=== PATIENT | male | born 1975 | race Caucasian/White ===

== ENCOUNTER → 2018-04-11 10:51 | Outpatient (CLI) | payer OTHER, SELFPAY ==
--- NOTE | 2018-04-11 10:52 | VDLE_ITS ---
Reason For Study: LEG PAIN RIGHT LEFT GSV is normal. CFV is compressible, spontaneous, phasic, CFV is compressible, spontaneous, phasic, competent, and demonstrates normal competent and demonstrates normal augmentation. augmentation. FV is compressible, spontaneous, phasic, competent and demonstrates normal augmentation. POP V is compressible, spontaneous, phasic, competent and demonstrates normal augmentation. T/P Trunk is compressible. PTV is compressible. RT PerV is compressible. Incidental finding: Absent color flow and intraluminal echogenicity SFA. Procedure Exam performed in department. A preliminary report was called and/or faxed to Jacqui Lind and Dr. Guevara. Interpretation Summary Deep veins of the right lower extremity are patent and compressible segmentally. There is no evidence of right lower extremity deep vein thrombosis. Valvular competence appears intact within the proximal deep venous system on the right . The right greater saphenous vein appears patent and compressible segmentally. Incidental note is made of an apparent absence of arterial flow in the right superficial femoral artery. Clinical correlation is advised. Ordering Physician: Valdez Lind Referring Physician: Srinath Guevara Performed By: Erica Ruiz RVT
== END ==
PROVIDERS: Family Provider Student in an Organized Health Care Education/Training Program; PCP Student in an Organized Health Care Education/Training Program; Visit Provider Physician Assistant Surgical
DX: M79.661 Pain in right lower leg (principal)
CPT/HCPCS: 93971

== ENCOUNTER 2018-04-12 12:09 | Emergency (ER) | payer OTHER, SELFPAY ==
[2018-04-12 12:11] VITALS: BP 149/91; PULSE 72; RESP 18; TEMP 36.6; O2SAT 98; BMI 58.7
--- NOTE | 2018-04-12 12:26 | NURSING ---
PT HAS BEEN OUT OF HOME MEDICATIONS FOR 2 WEEKS. PT EDUCATED ON THE IMPORTANCE OF TAKING HIS DIABETIC AND BLOOD THINNER MEDICATIONS. PT STATED HE UNDERSTOOD.
--- NOTE | 2018-04-12 12:38 | ED.DCSUM_ITS ---
- ER Visit Summary Date of Service: 04/12/18 Chief Complaint: Right leg pain with diagnosed blood clot History of Present Illness: The patient is a 42 M who presents for evaluation and treatment after being diagnosed with a blood clot in his right superficial femoral vein. Patient presented to urgent care yesterday due to right pain. It is been going on for a week and a half, crampy in nature and is severe at times. Patient had an ultrasound performed and was notified that it showed a blood clot in the right upper facial femoral vein. Patient is on Plavix but no anticoagulants. He denies any chest pain, shortness of breath, dizziness or lightheadedness, or other complaints other than the leg pain. 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 No recent travel or surgery. No history of venous thromboembolism. No known history of cancer. Physical Examination: Vital signs: afebrile, hemodynamically stable, no hypoxia on room air General: well nourished, well developed, in no distress Skin: warm, dry, no rash, no pallor HEENT: normocephalic and atraumatic; PERRL, EOMI, moist mucous membranes Cardiovascular: regular rate and rhythm without murmurs, no peripheral edema, 2 + pulses all distal extremities Respiratory: No increased work of breathing, lungs are clear to auscultation bilaterally, no rales, rhonchi or wheezing Abdominal: Abdomen is soft, nontender with normoactive bowel sounds, no guarding or rebound, no masses MSK: Moves all extremities, no deformities, normal strength, tenderness to palpation of the right medial thigh, tenderness to palpation of the posterior right calf, positive Homans sign. No erythema, swelling, induration or asymmetry to the lower extremities. DP pulses are 2+ and symmetric. Neuro: Awake and alert, oriented ?4. No facial droop, sensation and motor function intact and symmetric Test Results: Abnormal Lab Results 04/12/18 04/12/18 04/12/18 12:48 12:48 12:48 WBC 9.7 RBC 4.54 L Hgb 14.5 Hct 41.9 MCV 92.3 MCH 31.9 MCHC 34.6 RDW 13.2 RDW Differential 44.2 H Plt Count 233 MPV 9.7 PT 12.6 INR 0.9 APTT 26.9 Sodium 136 Potassium 3.8 Chloride 104 Carbon Dioxide 24.0 Anion Gap 8 BUN 14 Creatinine 0.88 Estim Creat Clear Calc 115.28 Est GFR (MDRD) Af Amer 121 Est GFR (MDRD) Non-Af 100 BUN/Creatinine Ratio 15.8 Glucose 233 H Calcium 8.6 Total Bilirubin 0.30 AST 9 L ALT 19 Alkaline Phosphatase 108 Total Protein 6.9 Albumin 3.8 Globulin 3.1 Albumin/Globulin Ratio 1.2 Emergency Department Course and Treatment: Labs were performed to obtain a baseline renal, hepatic and coagulation status prior to initiation of any anticoagulation. Patient has no symptoms that would be concerning for an associated pulmonary embolism. Patient was discussed with Dr. Samuels's office, and they sent the US results to the ED for review, the results had not been formally read or reported yet. The results stated there was no DVT, as the patient complained of, but rather an incidental finding of a right superficial femoral artery occlusion. I spoke with the therapy technician the perform the exam, and the patient had good distal blood flow to the occlusion and in the rest of the leg. The lower extremity was reevaluated, and there is strong symmetric DP and PT pulses, warmth in the legs down to the toes, good cap refill in the toes, skin is pink, sensation and motor function is intact. The legs are symmetric in appearance. There is no indication of acute arterial occlusion requiring emergent vascular intervention. I had a long discussion with the patient about the importance of him taking his Plavix because he has peripheral artery disease. I discussed the findings on the exam with Dr. Samuels, who has an appointment with the patient tomorrow for his annual physical. She will make sure he gets vascular follow-up and necessary treatment for his arterial clot. Patient plans to keep his appointment tomorrow. He was discharged home well-appearing and in good condition. Treatment Plan: [] Disposition: [] Impression: Peripheral artery disease, right superficial femoral artery occlusion with intact distal blood flow This note was generated with [employer] dictation software. It may contain incorrect words, spelling, and punctuation that were not noted in review of the chart prior to signing ED Disposition - Plan for ED Patient: Disposition: Home or Assisted Living Chief Complaint: Lower Extremity Injury Instructions: Understanding Peripheral Artery Disease, ED PVD Referrals: Srinath Samuels DO [Primary Care Provider] - 1 Day Additional Instructions: Please keep your appointment tomorrow with Dr. Samuels as scheduled. She will sure you get referral for a vascular surgeon any further needed testing. All your medications as prescribed, including your Plavix. Do not miss any doses. If you have any worsening of your condition or any new concerning symptoms, please return immediately to the emergency department for another evaluation.
[2018-04-12] MEDS: HYDROcodone Bitartrate/Apap 5/325 Tablet PO (12:56)
[2018-04-12 12:57] LABS: Hematocrit 41.9 % (40-54); Hemoglobin 14.5 g/dl (13.0-16.5); Mean Corp Hgb Conc 34.6 g/gl (32-36); Mean Corpuscular Hgb 31.9 pg (27.0-32.0); Mean Corpuscular Volume 92.3 fL (80-94); Mean Platelet Vol. 9.7 fl (6.2-12.0); Platelet Count 233 K/mm3 (150-450); RBC Distribution Width CV 13.2 % (11.6-14.6); RBC Distribution Width SD 44.2 fl (35.1-43.9); Red Blood Count 4.54 M/mm3 (4.6-6.2); Scan Indicated on CBC? Y/N NO; White Blood Count 9.7 K/mm3 (4.4-11.0)
[2018-04-12 13:04] LABS: International Normalized Ratio 0.9; Prothrombin Time (Protime)PT. 12.6 SECONDS (11.7-14.9)
[2018-04-12 13:05] LABS: Partial Thromboplast Time 26.9 Seconds (24.1-36.2)
[2018-04-12 13:10] LABS: ALB/GLOB Ratio 1.2 RATIO (0.9-2.4); AST(SGOT) 9 U/L (15-37); Alanine Aminotransfer ALT/SGPT 19 U/L (16-61); Albumin, Serum 3.8 g/dL (3.2-5.0); Alkaline Phosphatase 108 U/L (45-117); Anion Gap 8 (5-15); BUN 14 mg/dL (7-18); BUN/Creat Ratio 15.8 RATIO (10-20); Calcium,Total 8.6 mg/dL (8.5-10.1); Chloride 104 mmol/L (98-107); Creatinine, Serum 0.88 mg/dL (0.70-1.30); EST Glomerular Filtration Rate 100 mL/min (>60); Est Glom Filt Rate - Afr Amer 121 mL/min (>60); Estimated Creatinine Clearance 115.28 ml/min; Globulin 3.1 g/dL (2.2-4.2); Glucose 233 mg/dL (74-106); Potassium 3.8 mmol/L (3.5-5.1); Protein, Total 6.9 g/dL (6.4-8.2); Sodium Level 136 mmol/L (136-145)
--- NOTE | 2018-04-12 14:55 | ED.DEP ---
ED Disposition - Plan for ED Patient: Disposition: Home or Assisted Living Chief Complaint: Lower Extremity Injury Instructions: ED PVD, Understanding Peripheral Artery Disease Referrals: Srinath Samuels DO [Primary Care Provider] - 1 Day Additional Instructions: Please keep your appointment tomorrow with Dr. Samuels as scheduled. She will sure you get referral for a vascular surgeon any further needed testing. All your medications as prescribed, including your Plavix. Do not miss any doses. If you have any worsening of your condition or any new concerning symptoms, please return immediately to the emergency department for another evaluation.
[2018-04-12 15:22] VITALS: BP 138/76; PULSE 90; RESP 14; O2SAT 99
== END 2018-04-12 15:22 | disposition home or self-care (01) ==
PROVIDERS: Emergency Provider Emergency Medicine; Family Provider Student in an Organized Health Care Education/Training Program; PCP Student in an Organized Health Care Education/Training Program
DX: I73.9 Peripheral vascular disease, unspecified (principal); I77.1 Stricture of artery; I25.10 Atherosclerotic heart disease of native coronary artery without angina pectoris; I10 Essential (primary) hypertension; Z79.84 Long term (current) use of oral hypoglycemic drugs; Z79.02 Long term (current) use of antithrombotics/antiplatelets; Z79.899 Other long term (current) drug therapy; Z72.0 Tobacco use
CPT/HCPCS: 80053; 85027; 85610; 85730; 99284; A4216

== ENCOUNTER → 2018-05-26 14:43 | Outpatient (CLI) | payer OTHER, SELFPAY ==
--- NOTE | 2018-05-31 05:59 | LEAS ---
Arterial Study - Arterial Study Arterial Study: Bilateral lower extremity noninvasive arterial exam at rest Patient with bilateral extremity calf claudication Right lower extremity The right low thigh index is abnormal at 0.62. Calf index is 0.66. The right PT and DP ankle-brachial indices at rest are 0.48 and 0.57 respectively with notably abnormal digital indices of 0.23. The right posterior tibial and dorsalis pedis Doppler waveforms are only monophasic. Volume pulse recordings do not demonstrate amplification the calf. All waveforms from the low thigh calf and ankle are depressed and the digital waveforms are significantly depressed Left lower extremity The left low thigh index is normal at 1.13. The calf index is 1.02. Left PT and DP ankle-brachial indices at rest are 1 and 0.98 respectively. The digital indices are abnormal at 0.54. The left posterior tibial and dorsalis pedis Doppler waveforms are triphasic. Volume pulse recordings however do not demonstrate amplification at the calf. The ankle and digital waveforms are mildly depressed. Impression Markedly abnormal right lower extremity with abnormal indices throughout well within the range of vascular claudication. Digital pressures markedly abnormal consistent with rest pain. Findings suggest iliofemoral inflow disease on the right. Suspect additional distal small vessel disease. Left lower extremity demonstrates normal resting indices throughout. The digital indices are diminished consistent with distal small vessel disease. Mark Machado M.D., F.A.C.S.
== END ==
PROVIDERS: Family Provider Student in an Organized Health Care Education/Training Program; PCP Student in an Organized Health Care Education/Training Program; Visit Provider Surgery
DX: I70.201 Unspecified atherosclerosis of native arteries of extremities, right leg (principal)
CPT/HCPCS: 93923

== ENCOUNTER 2018-06-30 08:44 | Day surgery (SDC) | payer OTHER, SELFPAY ==
--- NOTE | 2018-06-24 15:41 | EKG12_ITS ---
Test Reason : PRE-SURGERY Blood Pressure : / mmHG Vent. Rate : 056 BPM Atrial Rate : 056 BPM P-R Int : 130 ms QRS Dur : 090 ms QT Int : 414 ms P-R-T Axes : 033 062 054 degrees QTc Int : 399 ms Sinus bradycardia Otherwise normal ECG Confirmed by ELAN DOZIER, JEY ([id number]), school photograph editor AALIYAH KNOTT ([id number]) on 06/27/2018 2:22:47 PM Referred By: Mark Machado Confirmed By:JEY ANSARI MD
[2018-06-24 16:05] LABS: Hematocrit 42.7 % (40-54); Hemoglobin 14.2 g/dl (13.0-16.5); Mean Corp Hgb Conc 33.3 g/gl (32-36); Mean Corpuscular Hgb 31.2 pg (27.0-32.0); Mean Corpuscular Volume 93.8 fL (80-94); Mean Platelet Vol. 9.5 fl (6.2-12.0); Platelet Count 284 K/mm3 (150-450); RBC Distribution Width CV 13.3 % (11.6-14.6); RBC Distribution Width SD 45.7 fl (35.1-43.9); Red Blood Count 4.55 M/mm3 (4.6-6.2); White Blood Count 9.5 K/mm3 (4.4-11.0)
[2018-06-24 16:06] LABS: Scan Indicated on CBC? Y/N NO
[2018-06-24 16:39] LABS: Anion Gap 9 (5-15); BUN 18 mg/dL (7-18); BUN/Creat Ratio 20.8 RATIO (10-20); Calcium,Total 8.7 mg/dL (8.5-10.1); Chloride 104 mmol/L (98-107); Creatinine, Serum 0.87 mg/dL (0.70-1.30); EST Glomerular Filtration Rate 102 mL/min (>60); Est Glom Filt Rate - Afr Amer 123 mL/min (>60); Glucose 118 mg/dL (74-106); Potassium 4.2 mmol/L (3.5-5.1); Sodium Level 139 mmol/L (136-145)
[2018-06-29 07:55] VITALS: BMI 27.3
[2018-06-30 14:41] LABS: ACT Activated Clotting Time 131 sec (74-137)
[2018-06-30 14:41] LABS: ACT Activated Clotting Time 224 sec (74-137)
[2018-06-30 14:41] LABS: ACT Activated Clotting Time 208 sec (74-137)
[2018-06-30 14:41] LABS: ACT Activated Clotting Time 235 sec (74-137)
[2018-06-30 14:41] LABS: ACT Activated Clotting Time 235 sec (74-137)
[2018-06-30 15:45] VITALS: BP 111/69; PULSE 51; RESP 18; TEMP 36.7; O2SAT 98
[2018-06-30 16:00] VITALS: BP 111/65; PULSE 54; RESP 16; TEMP 36.7; O2SAT 94
[2018-06-30 16:30] VITALS: BP 109/64; PULSE 54; RESP 16; TEMP 36.7; O2SAT 97
[2018-06-30] MEDS: HYDROcodone Bitartrate/Apap 5/325 Tablet PO (16:45)
[2018-06-30 17:00] VITALS: BP 117/71; PULSE 61; RESP 16; TEMP 36.7; O2SAT 97
[2018-06-30 18:00] VITALS: BP 123/73; PULSE 51; RESP 16; TEMP 37.1; O2SAT 97
--- NOTE | 2018-06-30 18:42 | PCM.OPRPT ---
Problem List (1) Femoral artery occlusion, right Status: Acute Report of Operation Date of Procedure: 06/30/18 Pre-Operative Diagnosis: Severe right lower extremity vascular claudication Post-Operative Diagnosis: Severe right lower extremity vascular claudication with long segment right superficial femoral artery occlusion from its origin down close to Clark's canal Surgery/Procedure Performed:: Abdominal pelvic right lower extremity arteriogram with endovascular turbo Hawk atherectomy and angioplasty and Stent grafting. [place] Viabahn 6 x 250 mm. [place] Tigris 6 x 100 mm Description of Surgical Findings:: Timeout and informed consent was obtained. 42-year-old kishore was taken to special procedure lab. He was placed supine on the table. Throughout the procedure he had iron micrograms of fentanyl and 4 mg Versed is intravenous sedation. Bilateral groins were sterilely prepped draped. Ultrasound was used to identify the left common femoral artery. Under ultrasound guidance 2% lidocaine was instilled as a local anesthetic. A total of 10 cc was used throughout the procedure. Micropuncture needle was inserted retrograde and with flow to the left common femoral artery followed by micropuncture wire. Micropuncture sheath. 035 J-wire was inserted. I 5 [place] short sheath dilator was inserted. An 035 angled Glidewire was used to place a 5 [place] universal flush catheter into the abdominal aorta. Using Visipaque contrast the rate of 15 cc a second for 15 cc a AP aortogram was obtained. Using the angled Glidewire and the flush catheter [place] was gained to the right distal external iliac. I then exchanged out for a 035 quick cross catheter. Static views of the right thigh were obtained. I was then able to place an 035 stiff Glidewire. I remove the quick cross catheter and the 5 [place] sheath and was able to advance a 7 [place] destination sheath. Throughout the procedure then in aliquots the patient received a total of 14,000 units of heparin based upon body weight and ACT measurements. Having the destination sheath and placed I used a 035 quick cross catheter and a connect wire was able to get through the Of the flush occlusion of the right superficial femoral artery and I was able to use the wire to advance. I then exchanged out for an 018 quick cross catheter was able to advance the connect wire down to the distal right superficial femoral artery but it would not advance further so that I withdrew that 018 quick cross catheter we placed an 035 quick cross catheter remove the connect wire placed an 035 stiff Glidewire and was then able to achieve true lumen. I advanced the 035 quick cross and obtain images of the right knee area. Having achieved that I then placed a 6 mm spider device. I placed a 4 x 80 mm ever cross balloon and performed very minimal balloon angioplasty of the entire area of occluded right superficial femoral artery from its origin down close to Clark's canal. I then utilized a LXM [employer] atherectomy device. I tried to stay contralateral to the area of sub-intimal wire placement. Several different passes were performed. Good specimen was obtained. The patient seemed to tolerate that well. Hand-injection views however demonstrated suggestion of possible slight pseudoaneurysm proximally and area of dissection distally. Even after low-grade angioplasty with a 6 x 200 mm ever cross balloon I was not happy with the result. So I then placed proximally a [place] Viabahn 6 x 250 [place] device. [id number]. Serial #[id number]. That was nicely positioned just at the origin of the right superficial femoral artery. Distally however there was still dissection so I then placed a core Tigris 6 500 mm device. Reference number [id number] a with a serial number of [id number]. Both of the stents were then post angioplastied with a 6 x 200 mm ever cross balloon. Hand-injection view done now through the destination sheath demonstrates complete resolution of all areas of previous total occlusion. There is excellent flow to the popliteal area and infrageniculate vessels. I withdrew the sheath. Using a 035 Magic wire then inserted a Perclose device on the left. The Perclose device was applied with excellent results. There were no apparent complications blood loss was minimal he tolerated the procedure well there was a palpable right DP pulse at the completion he was taken to the recovery area in satisfactory condition. Images demonstrated a patent abdominal aorta with mild occlusive disease distally just prior to the bifurcation but not hemodynamically significant. Bilateral common femoral arteries and internal iliac arteries and external iliac arteries are widely patent. The right common femoral artery is patent as is the right profundofemoral. There was flush occlusion of the origin of the right superficial femoral artery with long segment occlusion down to approximately 4 cm from Clark's canal. There appears to be at least initial three-vessel runoff in the right infrageniculate area. Subsequent to the treatment of the right superficial femoral artery with atherectomy and angioplasty and stent graft placement there now appears to be complete resolution of the area of total occlusion. There appears to be spasm in the infra geniculate area clinically foot appear to be warm with a palpable DP pulse. Total contrast used was 170 cc Impression Successful reconstitution of complete occlusion right superficial femoral artery with atherectomy and angioplasty and stent graft placement Mark Machado M.D., F.A.C.S. Type of Anesthesia:: IV Sedation, Local
--- NOTE | 2018-06-30 18:54 | OP.PCM_ITS ---
Problem List (1) Femoral artery occlusion, right Status: Acute Report of Operation Date of Procedure: 06/30/18 Pre-Operative Diagnosis: Severe right lower extremity vascular claudication Post-Operative Diagnosis: Severe right lower extremity vascular claudication with long segment right superficial femoral artery occlusion from its origin down close to Clark's canal Surgery/Procedure Performed:: Abdominal pelvic right lower extremity arteriogram with endovascular turbo Hawk atherectomy and angioplasty and Stent grafting. [place] Viabahn 6 x 250 mm. [place] Tigris 6 x 100 mm Description of Surgical Findings:: Timeout and informed consent was obtained. 42-year-old kishore was taken to special procedure lab. He was placed supine on the table. Throughout the procedure he had iron micrograms of fentanyl and 4 mg Versed is intravenous sedation. Bilateral groins were sterilely prepped draped. Ultrasound was used to identify the left common femoral artery. Under ultrasound guidance 2% lidocaine was instilled as a local anesthetic. A total of 10 cc was used throughout the procedure. Micropuncture needle was inserted retrograde and with flow to the left common femoral artery followed by micropuncture wire. Micropuncture sheath. 035 J-wire was inserted. I 5 [place] short sheath dilator was inserted. An 035 angled Glidewire was used to place a 5 [place] universal flush catheter into the abdominal aorta. Using Visipaque contrast the rate of 15 cc a second for 15 cc a AP aortogram was obtained. Using the angled Glidewire and the flush catheter [place] was gained to the right distal external iliac. I then exchanged out for a 035 quick cross catheter. Static views of the right thigh were obtained. I was then able to place an 035 stiff Glidewire. I remove the quick cross catheter and the 5 [place] sheath and was able to advance a 7 [place] destination sheath. Throughout the procedure then in aliquots the patient received a total of 14,000 units of heparin based upon body weight and ACT measurements. Having the destination sheath and placed I used a 035 quick cross catheter and a connect wire was able to get through the Of the flush occlusion of the right superficial femoral artery and I was able to use the wire to advance. I then exchanged out for an 018 quick cross catheter was able to advance the connect wire down to the distal right superficial femoral artery but it would not advance further so that I withdrew that 018 quick cross catheter we placed an 035 quick cross catheter remove the connect wire placed an 035 stiff Glidewire and was then able to achieve true lumen. I advanced the 035 quick cross and obtain images of the right knee area. Having achieved that I then placed a 6 mm spider device. I placed a 4 x 80 mm ever cross balloon and performed very minimal balloon angioplasty of the entire area of occluded right superficial femoral artery from its origin down close to Clark's canal. I then utilized a LXM [employer] atherectomy device. I tried to stay contralateral to the area of sub-intimal wire placement. Several different passes were performed. Good specimen was obtained. The patient seemed to tolerate that well. Hand-i njection views however demonstrated suggestion of possible slight pseudoaneurysm proximally and area of dissection distally. Even after low-grade angioplasty with a 6 x 200 mm ever cross balloon I was not happy with the result. So I then placed proximally a [place] Viabahn 6 x 250 [place] device. [id number]. Serial #[id number]. That was nicely positioned just at the origin of the right superficial femoral artery. Distally however there was still dissection so I then placed a core Tigris 6 500 mm device. Reference number [id number] a with a serial number of [id number]. Both of the stents were then post angioplastied with a 6 x 200 mm ever cross balloon. Hand-injection view done now through the destination sheath demonstrates complete resolution of all areas of previous total occlusion. There is excellent flow to the popliteal area and infrageniculate vessels. I withdrew the sheath. Using a 035 Magic wire then inserted a Perclose device on the left. The Perclose device was applied with excellent results. There were no apparent complications blood loss was minimal he tolerated the procedure well there was a palpable right DP pulse at the completion he was taken to the recovery area in satisfactory condition. Images demonstrated a patent abdominal aorta with mild occlusive disease distally just prior to the bifurcation but not hemodynamically significant. Bilateral common femoral arteries and internal iliac arteries and external iliac arteries are widely patent. The right common femoral artery is patent as is the right profundofemoral. There was flush occlusion of the origin of the right superficial femoral artery with long segment occlusion down to approximately 4 cm from Clark's canal. There appears to be at least initial three-vessel runoff in the right infrageniculate area. Subsequent to the treatment of the right superficial femoral artery with atherectomy and angioplasty and stent graft placement there now appears to be complete resolution of the area of total occlusion. There appears to be spasm in the infra geniculate area clinically foot appear to be warm with a palpable DP pulse. Total contrast used was 170 cc Impression Successful reconstitution of complete occlusion right superficial femoral artery with atherectomy and angioplasty and stent graft placement Mark Machado M.D., F.A.C.S. Type of Anesthesia:: IV Sedation, Local
[2018-06-30 19:00] VITALS: BP 136/68; PULSE 62; RESP 18; TEMP 36.1; O2SAT 97
--- NOTE | 2018-06-30 19:10 | NURSING ---
Pt walked hallway post bedrest. Heart cath site c/d/i, no signs of bleeding or hematoma noted. Pt tolerated walking well.
== END 2018-06-30 19:30 | disposition home or self-care (01) ==
LOC: CLSP 08:44 → PCU 15:50
PROVIDERS: Family Provider Student in an Organized Health Care Education/Training Program; PCP Student in an Organized Health Care Education/Training Program; Referring Provider Surgery; Visit Provider Surgery
DX: I70.211 Atherosclerosis of native arteries of extremities with intermittent claudication, right leg (principal); E11.9 Type 2 diabetes mellitus without complications; I51.9 Heart disease, unspecified; I25.2 Old myocardial infarction; Z95.5 Presence of coronary angioplasty implant and graft; Z79.84 Long term (current) use of oral hypoglycemic drugs; Z79.899 Other long term (current) drug therapy; F17.210 Nicotine dependence, cigarettes, uncomplicated
CPT/HCPCS: 36200; 36245; 36415; 37227; 75625; 75710; 76937; 80048; 85027; 85347; 93005; 99152; 99153; J7030; J7040; Q9967; A4216; C1714; C1725; C1760; C1769; C1874; C1884; C1887; C1894

== ENCOUNTER → 2018-07-27 13:43 | Outpatient (CLI) | payer OTHER, SELFPAY ==
--- NOTE | 2018-07-27 17:26 | LEAS ---
Arterial Study - Arterial Study Arterial Study: Bilateral lower extremity noninvasive arterial exam with exercise Patient with history of peripheral vascular occlusive disease and right lower extremity stent Right lower extremity The right PT and DP ankle-brachial indices at rest are 1.04 and 0.97 respectively with a digital index of 0.52. The right posterior tibial and dorsalis pedis Doppler waveforms are triphasic. Volume pulse recordings demonstrate nice waveforms at the calf ankle and digital level With exercise the right ROBERT goes from resting 1.042 media after exercise at 1.01 Left lower extremity The left low thigh index is 0.87. The left calf index is 1.03. The left PT and DP ankle-brachial indices at rest are 0.93 and 0.94 respectively. Digital index on the left is 0.66 the left posterior tibial and dorsalis pedis Doppler waveforms are triphasic. The volume pulse recordings demonstrate normal amplification the calf. The ankle waveforms are well maintained. Digital waveforms are moderately depressed. With exercise left ROBERT goes from resting 0.942 immediately after exercise at 0.9 Impression Findings suggest normal right lower extremity large vessel arterial inflow with normal exercise response. Digital indices are moderately depressed aspect consistent with distal small vessel disease versus temperature effect Left lower extremity resting indices are mildly abnormal at the low thigh PT and DP levels consistent with mild occlusive disease which would be in the range of early claudication. The exercise indices however do not demonstrate a clinically significant drop. Is of additional note that the patient was asymptomatic. The left digital indices again moderately depressed consistent with distal small vessel disease or temperature effect Mark Machado M.D., F.A.C.S.
== END ==
PROVIDERS: Family Provider Student in an Organized Health Care Education/Training Program; PCP Student in an Organized Health Care Education/Training Program; Referring Provider Surgery; Visit Provider Surgery
DX: I70.201 Unspecified atherosclerosis of native arteries of extremities, right leg (principal)
CPT/HCPCS: 93924

== ENCOUNTER 2018-11-23 08:08 | Emergency (ER) | payer OTHER, SELFPAY ==
[2018-11-23 08:08] VITALS: BP 138/80; PULSE 68; RESP 18; TEMP 36.6; O2SAT 100; BMI 27.9
--- NOTE | 2018-11-23 08:24 | EKG12_ITS ---
Test Reason : DIZZINESS Blood Pressure : / mmHG Vent. Rate : 060 BPM Atrial Rate : 060 BPM P-R Int : 128 ms QRS Dur : 082 ms QT Int : 378 ms P-R-T Axes : 017 039 051 degrees QTc Int : 378 ms Normal sinus rhythm Normal ECG Confirmed by JEY ANSARI MD ([id number]), editor book AALIYAH KNOTT ([id number]) on 11/29/2018 8:49:44 AM Referred By: THERON Confirmed By:JEY ANSARI MD
--- NOTE | 2018-11-23 08:25 | CT_ITS ---
STUDY: CTA NECK WITH CONTRAST REASON FOR EXAM: Male, 43 years old. Dizziness. RADIATION DOSAGE (If Supplied By Facility): CTDIvol = ( 28 ) mGy, DLP = ( 1352.61 ) mGycm TECHNIQUE: CT angiography with multi-detector data acquisition was performed from the aortic arch to the skull base following intravenous administration of Isovue 370 100 IV. MIP images were reconstructed from the axial data set. Post-processing of the angiographic images was performed, with multiplanar reformation and 3D reconstruction. Individualized dose optimization techniques were used for this CT. COMPARISON: None. FINDINGS: AORTIC ARCH: Normal visualized aortic arch. Normal origins of the brachiocephalic, left common carotid, and left subclavian arteries. RIGHT CAROTID ARTERIES: Normal right common carotid artery (CCA). Normal right common carotid bulb. Normal origin of the right internal carotid (ICA) artery without a hemodynamically significant stenosis. Normal visualized cervical portion of the right internal carotid artery. Normal origin of the right external carotid artery (ECA). LEFT CAROTID ARTERIES: Normal left common carotid artery (CCA). Normal left common carotid bulb. Normal origin of the left internal carotid (ICA) artery without a hemodynamically significant stenosis. Normal visualized cervical portion of the left internal carotid artery. Normal origin of the left external carotid artery (ECA). VERTEBRAL ARTERIES: Normal bilateral vertebral arteries. IMPRESSION: Normal bilateral cervical carotid and vertebral arteries. Electronically Signed: Puneet Ross, at 9:34 EST , Service support , STUDY: CTA OF THE BRAIN REASON FOR EXAM: Male, 43 years old. Dizziness. RADIATION DOSAGE (If Supplied By Facility): CTDIvol = ( 29.09 ) mGy, DLP = ( 1352.61 ) mGycm TECHNIQUE: CT angiography was performed with a multi-detector CT scanner. Data acquisition was obtained from the skull base through the vertex following intravenous administration of Isovue 370 100 IV. MIP images were reconstructed from the axial data set. Post-processing of the angiographic images was performed, with multiplanar reformation and 3D reconstruction. Individualized dose optimization techniques were used for this CT. COMPARISON: None. FINDINGS: Normal bilateral petrous carotid arteries. Normal right cavernous carotid artery with a normal supraclinoid bifurcation. There is calcified plaque formation of the left cavernous carotid artery, without a cross-sectional luminal stenosis. Normal right A1 segments of the anterior cerebral artery. Normal left A1 segments of the anterior cerebral artery. Normal intact anterior communicating artery (ACOM). Normal bilateral A2 segments of the anterior cerebral arteries. Normal right M1 and M2 segments of the middle cerebral arteries, with a normal M1 bifurcation. Normal left M1 and M2 segments of the middle cerebral arteries, with a normal M1 bifurcation. Normal right posterior communicating artery (PCOM). Normal left posterior communicating artery (PCOM). Normal bilateral vertebral arteries. Normal basilar artery with a normal basilar bifurcation. The visualized bilateral superior cerebellar (SCA) arteries are normal. Normal bilateral P1, P2 and visualized P3 segments of the posterior cerebral arteries. There is no demonstrated aneurysm of the [place]. There is no demonstrated abnormality of the visualized brain. CT/CTA Head W/WO Contrast IMPRESSION: Nonstenotic calcified plaques of the left cavernous carotid artery. Electronically Signed: Puneet Ross, at 9:35 EST , Service support ,
--- NOTE | 2018-11-23 08:25 | CT_ITS ---
STUDY: CTA NECK WITH CONTRAST REASON FOR EXAM: Male, 43 years old. Dizziness. RADIATION DOSAGE (If Supplied By Facility): CTDIvol = ( 28 ) mGy, DLP = ( 1352.61 ) mGycm TECHNIQUE: CT angiography with multi-detector data acquisition was performed from the aortic arch to the skull base following intravenous administration of Isovue 370 100 IV. MIP images were reconstructed from the axial data set. Post-processing of the angiographic images was performed, with multiplanar reformation and 3D reconstruction. Individualized dose optimization techniques were used for this CT. COMPARISON: None. FINDINGS: AORTIC ARCH: Normal visualized aortic arch. Normal origins of the brachiocephalic, left common carotid, and left subclavian arteries. RIGHT CAROTID ARTERIES: Normal right common carotid artery (CCA). Normal right common carotid bulb. Normal origin of the right internal carotid (ICA) artery without a hemodynamically significant stenosis. Normal visualized cervical portion of the right internal carotid artery. Normal origin of the right external carotid artery (ECA). LEFT CAROTID ARTERIES: Normal left common carotid artery (CCA). Normal left common carotid bulb. Normal origin of the left internal carotid (ICA) artery without a hemodynamically significant stenosis. Normal visualized cervical portion of the left internal carotid artery. Normal origin of the left external carotid artery (ECA). VERTEBRAL ARTERIES: Normal bilateral vertebral arteries. IMPRESSION: Normal bilateral cervical carotid and vertebral arteries. Electronically Signed: Puneet Ross, at 9:34 EST , Service support , STUDY: CTA OF THE BRAIN REASON FOR EXAM: Male, 43 years old. Dizziness. RADIATION DOSAGE (If Supplied By Facility): CTDIvol = ( 29.09 ) mGy, DLP = ( 1352.61 ) mGycm TECHNIQUE: CT angiography was performed with a multi-detector CT scanner. Data acquisition was obtained from the skull base through the vertex following intravenous administration of Isovue 370 100 IV. MIP images were reconstructed from the axial data set. Post-processing of the angiographic images was performed, with multiplanar reformation and 3D reconstruction. Individualized dose optimization techniques were used for this CT. COMPARISON: None. FINDINGS: Normal bilateral petrous carotid arteries. Normal right cavernous carotid artery with a normal supraclinoid bifurcation. There is calcified plaque formation of the left cavernous carotid artery, without a cross-sectional luminal stenosis. Normal right A1 segments of the anterior cerebral artery. Normal left A1 segments of the anterior cerebral artery. Normal intact anterior communicating artery (ACOM). Normal bilateral A2 segments of the anterior cerebral arteries. Normal right M1 and M2 segments of the middle cerebral arteries, with a normal M1 bifurcation. Normal left M1 and M2 segments of the middle cerebral arteries, with a normal M1 bifurcation. Normal right posterior communicating artery (PCOM). Normal left posterior communicating artery (PCOM). Normal bilateral vertebral arteries. Normal basilar artery with a normal basilar bifurcation. The visualized bilateral superior cerebellar (SCA) arteries are normal. Normal bilateral P1, P2 and visualized P3 segments of the posterior cerebral arteries. There is no demonstrated aneurysm of the [place]. There is no demonstrated abnormality of the visualized brain. CT/CTA Neck W/WO Contrast IMPRESSION: Nonstenotic calcified plaques of the left cavernous carotid artery. Electronically Signed: Puneet Ross, at 9:35 EST , Service support ,
--- NOTE | 2018-11-23 08:27 | RAD_ITS ---
STUDY: X-RAY CHEST REASON FOR EXAM: Male, 43 years old. Weakness and dizziness. TECHNIQUE: Single AP portable view of the chest. COMPARISON: Comparison is made with prior study dated November 26, 2016. FINDINGS: The lungs are clear and expanded. There is no demonstrated pleural abnormality. Normal size heart. Normal mediastinum and pj. Normal visualized pulmonary arteries. Normal visualized aortic arch and descending thoracic aorta. Normal visualized thoracic spine. Normal visualized ribs, clavicles, and shoulders. There is no demonstrated abnormality of the visualized soft tissue structures of the upper abdomen. RAD/Chest 1 View (Portable) IMPRESSION: Normal x-ray examination of the chest. Electronically Signed: Puneet Ross, at 8:57 EST , Service support ,
[2018-11-23] MEDS: Ondansetron 4 MG/2 ML Vial IV (08:51)
[2018-11-23] MEDS: Morphine 4 MG/ML Syringe IV (08:51)
[2018-11-23] MEDS: 0.9% Normal Saline 1,000 ML 1000 ML IV (08:51)
--- NOTE | 2018-11-23 08:58 | ED.VISSUMM ---
- ER Visit Summary Date of Service: 11/23/18 Chief Complaint: Headache, dizziness History of Present Illness: The patient is a 43 M with medical history significant for coronary vascular disease and peripheral vascular disease who presents to the emergency department with headache, neck pain, dizziness. Patient states that yesterday, he developed a mild headache. He states he had some pounding behind both eyes. He states he also had some posterior neck pain. Overnight, he feels like his symptoms have gotten worse. He states he has been dizzy that he describes as sensation of motion with walking. He denies any trouble speaking. He denies any vision changes. He has no history of stroke. The patient does smoke. He states his been compliant with his medications. He denies any trauma. Physical Examination: Vital signs reviewed General: Well-nourished, well-developed Head: Normocephalic, atraumatic Eyes: Pupils equal and reactive, extraocular muscles intact Neck, supple, no lymphadenopathy Heart: Regular rate and rhythm Respiratory: No distress, clear bilaterally Abdomen: Soft, nontender, nondistended, no peritoneal signs Back: Nontender Extremities: Nontender, no edema, no cords Skin: Normal color no rash Neuro: Alert and oriented, no focal or lateralizing deficits Test Results: [] Emergency Department Course and Treatment: It is hard to determine if patient's symptoms are vertiginous versus a different process. He has no history of connective tissue disorder, but does have rather significant history of coronary vascular disease. I did want to rule out vertebrobasilar insufficiency versus posterior arterial thrombus. Patient underwent CTA of the head and neck. This shows no acute arterial thrombus or acute cut off. His posterior circulation is normal. Patient's headache was treated and had resolved. He has no further dizziness. He can ambulate with steady gait. I do feel that this is more likely a peripheral vertigo. He has no other brainstem symptoms along with an unremarkable CTA. At this time, I do feel he is safe for discharge and outpatient follow-up. He is comfortable with this plan of care. Treatment Plan: [] Disposition: Discharge Impression: 1. Vertigo This note was generated with [employer] software. It may contain incorrect words, spelling, and punctuation that were not noted in review of the chart prior to signing ED Disposition - Plan for ED Patient: Instructions: ED Vertigo Unspecified Prescriptions: Meclizine HCl 25 mg PO Q8H PRN #30 tab PRN Reason: Dizziness Referrals: Srinath Samuels DO [Primary Care Provider] -
[2018-11-23 09:04] LABS: Absolute Lymphocyte Count 1.85 X10^3/ul (0.83-4.51); Absolute Neutrophil Count 7.2 X10^3/uL (2.0-7.7); Basophil# 0.02 X10^3/uL; Basophil% 0.2 % (0-1); Eosinophil# 0.05 X10^3/uL; Eosinophils% 0.5 % (0-5); Hematocrit 45.2 % (40-54); Hemoglobin 15.1 g/dl (13.0-16.5); Lymphocyte # 1.85 X10^3/ul (4.0); Lymphocyte % 18.6 % (19-41); Mean Corp Hgb Conc 33.4 g/gl (32-36); Mean Corpuscular Hgb 31.3 pg (27.0-32.0); Mean Corpuscular Volume 93.6 fL (80-94); Mean Platelet Vol. 9.5 fl (6.2-12.0); Monocyte# 0.81 X10^3/uL; Monocyte% 8.1 % (0-10); Neutrophil # 7.19 X10^3/uL (2.7-7.7); Neutrophil % 72.4 % (47-70); Platelet Count 276 K/mm3 (150-450); RBC Distribution Width SD 44.3 fl (35.1-43.9); Red Blood Count 4.83 M/mm3 (4.6-6.2); White Blood Count 9.9 K/mm3 (4.4-11.0)
[2018-11-23 09:05] LABS: POSITIVE COUNT NO; POSITIVE DIFFERENTIAL NO; POSITIVE MORPHOLOGY NO
[2018-11-23 09:20] LABS: ALB/GLOB Ratio 1.3 RATIO (0.9-2.4); AST(SGOT) 19 U/L (15-37); Alanine Aminotransfer ALT/SGPT 31 U/L (16-61); Albumin, Serum 4.1 g/dL (3.2-5.0); Alkaline Phosphatase 99 U/L (45-117); Anion Gap 10 (5-15); BUN 15 mg/dL (7-18); BUN/Creat Ratio 16.9 RATIO (10-20); Calcium,Total 8.9 mg/dL (8.5-10.1); Chloride 105 mmol/L (98-107); Creatinine, Serum 0.89 mg/dL (0.70-1.30); EST Glomerular Filtration Rate 99 mL/min (>60); Est Glom Filt Rate - Afr Amer 120 mL/min (>60); Estimated Creatinine Clearance 109.36 ml/min; Globulin 3.2 g/dL (2.2-4.2); Glucose 223 mg/dL (74-106); Potassium 4.1 mmol/L (3.5-5.1); Protein, Total 7.3 g/dL (6.4-8.2); Sodium Level 138 mmol/L (136-145)
[2018-11-23 09:49] VITALS: BP 114/70; PULSE 58; RESP 19; O2SAT 99
== END 2018-11-23 09:51 | disposition home or self-care (01) ==
LOC: ED 08:41
PROVIDERS: Emergency Provider Emergency Medicine; Family Provider Student in an Organized Health Care Education/Training Program; PCP Student in an Organized Health Care Education/Training Program
DX: R42 Dizziness and giddiness (principal); I25.10 Atherosclerotic heart disease of native coronary artery without angina pectoris; E11.9 Type 2 diabetes mellitus without complications; I73.9 Peripheral vascular disease, unspecified; R11.0 Nausea; M54.2 Cervicalgia; R51 Headache; Z79.84 Long term (current) use of oral hypoglycemic drugs; Z79.02 Long term (current) use of antithrombotics/antiplatelets; Z79.82 Long term (current) use of aspirin; Z79.899 Other long term (current) drug therapy
CPT/HCPCS: 70496; 70498; 71045; 80053; 85025; 93005; 96361; 96374; 96375; 99284; J7030; Q9967; J2405

== ENCOUNTER 2019-01-17 10:36 | Emergency (ER) | payer OTHER, SELFPAY ==
[2019-01-17 10:37] VITALS: BP 124/74; PULSE 71; RESP 18; TEMP 36.6; O2SAT 98; BMI 27.6
--- NOTE | 2019-01-17 10:58 | VDLE_ITS ---
Reason For Study: LEG PAIN RIGHT LEFT GSV is normal. CFV is compressible, spontaneous, phasic, CFV is compressible, spontaneous, phasic, competent, and demonstrates normal competent and demonstrates normal augmentation. augmentation. FV is compressible, spontaneous, phasic, competent and demonstrates normal augmentation. POP V is compressible, spontaneous, phasic, competent and demonstrates normal augmentation. T/P Trunk is compressible. PTV is compressible. RT PerV is compressible. Incidental finding of RT SFA stent absent color flow with intraluminal echoes. Procedure Exam performed portable in ED. A preliminary report was called and/or faxed to Dr. Rodríguez. Interpretation Summary There is no evidence of right lower extremity deep vein thrombosis. Right greater saphenous vein appears patent and compressible segmentally. Normal flow patterns left common femoral vein Occluded right superficial femoral artery stent Ordering Physician: Ollie Rodríguez Referring Physician: Srinath Guevara Performed By: Erica Ruiz RVT
--- NOTE | 2019-01-17 11:01 | ED.DCSUM_ITS ---
History of Present Illness Chief Complaint: Lower Extremity Injury Informant: Patient Onset: Days - 2 Context: Gradual Onset Narrative: Nontraumatic right lower extremity pain over 2 days. Pain in the calf worse with ambulation. No recent travel, surgeries, or immobilizations. No history of PE or DVT. History of vascular stenting right lower extremity June [address] Mark Machado. He reports he is on Plavix and takes it daily. Admits to tobacco history for which he continues. He is a diabetic. Also history of coronary disease with stenting. No chest pains or shortness of breath. Pain worse with activity improves with rest. Has not made his yearly follow-up appointment again with Dr. Machado Prior similar symptoms: Yes Past Medical History - Allergies and Home Meds Allergies/Adverse Reactions: Allergies sertraline Allergy (Severe, Verified 01/17/19 10:39) Rash Penicillins Allergy (Verified 01/17/19 10:39) Unknown beta fadi Adverse Reaction (Severe, Uncoded 01/17/19 10:39) bradycardia Primary Care Physician: Srinath Samuels DO [Primary Care Provider] - Surgical History: - - [employer] removal Smoking Status: Current every day smoker Review of Systems General: Denies: Chills, Fever, Sweats Eyes: Denies: Visual changes - bilaterally, Diplopia ENT: Denies: Rhinorrhea, Sore throat Cardiovascular: Denies: Chest pain, Palpitations Respiratory: Denies: Dyspnea, Cough, Dyspnea on exertion Gastrointestinal: Denies: Abdominal pain, Nausea, Vomiting, Diarrhea, Melena, Hematochezia Genitourinary: Denies: Dysuria, Hematuria, Frequency Musculoskeletal: Reports: Extremity Pain Skin: Denies: Rash, Wounds Neurological: Denies: Headache, Weakness, Numbness Physical Exam Vital Signs/Narrative: Vital Signs Temp Pulse Resp BP Pulse Ox 01/17/19 10:37 97.9 F 71 18 124/74 H 98 Inital Vital Signs reviewed: Yes General: Well nourished, Well developed, No Acute Distress Head: Normocephalic, Atraumatic Eyes: Perrl, EOMI ENT: Moist mucous membranes, No rhinorrhea Neck: Supple, Nontender Cardiovascular: Regular rate, Regular rhythm, No murmurs Respiratory: No distress, CTA bilaterally, Chest nontender Abdomen: Soft, Nontender, Nondistended, Normal bowel sounds Back: Nontender, Normal Inspection Extremities: No edema, Tenderness, Calf Tenderness - No swelling, tender mid calf mild medial thigh. 1+ dorsalis pedis and posterior tibialis pulse on the right, 2+ on the left. Skin: Normal color, No rash Neurological: Alert, Oriented x3, Cranial nerves II-XII grossly intact, Normal Strength, Normal Sensation Psychological: Normal affect, Normal Mood Diagnostic/Tx/Re-eval Right lower extremity ultrasound: Negative for DVT. Noted occluded right SFA stent. - Medical Decision Making Patient presents with claudication symptoms he does have diminished pulses however they are present distally on the right. He has calf pain. No chest pains or shortness of breath. DVT studies negative noted however occluded right SFA stent was placed in June. Discussed findings with the patient. He does have a diabetic history lower tobacco. Spoke with on-call surgeon Dr. Moran who requests I speak with Dr. Machado who was paged. Updated, he will follow-up as an outpatient. Discussed tobacco cessation with the patient. Family updated. ED Disposition - Plan for ED Patient: Disposition: Home or Assisted Living Diagnosis: Atherosclerosis of right lower extremity with intermittent claudication Instructions: ED PVD Referrals: Srinath Samuels DO [Primary Care Provider] - Mark Machado MD [STAFF PHYSICIAN] - 2 Days Additional Instructions: Ultrasound studies of right lower extremity negative for DVT, noted occluded SFA stent. Call Dr. Machado for follow-up.
--- NOTE | 2019-01-17 11:43 | NURSING ---
DR GREEN PAGED
== END 2019-01-17 12:14 | disposition home or self-care (01) ==
PROVIDERS: Emergency Provider Emergency Medicine; Family Provider Student in an Organized Health Care Education/Training Program; PCP Student in an Organized Health Care Education/Training Program
DX: I70.311 Atherosclerosis of unspecified type of bypass graft(s) of the extremities with intermittent claudication, right leg (principal); E11.9 Type 2 diabetes mellitus without complications; I25.10 Atherosclerotic heart disease of native coronary artery without angina pectoris; Z95.5 Presence of coronary angioplasty implant and graft; Z79.02 Long term (current) use of antithrombotics/antiplatelets; Z79.84 Long term (current) use of oral hypoglycemic drugs; Z79.82 Long term (current) use of aspirin; Z79.899 Other long term (current) drug therapy; F17.200 Nicotine dependence, unspecified, uncomplicated
CPT/HCPCS: 93971; 99282

== ENCOUNTER 2019-01-25 10:33 | Emergency (ER) | payer OTHER, SELFPAY ==
[2019-01-20 11:40] VITALS: BMI 26.2
[2019-01-25 10:34] VITALS: BP 115/82; PULSE 64; RESP 15; TEMP 36.3; O2SAT 98; BMI 27.5
--- NOTE | 2019-01-25 10:46 | EKG12_ITS ---
Test Reason : CP Blood Pressure : / mmHG Vent. Rate : 059 BPM Atrial Rate : 059 BPM P-R Int : 132 ms QRS Dur : 080 ms QT Int : 402 ms P-R-T Axes : 023 040 054 degrees QTc Int : 397 ms Sinus bradycardia Otherwise normal ECG Confirmed by RAMSEY CALLAHAN ([id number]), development editor ANITRA HERNANDEZ ([id number]) on 01/27/2019 10:50:12 AM Referred By: YARI Confirmed By:RAMSEY CALLAHAN
--- NOTE | 2019-01-25 10:46 | RAD_ITS ---
STUDY: X-RAY CHEST REASON FOR EXAM: Male, 43 years old. Chest and shoulder pain TECHNIQUE: Single AP portable view of the chest. COMPARISON: November 23, 2018 FINDINGS: The lungs are clear and expanded. There is no demonstrated pleural abnormality. Normal size heart. Normal mediastinum and pj. Normal visualized pulmonary arteries. Normal visualized aortic arch and descending thoracic aorta. Normal visualized thoracic spine. Normal visualized ribs, clavicles, and shoulders. There is no demonstrated abnormality of the visualized soft tissue structures of the upper abdomen. RAD/Chest 1 View (Portable) IMPRESSION: Normal x-ray examination of the chest. Electronically Signed: Misael Mcgee DO at 11:38 EDT Tel , Service support ,
[2019-01-25 11:00] VITALS: O2SAT 99
[2019-01-25 11:05] LABS: Absolute Lymphocyte Count 2.35 X10^3/ul (0.83-4.51); Absolute Neutrophil Count 4.9 X10^3/uL (2.0-7.7); Basophil# 0.04 X10^3/uL; Basophil% 0.5 % (0-1); Eosinophil# 0.13 X10^3/uL; Eosinophils% 1.6 % (0-5); Hematocrit 42.9 % (40-54); Hemoglobin 14.5 g/dl (13.0-16.5); Lymphocyte # 2.35 X10^3/ul (4.0); Lymphocyte % 29.3 % (19-41); Mean Corp Hgb Conc 33.8 g/gl (32-36); Mean Corpuscular Hgb 31.3 pg (27.0-32.0); Mean Corpuscular Volume 92.5 fL (80-94); Mean Platelet Vol. 9.5 fl (6.2-12.0); Monocyte# 0.63 X10^3/uL; Monocyte% 7.9 % (0-10); Neutrophil # 4.85 X10^3/uL (2.7-7.7); Neutrophil % 60.6 % (47-70); Platelet Count 294 K/mm3 (150-450); RBC Distribution Width CV 13.1 % (11.6-14.6); RBC Distribution Width SD 43.7 fl (35.1-43.9); Red Blood Count 4.64 M/mm3 (4.6-6.2)
[2019-01-25 11:09] LABS: POSITIVE COUNT NO; POSITIVE DIFFERENTIAL NO; POSITIVE MORPHOLOGY NO
[2019-01-25 11:18] LABS: Anion Gap 7 (5-15); BUN 13 mg/dL (7-18); BUN/Creat Ratio 15.2 RATIO (10-20); Calcium,Total 8.8 mg/dL (8.5-10.1); Chloride 108 mmol/L (98-107); Creatinine, Serum 0.86 mg/dL (0.70-1.30); EST Glomerular Filtration Rate 103 mL/min (>60); Est Glom Filt Rate - Afr Amer 124 mL/min (>60); Estimated Creatinine Clearance 113.18 ml/min; Glucose 137 mg/dL (74-106); Potassium 4.3 mmol/L (3.5-5.1); Sodium Level 140 mmol/L (136-145)
--- NOTE | 2019-01-25 11:18 | ED.DCSUM_ITS ---
- ER Visit Summary Date of Service: 01/25/19 Chief Complaint: Chest pain History of Present Illness: The patient is a 43 M who presents with chest pain. Started 12 hours ago is been continuous in the left upper chest near his left shoulder. Movement of the left arm makes it worse. He denies any other rel ieving factors. Denies any nausea, vomiting or diaphoresis. No dyspnea. He states he has a history of coronary disease and has 3 stents in his heart. He also has a stent in his right leg which is clogged and states that he needs surgery to fix it. He is scheduled to have a CAT scan with runoffs tomorrow to evaluate peripheral vasculature. Physical Examination: Vital signs reviewed. HEENT exam unremarkable. Heart is regular rate and rhythm without murmurs. Lungs are clear to auscultation. Abdomen is soft and nontender. Extremities reveal no edema. Peripheral pulses are 2+ in the left foot and decreased in the right foot, likely secondary to his occluded iliac stent on the right. Skin exam normal. Neurologic exam normal. Test Results: EKG is sinus rhythm with a rate of 59. No ST changes. Chest x- ray normal. Labs are normal as well except for glucose of 137 Emergency Department Course and Treatment: Patient received aspirin by EMS. Upon reevaluation he is symptom-free. He has had pain for greater than 12 hours. I do not feel this is cardiac in nature. Patient will continue Tylenol and his home medications. We will follow-up with his PCP. Treatment Plan: [] Disposition: Discharge Impression: Chest pain This note was generated with [employer] dictation software. It may contain incorrect words, spelling, and punctuation that were not noted in review of the chart prior to signing ED Disposition - Plan for ED Patient: Referrals: Srinath Samuels DO [Primary Care Provider] -
--- NOTE | 2019-01-25 11:50 | ED.DEP ---
ED Disposition - Plan for ED Patient: Disposition: Home or Assisted Living Instructions: ED Chest Pain NonCardiac Referrals: Srinath Samuels DO [Primary Care Provider] -
[2019-01-25 12:05] VITALS: BP 111/80; PULSE 53; RESP 15; O2SAT 98
== END 2019-01-25 12:06 | disposition home or self-care (01) ==
PROVIDERS: Emergency Provider Emergency Medicine; Family Provider Student in an Organized Health Care Education/Training Program; PCP Student in an Organized Health Care Education/Training Program
DX: R07.9 Chest pain, unspecified (principal); I25.10 Atherosclerotic heart disease of native coronary artery without angina pectoris; Z95.5 Presence of coronary angioplasty implant and graft; Z95.828 Presence of other vascular implants and grafts; Z79.82 Long term (current) use of aspirin; Z79.899 Other long term (current) drug therapy; Z72.0 Tobacco use
CPT/HCPCS: 71045; 80048; 84484; 85025; 93005; 99285; J7030; A4216

== ENCOUNTER → 2019-01-26 | Outpatient (CLI) | payer OTHER, SELFPAY ==
[2019-01-17 10:37] VITALS: BMI 27.6
[2019-01-25 10:34] VITALS: BMI 27.5
--- NOTE | 2019-01-26 07:41 | CT_ITS ---
STUDY: CTA OF THE ABDOMINAL AORTA AND BILATERAL LOWER EXTREMITIES REASON FOR EXAM: Male, 43 years old. Occluded stent RADIATION DOSAGE (If Supplied By Facility): CTDIvol = ( 12.65 ) mGy, DLP = ( 1376.40 ) mGycm TECHNIQUE: Axial CT angiography multi-detector data acquisition was obtained from the diaphragm to the feet following intravenous administration of 100 IV Isovue 370. Axial images and MIP images were reconstructed from the axial data set. Post-processing of the angiographic images was performed, with multiplanar reformation and 3D reconstruction. Individualized dose optimization techniques were used for this CT. TECHNICAL QUALITY: Good COMPARISON: None. Descriptors of Narrowing: None (0%) Mild (< 50%) Moderate (50-70%) Severe (70-90%) Subtotal/Total Occlusion (90-100%) Non-Evaluable (technically non-diagnostic FINDINGS: The lung bases are clear. The visualized portions of the heart and pericardium are within normal limits. There are no calcified gallstones present. The liver, spleen, pancreas, adrenal glands and kidneys are within normal limits. There is no bowel obstruction or inflammation. The appendix is normal. There is no abdominal or pelvic free air, free fluid or lymphadenopathy. VESSELS: Abdominal aorta: No demonstrated narrowing. Celiac and superior mesenteric arteries: No demonstrated narrowing. Inferior mesenteric artery: No demonstrated narrowing. Right renal artery(arteries): No demonstrated narrowing. Left renal artery(arteries): No demonstrated narrowing. Right common iliac artery: No demonstrated narrowing. Right external iliac artery: No demonstrated narrowing. Right internal iliac artery: There is mild diffuse narrowing. Left common iliac artery: No demonstrated narrowing. Left external iliac artery: No demonstrated narrowing. Left internal iliac artery: There is mild diffuse narrowing. RIGHT LOWER EXTREMITY Right common femoral artery: No demonstrated narrowing. Right profundus femoris: No demonstrated narrowing. Right superficial femoral: Occluded stent Right popliteal artery: Mild stenosis. Right tibioperoneal trunk: No demonstrated narrowing. Right anterior tibial artery: No demonstrated narrowing. Right posterior tibial artery: No demonstrated narrowing. Right peroneal artery: No demonstrated narrowing. LEFT LOWER EXTREMITY Left common femoral artery: No demonstrated narrowing. Left profundus femoris: No demonstrated narrowing. Left superficial femoral: Mild stenosis distally. Left popliteal artery: Mild stenosis. Left tibioperoneal trunk: No demonstrated narrowing. Left anterior tibial artery: No demonstrated narrowing. Left posterior tibial artery: There is mild diffuse narrowing, with visualization of the vessel to the distal calf. Left peroneal artery: No demonstrated narrowing. CT/CTA Abd w/Runoff W/WO Contrast IMPRESSION: Occluded stent in the right superficial femoral artery with reconstitution of the right popliteal artery via collateral branches from the right deep femoral artery. Mild stenosis in the right popliteal artery. Additional findings, as above. Electronically Signed: Leonard Monzon, at 15:29 EDT Tel , Service support ,
[2019-01-26 07:53] LABS: Hematocrit 44.1 % (40-54); Hemoglobin 15.2 g/dl (13.0-16.5); Mean Corp Hgb Conc 34.5 g/gl (32-36); Mean Corpuscular Hgb 31.9 pg (27.0-32.0); Mean Corpuscular Volume 92.5 fL (80-94); Mean Platelet Vol. 9.4 fl (6.2-12.0); Platelet Count 294 K/mm3 (150-450); RBC Distribution Width CV 13.1 % (11.6-14.6); RBC Distribution Width SD 44.3 fl (35.1-43.9); Red Blood Count 4.77 M/mm3 (4.6-6.2)
[2019-01-26 07:55] LABS: Scan Indicated on CBC? Y/N NO
--- NOTE | 2019-01-26 08:03 | VDLE_ITS ---
Reason For Study: pre-op testing RIGHT LEFT GSV is normal. GSV is normal. GSV prox thigh .36 x .41 cm. GSV prox thigh .31 x .32 cm. GSV mid thigh .16 x .15 cm. GSV mid thigh .26 x .28 cm. GSV dist thigh .19 x .22 cm GSV dist thigh .20 x .22 cm GSV below knee prox .19 x .2 cm. GSV below knee prox .18 x .21 cm. GSV below knee mid .22 x .23 cm. GSV below knee mid .18 x .21 cm. GSV below knee distal .24 x .29 cm. GSV below knee distal .27 x .30 cm. SSV is normal. SSV is normal. SSV prox .23 x .23 cm. SSV prox .16 x .18 cm. SSV mid .24 x .25 cm. SSV mid .25 x .27 cm. SSV dist .21 x .24 cm. SSV dist .18 x .21 cm. Procedure Exam performed in department. The exam was diagnostic. Interpretation Summary Patent and compressible bilateral great and small saphenous veins with dimensions as noted Ordering Physician: Mark Machado Performed By: Ugo Appiah RVT
[2019-01-26 08:20] LABS: AST(SGOT) 15 U/L (15-37); Alanine Aminotransfer ALT/SGPT 22 U/L (16-61); Alkaline Phosphatase 92 U/L (45-117); Bilirubin, Direct 0.11 mg/dL (0.00-0.30); Cholesterol 122 mg/dL (200); High Density Lipoprotein 44 mg/dL; Triglycerides 66 mg/dL; Very Low Density Lipoprotein 13 mg/dL (5-40)
[2019-01-26 08:21] LABS: Anion Gap 9 (5-15); BUN 14 mg/dL (7-18); Calcium,Total 8.5 mg/dL (8.5-10.1); Chloride 105 mmol/L (98-107); Creatinine, Serum 0.87 mg/dL (0.70-1.30); EST Glomerular Filtration Rate 101 mL/min (>60); Est Glom Filt Rate - Afr Amer 122 mL/min (>60); Glucose 168 mg/dL (74-106); Potassium 4.1 mmol/L (3.5-5.1); Sodium Level 136 mmol/L (136-145)
== END | disposition home or self-care (01) ==
LOC: CT 07:33
PROVIDERS: Internal Medicine Cardiovascular Disease; Family Provider Student in an Organized Health Care Education/Training Program; PCP Student in an Organized Health Care Education/Training Program; Referring Provider Surgery; Visit Provider Surgery
DX: Z01.818 Encounter for other preprocedural examination (principal); E78.5 Hyperlipidemia, unspecified; I25.10 Atherosclerotic heart disease of native coronary artery without angina pectoris; I73.9 Peripheral vascular disease, unspecified
CPT/HCPCS: 36415; 75635; 80048; 80061; 80076; 85027; 93970; Q9967

== ENCOUNTER → 2019-01-27 | Outpatient (CLI) | payer OTHER, SELFPAY ==
[2019-01-20 11:40] VITALS: BMI 26.2
[2019-01-25 10:34] VITALS: BMI 27.5
--- NOTE | 2019-01-27 11:38 | STEWCON_ITS ---
Reason For Study: Pre-Op, CAD Stress Results Protocol: Dobutamine Stress Echo Maximum Predicted HR: 176 bpm Target HR: 150 bpm % Maximum Predicted HR: 85 % DurationHeart Rate Stage (mm:ss) (bpm) BP Comment Baseline 56 111/67No Chest Pain; Diluted Definity 5 ML Given DSE 10 MCG 4:00 54 113/59No Chest Pain DSE 20 MCG 3:00 91 124/56No Chest Pain DSE 30 MCG 3:00 113 158/83No Chest Pain DSE 40 MCG 6:03 150 147/79No Chest Pain; Atropine 1 MG IVP Recovery 90 112/69No Chest Pain Stress Duration: 16:03 mm:ss Maximum Stress HR: 150 bpm METS: 1 Baseline Echocardiogram Findings The estimated ejection fraction is 55 %. Stress Echo Wall motion Data Resting WM Intermediate WM Stress WM Resting Wall Motion Wall Motion Stress No regional wall motion No regional wall motion abnormalities noted. abnormalities noted. EKG Data The baseline ECG displays normal sinus rhythm. The patient was titrated from 10 mcg to a maximum of 40 mcg of dobutamine during the stress. The maximum heart rate attained was 150 beats per minute. This was 85% of maximum predicted heart rate. During dobutamine infusion, there were no ST or T wave changes noted to suggest ischemia. No clinical angina was noted. No arrhythmias noted. Interpretation Summary The estimated ejection fraction is 55 %. Normal, adequate, treadmill dobutamine echocardiogram. Negative for ischemia by EKG and echocardiographic anterior. No anginal symptoms noted. No arrhythmias noted. Appropriate blood pressure response to dobutamine. Final LVEF is 75%. Test was terminated due to the attainment target heart rate. Decreased sensitivity due to poor echo windows requiring Definity agent. No complications. The study was technically difficult. Contrast injection was performed. Ordering Physician: Juan Mike Referring Physician: Srinath Samuels Performed By: Marty Li RCS
== END | disposition home or self-care (01) ==
LOC: CVS 11:37
PROVIDERS: Family Provider Student in an Organized Health Care Education/Training Program; PCP Student in an Organized Health Care Education/Training Program; Referring Provider Internal Medicine Cardiovascular Disease; Visit Provider Internal Medicine Cardiovascular Disease
DX: Z01.810 Encounter for preprocedural cardiovascular examination (principal); I25.10 Atherosclerotic heart disease of native coronary artery without angina pectoris; E78.5 Hyperlipidemia, unspecified; Z95.5 Presence of coronary angioplasty implant and graft
CPT/HCPCS: 93017; 93350; J7040; Q9957; A4216; C8928

== ENCOUNTER → 2019-02-07 | Outpatient (CLI) | payer OTHER, SELFPAY ==
[2019-01-20 11:40] VITALS: BMI 26.2
[2019-01-30 14:15] VITALS: BMI 26.2
--- NOTE | 2019-02-07 12:51 | ECHOD_ITS ---
Reason For Study: CV Pre operative exam Procedure This was a 2D Doppler, Color Flow transthoracic echocardiogram. Exam performed in department. Left Ventricle Normal size and thickness. The estimated ejection fraction is 65 %. Normal diastology for age. No regional wall motion abnormalities noted. Right Ventricle Normal size and thickness. Normal systolic function. Atria Normal left atrium. Normal right atrium. Normal atrial septum. Mitral Valve The mitral valve is structurally normal. No prolapse or stenosis seen. Trivial mitral valve insufficiency. Tricuspid Valve Normal tricuspid valve. Trivial tricuspid valve insufficiency. Right ventricular systolic pressure estimated to be 33 mmHg. Aortic Valve Normal aortic valve. Trisinus/trileaflet aortic valve. Pulmonic Valve Normal pulmonic valve. Great Vessels Normal aortic root. Normal arch. Normal inferior vena cava. Inferior vena cava collapse with sniff. Pericardium/Pleural No pericardial effusion. MMode/2D Measurements & Calculations LVIDd: 4.7 cm IVSd: 0.99 cm Ao root diam: 3.5 cm LVIDs: 3.1 cm LVPWd: 0.99 cm RVDd: 3.3 cm FS: 34.3 % LAV(MOD-bp): 36.5 ml LA A4 area: 13.1 cm2 LA dimension(2D): 3.3 cm LAV(MOD-bp) Indexed: 18.2 ml/m2 LAV(MOD-sp2): 41.7 ml LAV(MOD-sp4): 31.3 ml RA A4 area: 14.7 cm2 Time Measurements MV dec time: 0.23 sec Doppler Measurements & Calculations MV E max kenan: 110.1 cm/sec Lat Peak E' Kenan: 11.7 cm/sec Med Peak E' Kenan: 10.6 cm/sec MV A max kenan: 81.4 cm/sec E/E' lat: 9.4 E/E' med: 10.4 MV E/A: 1.4 Ao V2 max: 103.1 cm/sec LV V1 max: 89.4 cm/sec PA V2 max: 87.7 cm/sec Ao max P.3 mmHg LV V1 max P.2 mmHg TR max kenan: 265.3 cm/sec TR max P.2 mmHg Interpretation Summary The estimated ejection fraction is 65 %. Normal diastology for age. Trivial mitral valve insufficiency. Trivial tricuspid valve insufficiency. Right ventricular systolic pressure estimated to be 33 mmHg. Compared to echo report dated 01/24/2014, LV function and wall motion abnormalities have normalized. Ordering Physician: Juan Mike Referring Physician: Srinath Guevara Performed By: Janet Sofia RDCS, RVT
== END | disposition home or self-care (01) ==
LOC: CVS 12:50
PROVIDERS: Family Provider Student in an Organized Health Care Education/Training Program; PCP Student in an Organized Health Care Education/Training Program; Referring Provider Internal Medicine Cardiovascular Disease; Visit Provider Internal Medicine Cardiovascular Disease
DX: Z01.810 Encounter for preprocedural cardiovascular examination (principal); I25.10 Atherosclerotic heart disease of native coronary artery without angina pectoris; E78.5 Hyperlipidemia, unspecified; Z95.5 Presence of coronary angioplasty implant and graft
CPT/HCPCS: 93306

== ENCOUNTER 2019-02-14 05:20 | Inpatient (IN) | payer OTHER, SELFPAY ==
--- NOTE | 2019-01-20 12:01 | HP_ITS ---
HPI HPI Surgical H&P: Yes Details: Chief Complaint: Coronary artery disease status post CABG, est. of care, former Suresh pt. Details: FRANCISCO ESCMAILLA, is a 43 M who presents to the office today for follow up of cardiac care. Pt has a history of hypertension, hypercholesterolemia, coronary artery disease status post angioplasty and stenting of OM#1 in 2011 at [facility] in [place]. The patient re-presented to [facility] on 01/24/14 was seen by my colleague Dr. Pedersen. At that time he returned with chest pain, and underwent a left heart catheterization at that time. He was found to have a widely patent stent in his obtuse marginal, nonobstructive disease of his LAD and left circumflex, and a subtotal occlusion of his RCA. He was then transferred to [facility] where I performed an angioplasty x2 to the right coronary artery. At that time he received a 3.0x16 Promus in the distal RCA just proximal to the right PDA, as well as a 3.5 x-28 Promus stent in the mid RCA postdilated to 4.0 mm. Subsequent to that the patient was following up with Dr. Medrano, and in June 2018 was found to have life limiting claudication of his right lower extremity. He was seen by Dr. Machado at [facility] underwent a right lower extremity angiogram which showed a occlusion of his right superficial femoral artery. He underwent successful angioplasty and stenting x2 of his right lower extremity. Patient claudication symptoms have now returned again, and requires below the knee femoropopliteal bypass with a vein with Dr. Machado in the upcoming future. Patient is unable to walk on a trip From a cardiac standpoint he denies any chest pain, angina, shortness of breath or dyspnea on exertion. He has successfully reduced his smoking from 2 packs of cigarettes a day to less than 3-4 cigarettes/day. He is here with his who is also my patient. In our office his blood pressure is 110/70, pulse is 6 and regular. Physical exam demonstrates regular rate and rhythm, normal S1/S2, no S3 or S4. His lipids as of 04/12/18 show an LDL of 101 and HDL 34. Repeat lipids are pending. EKG dated 11/23 2018 shows normal sinus rhythm, normal axis, normal intervals, no evidence of previous myocardial infarction. Intake Vital Signs 01/20/19 Height 5 ft 10 in 01/20/19 Weight: 183 lb 01/20/19 Body Mass Index (BMI) 26.2 01/20/19 Blood Pressure 110/70 01/20/19 Blood Pressure Location Lt brachial 01/20/19 Blood Pressure Position Sitting 01/20/19 Respiratory Rate 20 H 01/20/19 Pulse Rate 60 01/20/19 Pulse Source Auscultation Intake Visit Reasons: R CEBUL SURG CLEAR. 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: No Accompanied by: Is patient in pain?: No Allergies sertraline Allergy (Severe, Verified 01/19/19 17:15) Rash Penicillins Allergy (Verified 01/19/19 17:15) Unknown beta fadi Adverse Reaction (Severe, Uncoded 01/19/19 08:34) bradycardia Medications Glimepiride [Amaryl] 4 mg PO BID 01/23/14 [History Confirmed 01/20/19] Lisinopril [Zestril] 5 mg PO DAILY 11/26/16 [History Confirmed 01/20/19] clopidogrel 75 mg tablet 75 mg PO DAILY 04/11/18 [History Confirmed 01/20/19] aspirin 81 mg tablet,delayed release 81 mg PO DAILY 07/11/18 [History Confirmed 01/20/19] metformin 500 mg tablet 1,000 mg PO BIDCM tab 07/11/18 [History Confirmed 01/20/19] nitroglycerin 0.4 mg sublingual tablet 0.4 mg SUBLINGUAL Q5-15M PRN 07/11/18 [History Confirmed 01/20/19] rosuvastatin 10 mg tablet 10 mg PO DAILY #30 tab 07/12/18 [Rx Confirmed 01/20/19] [facility] Medical History Hyperlipidemia (Chronic) Essential hypertension (Chronic) Acute RI, anterolateral wall (Acute 2011) Atherosclerotic heart disease of [place] coronary artery without angina pectoris (Chronic) Type 2 diabetes mellitus (Chronic) Diabetes (Chronic) Femoral artery occlusion, right (Acute) Pain of right calf (Acute) Chronic back pain (Chronic) Chronic back pain (Inactive) Coronary artery disease (Inactive) Diabetes mellitus type II (Inactive) Heart disease (Inactive) Surgical History Presence of coronary angioplasty implant and graft (Chronic) Femoral artery occlusion, left (Acute) History of heart artery stent (Inactive) Family History Father CAD (coronary artery disease) Myocardial infarction, Onset Age: 45 CVA (cerebral vascular accident) Uncle Myocardial infarction, Onset Age: 40 Other Diabetes Heart disease Social History Smoking Status: Current every day smoker second hand exposure: Yes alcohol intake: never substance use type: does not use caffeine: Yes what type of physical activity do you participate in: none frequency: does not exercise seatbelt use: always ROS Const Const: Positive for other (here for pre-op eval for right fem pop per R. Cebul); negative for fatigue, weakness, body ache, fever(s), headache(s), chills, frequent falls, night sweats, daytime sleepiness, difficulty sleeping, excessive sweating, weight gain, weight loss, increased appetite, poor appetite or anorexia Eyes Eyes: Negative for blind spots, loss of peripheral vision, transient loss of vision, blurry vision, change in vision, double vision, floaters, tunnel vision or other ENT ENT: Negative for headache(s), dizziness, hearing loss, tinnitus, Nosebleed/epistaxis, balance problems, post nasal drip, lip swelling, tongue swelling, bleeding gums, hoarseness, neck pain, dry mouth or other Cardio Chest Pain: No Palpitations: Yes (Once in awhile skipped beat) Edema: None Muscle aches with walking: None Resp Respiratory: Negative for SOB with activity, SOB at rest, SOB orthopnea\SOB lying down, Cough, Coughing up blood/hemoptysis, chest congestion, pain on inspiration, snoring, stridor, wheezing, crackles, paroxysmal nocturnal dyspnea or other GI GI: Negative nausea, vomiting, heartburn, constipation, belching, bloating, cramping, vomiting blood/hematemesis, bright, red blood in stools, black,tarry stools, loose stools, Difficulty Swallowing or other : Negative for hematuria, frequent nighttime urination/ nocturia, erectile dysfunction or abnormal vaginal bleeding Musc Musc: Negative for muscle aches/ myalgia, muscle weakness, joint pain or balance problems Skin Skin: Negative redness, non-healing lesions, rash, unusual bruising, skin ulcer, wounds, jaundice or other Neuro Neuro: Negative for dizziness, lightheadedness, near syncope, syncope, orthostatic symptoms, frequent falls, headache(s), weakness, confusion, memory loss, restless legs, blurry vision, double vision, vertigo, seizures, lack of coordination or other Mauro Hematologic/Lymphatic: Negative for easy bleeding, easy bruising, enlarged lymph nodes or other Endo Endo: Negative for fatigue, cold intolerance, heat intolerance, excessive sweating, flushing, increased thirst/drinking, increased hunger, hair loss, hair growth or other Psych Psych: Negative for anxiety, depression, thoughts of harming anyone, thoughts of harming yourself, visual hallucinations, panic attacks or audible hallucinations Allergy Allergy/Immunology: Negative for throat swelling, Negative for tongue swelling, Negative for hives, Negative for rash, Negative for lip swelling Cardiology Exam Const Appearance: cooperative, healthy appearing and no acute distress Nutritional Appearance: well nourished Orientation: alert, oriented x3 and oriented to person Head Head: normal to inspection, normocephalic and atraumatic Nose: external nose normal Face and Sinus: face symmetric Mouth: oral mucosae normal Eyes General: appearance normal, both eyes and all related structures Eyelids: eyelids normal Conjunctivae: conjunctivae normal Pupils: PERRL and normal by confrontation EOM: EOM intact bilaterally Neck Neck: normal visual inspection and full ROM Carotids: normal carotid upstroke Chest Chest inspection: normal inspection of the chest Auscultation: Bilateral: Clear to Auscultation Cardio Palpation: normal PMI Rate: regular rate Rhythm: regular rhythm Heart sounds: S1 normal and S2 normal GI GI: normal to inspection, no hepatosplenomegaly and bowel sounds present Neuro General: alert, awake, oriented x3, CN's II-XI intact bilaterally and moves all extremities Skin Skin: no rashes or lesions noted Extremities Pulses: Normal: Right Femoral Pulse, Left Femoral Pulse, Right Dorsalis Pedis Pulse, Left Dorsalis Pedis Pulse, Right Posterior Tibial Pulse, Left Posterior Tibial Pulse, Right Radial Pulse, Left Radial Pulse Lower Extremity Edema: None: Bilateral Psych Psychological: normal affect Assessment & Plan 1. Atherosclerotic heart disease of [place] coronary artery without angina pectoris I25.10 Emergent angioplasty and BMS to OM 2011; PTCA/TROY of the RCA and PDA using promus 01/24/14 Plan 1. Coronary artery disease: Patient is asymptomatic from a cardiac standpoint although he has limited mobility due to his right lower extremity claudication symptoms with require femoropopliteal bypass surgery in the near future. As part of his cardiac risk stratification, I recommended he undergo a dobutamine echocardiogram as well as a 2D echo with Doppler. If either 1 of these are grossly abnormal, the patient may require a diagnostic coronary angiogram via the left groin or via the right radial approach. If however his stress test are negative, he will be deemed at low risk for noncardiac surgery. In the meantime he will continue his baby aspirin, Plavix, lisinopril. He may stop his Plavix assuming his stress test is -5 days prior to his surgery if this is requested by Dr. Porter. If he has no problem doing surgery on dual and platelet therapy I would recommend that he continue on dual antiplatelet therapy through the surgery. If his Plavix is stopped, I will defer to Dr. Porter with the timing of restarting it. Orders Orders: Lipid Profile Today Liver Profile Today Echo Complete Today Stress Test Echo W/Contrast Today 2. Hyperlipidemia E78.5 Plan 2. Hyperlipidemia: We are awaiting a repeat lipid profile. Continue Crestor. 3. Tobacco cessation: I had a long and thorough discussion with the patient and his significant other regarding tobacco cessation, and have strongly encouraged him to discontinue all tobacco products. 4. Return to office in months. This note was generated using a voice recognition system and there may be incorrect words, spelling or punctuation that were not noted when reviewing the office note prior to saving. Orders Orders: Lipid Profile Today Liver Profile Today Echo Complete Today Stress Test Echo W/Contrast Today Plan Detail Other Orders Orders: Echo Complete Today Z01.810, Z95.5 Stress Test Echo W/Contrast Today Z01.810, Z95.5 Follow Up +6M (Mike) Coding Level of Care Code Off vis,est,level 3 Diagnoses Atherosclerotic heart disease of [place] coronary artery without angina pectoris I25.10 Hyperlipidemia E78.5 Coding Level of Care Code Off vis,est,level 3 Diagnoses Atherosclerotic heart disease of [place] coronary artery without angina pectoris I25.10 Hyperlipidemia E78.5 Supplemental Info Supplemental Information Diagnostics Electrocardiogram 11/23/18 Echocardiogram 01/24/14 Chest X-Ray 11/23/18 Venous Doppler Study 01/17/19 01/20/19 1201 <Electronically signed by Juan Mike MD> Date Juan Mike MD
[2019-01-30 14:15] VITALS: BMI 26.2
[2019-02-07 16:07] LABS: Hemoglobin A1c 8.2 % (4.2-6.3)
[2019-02-14] VITALS (12 sets, daily range): BP systolic 84–111; BP diastolic 51–70; PULSE 58–72; RESP 14–16; TEMP 36.2–36.7; O2SAT 92–98; BMI 25.9
[2019-02-14 06:11] LABS: Bedside Glucose 169 mg/dL (70-110)
--- NOTE | 2019-02-14 06:13 | HP.PCM_ITS ---
Problem List (1) Femoral artery occlusion, right Status: Acute History and Physical Date of Admission: 02/14/19 Intake Vital Signs 01/30/19 Height 5 ft 10 in 01/30/19 Weight: 183 lb 01/30/19 Body Mass Index (BMI) 26.2 01/30/19 Blood Pressure 116/73 01/30/19 Blood Pressure Location Rt brachial 01/30/19 Blood Pressure Position Sitting 01/30/19 Respiratory Rate 14 01/30/19 Pulse Rate 61 01/30/19 Pulse Source Monitor 01/30/19 Temperature 98.6 F 01/30/19 Temperature Source Oral 01/30/19 Pulse Ox 99 01/30/19 Oxygen Delivery Method room air 01/30/19 Body Mass Index (BMI) 27.5 Intake Visit Reasons: Discuss Test results/ Surgery Chief Complaint: Coronary artery disease status post CABG, est. of care, former [place] pt. Facial Operator Required: No Is patient in pain?: Yes (Right calf) Pain scale (1-10): 4 Allergies sertraline Allergy (Severe, Verified 01/30/19 14:16) Rash Penicillins Allergy (Verified 01/30/19 14:16) Unknown beta fadi Adverse Reaction (Severe, Uncoded 01/30/19 14:16) bradycardia Medications Glimepiride [Amaryl] 4 mg PO BID 01/23/14 [History Confirmed 01/30/19] Lisinopril [Zestril] 5 mg PO DAILY 11/26/16 [History Confirmed 01/30/19] clopidogrel 75 mg tablet 75 mg PO DAILY 04/11/18 [History Confirmed 01/30/19] aspirin 81 mg tablet,delayed release 81 mg PO DAILY 07/11/18 [History Confirmed 01/30/19] metformin 500 mg tablet 1,000 mg PO BIDCM tab 07/11/18 [History Confirmed 01/30/19] nitroglycerin 0.4 mg sublingual tablet 0.4 mg SUBLINGUAL Q5-15M PRN 07/11/18 [History Confirmed 01/30/19] rosuvastatin 10 mg tablet 10 mg PO DAILY #30 tab 07/12/18 [Rx Confirmed 01/30/19] PFSH Medical History Hyperlipidemia (Chronic) Essential hypertension (Chronic) Acute ND, anterolateral wall (Acute 2011) Atherosclerotic heart disease of [place] coronary artery without angina pectoris (Chronic) Type 2 diabetes mellitus (Chronic) Diabetes (Chronic) Femoral artery occlusion, right (Acute) Pain of right calf (Acute) Chronic back pain (Chronic) Chronic back pain (Inactive) Coronary artery disease (Inactive) Diabetes mellitus type II (Inactive) Heart disease (Inactive) Surgical History Presence of coronary angioplasty implant and graft (Chronic) Femoral artery occlusion, left (Acute) History of heart artery stent (Inactive) Family History Father CAD (coronary artery disease) Myocardial infarction, Onset Age: 45 CVA (cerebral vascular accident) Uncle Myocardial infarction, Onset Age: 40 Other Diabetes Heart disease Social History Smoking Status: Current every day smoker second hand exposure: Yes alcohol intake: never substance use type: does not use caffeine: Yes what type of physical activity do you participate in: none frequency: does not exercise seatbelt use: always HPI HPI HPI: FRANCISCO ESCAMILLA, is a 43 M who presents to the office today for HPI HPI Surgical H&P: Yes HPI: FRANCISCO ESCAMILLA, is a 43 M who presents to the office today for who returns for ongoing surgical consultation regarding right lower extremity vascular claudication. Most recent visit he has had a CTA of the abdomen with runoff Abdomen/Pelvis CTA [facility] Imaging Services [address] [place] [id number] CTA Abd w/Runoff W/WO Contrast MR#: [id number] Name: FRANCISCO ESCAMILLA [facility] #:[id number] : 1975M 43 From: Leonard Monzon MD PCP:Srinath Guevara, DO Status:REG CLI Study:CTA Abd w/Runoff W/WO Contrast Date of Exam:01/26/19 Exam#[id number] Ordering Dr: Mark Machado MD STUDY: CTA OF THE ABDOMINAL AORTA AND BILATERAL LOWER EXTREMITIES REASON FOR EXAM: Male, 43 years old. Occluded stent RADIATION DOSAGE (If Supplied By Facility): CTDIvol = ( 12.65 ) mGy, DLP = ( 1376.40 ) mGycm TECHNIQUE: Axial CT angiography multi-detector data acquisition was obtained from the diaphragm to the feet following intravenous administration of 100 IV Isovue 370. Axial images and MIP images were reconstructed from the axial data set. Post-processing of the angiographic images was performed, with multiplanar reformation and 3D reconstruction. Individualized dose optimization techniques were used for this CT. TECHNICAL QUALITY: Good COMPARISON: None. Descriptors of Narrowing: None (0%) Mild (< 50%) Moderate (50-70%) Severe (70-90%) Subtotal/Total Occlusion (90-100%) Non-Evaluable (technically non-diagnostic FINDINGS: The lung bases are clear. The visualized portions of the heart and pericardium are within normal limits. There are no calcified gallstones present. The liver, spleen, pancreas, adrenal glands and kidneys are within normal limits. There is no bowel obstruction or inflammation. The appendix is normal. There is no abdominal or pelvic free air, free fluid or lymphadenopathy. VESSELS: Abdominal aorta: No demonstrated narrowing. Celiac and superior mesenteric arteries: No demonstrated narrowing. Inferior mesenteric artery: No demonstrated narrowing. Right renal artery(arteries): No demonstrated narrowing. Left renal artery(arteries): No demonstrated narrowing. Right common iliac artery: No demonstrated narrowing. Right external iliac artery: No demonstrated narrowing. Right internal iliac artery: There is mild diffuse narrowing. Left common iliac artery: No demonstrated narrowing. Left external iliac artery: No demonstrated narrowing. Left internal iliac artery: There is mild diffuse narrowing. RIGHT LOWER EXTREMITY Right common femoral artery: No demonstrated narrowing. Right profundus femoris: No demonstrated narrowing. Right superficial femoral: Occluded stent Right popliteal artery: Mild stenosis. Right tibioperoneal trunk: No demonstrated narrowing. Right anterior tibial artery: No demonstrated narrowing. Right posterior tibial artery: No demonstrated narrowing. Right peroneal artery: No demonstrated narrowing. LEFT LOWER EXTREMITY Left common femoral artery: No demonstrated narrowing. Left profundus femoris: No demonstrated narrowing. Left superficial femoral: Mild stenosis distally. Left popliteal artery: Mild stenosis. Left tibioperoneal trunk: No demonstrated narrowing. Left anterior tibial artery: No demonstrated narrowing. Left posterior tibial artery: There is mild diffuse narrowing, with visualization of the vessel to the distal calf. Left peroneal artery: No demonstrated narrowing. CT/CTA Abd w/Runoff W/WO Contrast IMPRESSION: Occluded stent in the right superficial femoral artery with reconstitution of the right popliteal artery via collateral branches from the right deep femoral artery. Mild stenosis in the right popliteal artery. Additional findings, as above. Electronically Signed: Leonard Monzon, at 15:29 EDT Tel , Service support , [facility] [address] [place] [address] Saphenous Vein Mapping, Bilat 01/26/19 08 MR#: [id number] Name: FRANCISCO ESCAMILLA [facility] #:[id number] : 1975 43From: Mark Machado MD Attending Dr: Carter DOZIER,Stephenie: REG CLI Ordering Dr: Mark Machado MDDate: 01/26/19 [facility]: Reason For Study: pre-op testing RIGHT LEFT GSV is normal. GSV is normal. GSV prox thigh .36 x .41 cm. GSV prox thigh .31 x .32 cm. GSV mid thigh .16 x .15 cm. GSV mid thigh .26 x .28 cm. GSV dist thigh .19 x .22 cm GSV dist thigh .20 x .22 cm GSV below knee prox .19 x .2 cm. GSV below knee prox .18 x .21 cm. GSV below knee mid .22 x .23 cm. GSV below knee mid .18 x .21 cm. GSV below knee distal .24 x .29 cm. GSV below knee distal .27 x .30 cm. SSV is normal. SSV is normal. SSV prox .23 x .23 cm. SSV prox .16 x .18 cm. SSV mid .24 x .25 cm. SSV mid .25 x .27 cm. SSV dist .21 x .24 cm. SSV dist .18 x .21 cm. Procedure Exam performed in department. The exam was diagnostic. Interpretation Summary Patent and compressible bilateral great and small saphenous veins with dimensions as noted Ordering Physician: Mark Machado Performed By: Ugo Appiah RVT 01/26/19 1730 Date Mark Machado MD [facility] [address] [place] [address] Stress Test Echo W/Contrast MR#: [id number] Name: FRANCISCO ESCAMILLA [facility] #:[id number] : 1975 43From: Juan Mike MD Primary Care: Srinath Guevara, DOStatus: REG CLI Ordering Dr: Juan Mike MDSex: Reason For Study: Pre-Op, CAD Stress Results Protocol: Dobutamine Stress Echo Maximum Predicted HR: 176 bpm Target HR: 150 bpm % Maximum Predicted HR: 85 % DurationHeart Rate Stage (mm:ss) (bpm) BP Comment Baseline 56 111/67No Chest Pain; Diluted Definity 5 ML Given DSE 10 MCG 4:00 54 113/59No Chest Pain DSE 20 MCG 3:00 91 124/56No Chest Pain DSE 30 MCG 3:00 113 158/83No Chest Pain DSE 40 MCG 6:03 150 147/79No Chest Pain; Atropine 1 MG IVP Recovery 90 112/69No Chest Pain Stress Duration: 16:03 mm:ss Maximum Stress HR: 150 bpm METS: 1 Baseline Echocardiogram Findings The estimated ejection fraction is 55 %. Stress Echo Wall motion Data Resting WM Intermediate WM Stress WM Resting Wall Motion Wall Motion Stress No regional wall motion No regional wall motion abnormalities noted. abnormalities noted. EKG Data The baseline ECG displays normal sinus rhythm. The patient was titrated from 10 mcg to a maximum of 40 mcg of dobutamine during the stress. The maximum heart rate attained was 150 beats per minute. This was 85% of maximum predicted heart rate. During dobutamine infusion, there were no ST or T wave changes noted to suggest ischemia. No clinical angina was noted. No arrhythmias noted. Interpretation Summary The estimated ejection fraction is 55 %. Normal, adequate, treadmill dobutamine echocardiogram. Negative for ischemia by EKG and echocardiographic anterior. No anginal symptoms noted. No arrhythmias noted. Appropriate blood pressure response to dobutamine. Final LVEF is 75%. Test was terminated due to the attainment target heart rate. Decreased sensitivity due to poor echo windows requiring Definity agent. No complications. The study was technically difficult. Contrast injection was performed. Ordering Physician: Juan Mike Referring Physician: Srinath Samuels Performed By: Marty Li RCS 01/27/19 1419 Date Juan Mike MD CC: Juan Mike MD; DO Chuck Mcnamara Date Dictated:01/27/19 1220 Date Transcribed: 01/27/191418 Telephone Recorder: Previous office notes reflect the following as well: MR#:[id number] Name: FRANCISCO ESCAMILLA [facility] #:[id number] : 1975 Provider:Mark Machado MD Age/Sex: 43/M Location:[facility] Status:Signed Intake Vital Signs 01/19/19 Body Mass Index (BMI) 27.6 01/19/19 Height 5 ft 10 in 01/19/19 Weight: 193 lb 01/19/19 Body Mass Index (BMI) 27.6 01/19/19 Blood Pressure 122/78 H 01/19/19 Blood Pressure Location Rt brachial 01/19/19 Blood Pressure Position Sitting 01/19/19 Respiratory Rate 14 01/19/19 Pulse Rate 57 L 01/19/19 Pulse Source Monitor 01/19/19 Temperature 98.3 F 01/19/19 Temperature Source Oral 01/19/19 Pulse Ox 98 01/19/19 Oxygen Delivery Method room air Intake Visit Reasons: ER F/U [facility] 01/17 R Lower Extremity Pain X 2 Days Chief Complaint: Coronary artery disease status post CABG, est. of care, former [place] pt. Facial Operator Required: No Is patient in pain?: Yes (Right leg) Pain scale (1-10): 4 Allergies sertraline Allergy (Severe, Verified 01/19/19 08:34) Rash Penicillins Allergy (Verified 01/19/19 08:34) Unknown beta fadi Adverse Reaction (Severe, Uncoded 01/19/19 08:34) bradycardia Medications Glimepiride [Amaryl] 4 mg PO BID 01/23/14 [History Confirmed 01/19/19] Lisinopril [Zestril] 5 mg PO DAILY 11/26/16 [History Confirmed 01/19/19] clopidogrel 75 mg tablet 75 mg PO DAILY 04/11/18 [History Confirmed 01/19/19] aspirin 81 mg tablet,delayed release 81 mg PO DAILY 07/11/18 [History Confirmed 01/19/19] metformin 500 mg tablet 1,000 mg PO BIDCM tab 07/11/18 [History Confirmed 01/19/19] nitroglycerin 0.4 mg sublingual tablet 0.4 mg SUBLINGUAL Q5-15M PRN 07/11/18 [History Confirmed 01/19/19] rosuvastatin 10 mg tablet 10 mg PO DAILY #30 tab 07/12/18 [Rx Confirmed 01/19/19] Nurse's Note: Patient stated his pain goes up to a 9 when walking normal. The patient stated when he sits down and relaxes the pain goes down to a 4. PFSH Medical History Essential hypertension (Chronic) Hyperlipemia (Chronic) Acute ND, anterolateral wall (Acute) Atherosclerotic heart disease of [place] coronary artery without angina pectoris (Chronic) Type 2 diabetes mellitus (Chronic) Femoral artery occlusion, right (Acute) Pain of right calf (Acute) Diabetes (Acute) Chronic back pain (Chronic) Chronic back pain (Inactive) Coronary artery disease (Inactive) Diabetes mellitus type II (Inactive) Heart disease (Inactive) Surgical History Presence of coronary angioplasty implant and graft (Chronic) Femoral artery occlusion, left (Acute) History of heart artery stent (Inactive) Family History Father CAD (coronary artery disease) Myocardial infarction, Onset Age: 45 CVA (cerebral vascular accident) Uncle Myocardial infarction, Onset Age: 40 Other Diabetes Heart disease Social History Smoking Status: Current every day smoker second hand exposure: Yes alcohol intake: never substance use type: does not use caffeine: Yes what type of physical activity do you participate in: none frequency: does not exercise seatbelt use: always HPI HPI HPI: FRANCISCO ESCAMILLA, is a 43 M who presents to the office today for HPI HPI Surgical H&P: Yes HPI: FRANCISCO ESCAMILLA, is a 43 M who presents to the office today for urgent surgical evaluation regarding an acutely changed right lower extremity with coolness and intermittent numbness of the foot and toes and recurrence of calf claudication. The patient was seen in the [facility] emergency room on January 17, 2019 with a couple day onset of acute change in his right lower extremity with inability to walk without calf claudication. It is of note that on June 30, 2018 I performed a abdominopelvic right lower extremity arteriogram. The right superficial femoral artery was occluded from its origin down close to Clark's canal. I performed a directional atherectomy with angioplasty and subsequent stent grafting. Soon 2 separate stents were placed. Proximally a Vi[place]ahn6 x 250mm and [place] 6 x 100mm distally was placed. It is of note that on July 27, 2018 he had PVRs with exercise. The patient had completely normal right lower extremity indices and normal exercise response. 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 He is on chronic clopidogrel therapy because of coronary stents. He is a long-term cigarette smoker up to a maximum of 4 packs/day. At age 38 he had a myocardial infarction. He states that he is able to sleep in a bed currently. Prior to his right lower extremity endovascular intervention on May 26, 2018 his right PT and DP ABIs were 0.480.57 respectively with a digital index of only 0.23. He has an upcoming cardiology appointment with Dr. Juan Mike ROS General General: Yes weight change and fatigue; no appetite, colon cancer, breast cancer or weakness HEENT HEENT: No difficulty swallowing, eye injury, eye surgery, swollen glands or hoarseness Endo Endocrine: Yes diabetes mellitus; no thyroid disease, thyroid cancer, Hair loss, heat intolerance or cold intolerance Skin Skin: No rash or changing moles Musc Musculoskeletal: No back problems, arthritis, rheumatoid arthritis, gout or joint pain Cardio Cardiovascular: Yes heart disease, high blood pressure, heart attack and heart stent; no murmur, pacemaker, atrial fibrillation, palpitations, shortness of breat with exertion or chest pain Psych Psychiatric: Yes depression and anxiety; no hearing voices Resp Respiratory: No shortness of breath, No sleep apnea, No cough, No COPD, No asthma, No emphysema, No wheezing Gastro Gastrointestinal: No abdominal pain, No nausea or vomiting, No diarrhea, No constipation, No blood in stool, No acid reflux, Yes hemorrhoids, No ulcers, No gallbladder problem, No black,tarry stools Mauro Hematologic: Yes blood thinners, No blood disorders, No bleeding, No anemia, No blood clots Neuro Neurologic: No system reviewed and no additional complaints, except as docu, No as per HPI, No abnormal walking, No abnormal hearing, No abnormal movements, No abnormal speech, No behavioral changes, No burning sensations, No confusion, No seizure-like activity, No unsteadiness, No dizziness, No localized weakness, No frequent falls, No headache(s), No lack of coordination, No loss of vision, No memory loss, Yes numbness, No other visual disturbances, No radiating pain, No restless legs, No sensory deficit, No fainting, Yes tingling, No tremor(s), No weakness, No other Exam Const General: cooperative, comfortable Nutritional Appearance: average body habitus Orientation: alert, awake, oriented x3 Other: Patient appears much older than stated age [facility] Head: normal to inspection Chest Other: Increased anterior posterior diameter Resp Effort & Inspection: normal respiratory effort Auscultation: clear to auscultation bilaterally Cardio Rate: regular rate Rhythm: regular rhythm Heart Sounds: no murmurs Other: Bilateral radials are 2+. Bilateral brachials 3+. Bilateral carotids 3+. Do not demonstrate a carotid bruit. Bilateral femorals 3+. Right popliteal DP and PT are absent. Left popliteal 2+. Left DP and PT 2+ GI Palpation: soft, no hepatosplenomegaly Auscultation: normal bowel sounds Musc Cervical Spine: normal cervical lordosis Skin General: no rashes or lesions noted Neuro General: alert, awake Extrem Other: Dependent rubor noted of the right foot with hyperemic toes. Hair loss noted. Absence of pulses. No ulcerations. Foot has warmth to it. Left lower extremity demonstrates palpable pulses. Adequate capillary refill. Assessment & Plan Problems 1. Pain of right calf M79.661 2. Femoral artery occlusion, right I70.201 Plan Acute occlusion of right superficial femoral artery. This was a long area of stenting extending from the origin of the right superficial femoral artery all the way down past Clark's canal. Although he is symptomatic he does not have any acute critical emergency ischemia of the right foot. He clearly is symptomatic. I do not believe that an attempt at recannulation of his stents will offer therapeutic value. The angiographic imaging post intervention appear to be quite appropriate. The patient is already on clopidogrel therapy as well. I have again as multiple times previously vigorously encouraged him to cease his tobacco use. I recommend a CTA of the abdomen runoff. I have proposed for him consideration for a right femoral-popliteal bypass graft with reversed ipsilateral great saphenous vein and I have discussed technique, benefit, risks and alternatives We will also obtain great saphenous vein mapping. We will assist with expediting the patient's cardiology evaluation for clearance. The patient has had an opportunity to ask and have questions answered. Subsequent to the CTA and vein mapping we will have him return to my office for ongoing further discussion as to whether he wants to pursue this intervention. We would need to subsequently hold his clopidogrel prior to the femoral- popliteal bypass procedure I very much appreciate the ongoing opportunity of assisting with his surgical care CC: Dr. Srinath Machado, M.D., F.A.C.S. Coding ROS General General: Yes weight change and fatigue; no appetite, colon cancer, breast cancer or weakness HEENT HEENT: No difficulty swallowing, eye injury, eye surgery, swollen glands or hoarseness Endo Endocrine: Yes diabetes mellitus; no thyroid disease, thyroid cancer, Hair loss, heat intolerance or cold intolerance Skin Skin: No rash or changing moles Musc Musculoskeletal: No back problems, arthritis, rheumatoid arthritis, gout or joint pain Cardio Cardiovascular: Yes heart disease, high blood pressure, heart attack and heart stent; no murmur, pacemaker, atrial fibrillation, palpitations, shortness of breat with exertion or chest pain Psych Psychiatric: Yes depression and anxiety; no hearing voices Resp Respiratory: No shortness of breath, No sleep apnea, No cough, No COPD, No asthma, No emphysema, No wheezing Gastro Gastrointestinal: No abdominal pain, No nausea or vomiting, No diarrhea, No constipation, No blood in stool, No acid reflux, Yes hemorrhoids, No ulcers, No gallbladder problem, No black,tarry stools Mauro Hematologic: Yes blood thinners, No blood disorders, No bleeding, No anemia, No blood clots Neuro Neurologic: No weakness Exam Cardio Heart Sounds: no murmurs Assessment & Plan Problems 1. Femoral artery occlusion, right I70.201 Plan Today's appoint was a 30-minute [id number] consultative appointment. I utilized ultrasound to inspect his right great saphenous vein which I believe is patent and compressible and I actually believe that the diameter is better than what was seen on vein mapping. I also used ultrasound to inspect his right popliteal artery. I have carefully reviewed his previous arteriogram with placement of the stents and I have reviewed his CTA. I believe that his distal right SFA/popliteal refills above the knee. I have proposed for him a right above-knee reversed great saphenous vein femoral-popliteal bypass. In detail I discussed the technique, benefit, risk and alternatives. No guarantees of success have been offered. If the vein actually ends up being more diminutive than anticipated I proposed for him consideration of a right above-knee femoropopliteal bypass with PTFE. He has had an opportunity to ask and have questions answered and he is comfortable with that. It is of note that on my review of information it became apparent that he had presented to the emergency room on January 25, 2019. He did not forward this information to me. That ER visit was because of chest pain. I have strictly instructed him that we must obtain clear cardiology clearance prior to proceeding. The patient is very much aware of the increased intervention and risk of this procedure particularly in comparison to endovascular approach. I have instructed him he would need to be office of his clopidogrel for 5 days preop. He would remain on his aspirin therapy. We have contacted Dr. Mike's office. We will schedule the patient for future surgical intervention. The patient is aware that he must notify us of any medical changes prior to that. Once again I have vigorously encouraged the patient to cease his tobacco use. I appreciate the opportunity of assisting with surgical care CC: Dr. Srniath Samuels and Dr. Juan Machado M.D., F.A.C.S. Coding Level of Care Code Off vis,est,level 3 Diagnoses Femoral artery occlusion, right I70.201 01/30/19 1859 <Electronically signed by Mark Machado MD> Date Mark Machado MD Cosigner Signature: Date (if applicable) CC: Juan Mike MD; Srinath Guevara DO ~ I have re-examined the patient. There are no clinical changes since date of exam . Patient has been evaluated by Dr Mike and is prepared for surgery.
--- NOTE | 2019-02-14 07:29 | PCM.DC.GS ---
Discharge Diet: Light diet - advance as tolerated - if you have questions about your diet instructions, please talk to you doctor. Discharge Activity: May Not Drive - for 1 week or while taking narcotic pain medicine. May shower in (days): 3 Lifting Restrictions: 10 pounds Call your doctor if your incision/area has: Continuous Slow Oozing, Sudden Increased Bleeding, Increased Pain/ Swelling, Increased Redness, Foul Smelling Discharge Call your doctor if you observe: Fever of 101 or Higher Suture Line Care: Avoid Pulling/Pushing, Avoid Pinching/Bending Additional Dressing/Incision Instructions:: You may change your dry dressings daily. Leave the Steri-Strips in place for 1 week. Allergies/Adverse Reactions: Allergies sertraline Allergy (Severe, Verified 02/02/19 14:32) Rash Penicillins Allergy (Verified 02/02/19 14:32) Unknown beta fadi Adverse Reaction (Severe, Uncoded 01/30/19 14:16) bradycardia Medications to take at Discharge Glimepiride [Amaryl] 4 mg PO BID 01/23/14 Lisinopril [Zestril] 5 mg PO DAILY 11/26/16 clopidogrel 75 mg tablet 75 mg PO DAILY 04/11/18 aspirin 81 mg tablet,delayed release 81 mg PO DAILY 07/11/18 metformin 500 mg tablet 1,000 mg PO BIDCM tab 07/11/18 nitroglycerin 0.4 mg sublingual tablet 0.4 mg SUBLINGUAL Q5-15M PRN 07/11/18 Rosuvastatin Calcium 10 mg PO DAILY 02/02/19 Hydrocodone Bitart/Apap 5-325 [[place] 5MG-325MG] 1 tablet PO Q4H PRN PRN 3 Days #12 tablet 02/14/19 The following prescriptions were given: Hydrocodone Bitart/Apap 5-325 [[place] 5MG-325MG] 1 tablet PO Q4H PRN PRN 3 Days #12 tablet PRN Reason: Pain Primary Care Physician: Srinath Samuels DO [Primary Care Provider] - Test Results: Test results from this visit will be discussed in further detail at your follow-up appointment, if applicable. Please Follow Up With: Mark Machado MD - [phone] When: Call to make an appointment to be seen in about 10 days.
[2019-02-14] MEDS: Heparin Injection (Vial) 5,000 UNIT/ML VIAL 5000 UNIT (11:18)
[2019-02-14] MEDS: Bupivacaine Mpf 0.5% 30 ML VIAL (12:58)
--- NOTE | 2019-02-14 13:20 | OP.PCM_ITS ---
Problem List (1) Femoral artery occlusion, right Status: Acute Report of Operation Date of Procedure: 02/14/19 Pre-Operative Diagnosis: Symptomatic right lower extremity superficial femoral artery occlusion and vascular claudication Post-Operative Diagnosis: Same Surgery/Procedure Performed:: Right above-knee femoral-popliteal bypass with reversed ipsilateral great saphenous vein. On table right lower extremity arteriogram Description of Surgical Findings:: Timeout and informed consent was obtained. 43-year-old gentleman was taken the operating placement table underwent general anesthesia. Triana catheter was placed. Clindamycin 900 mg were given intravenously preoperatively. The right lower extremity groin sterilely prepped and draped. Ultrasound had been used to map the course of the right great saphenous vein. I made a longitudinal incision superior to the knee sharp blunt dissection was used to identify the great saphenous vein at that location side branches were secured with 4-0 Vicryl ligatures are hemoclips then I dissected deeply retracting the sartorius inferiorly. Was able to identify the suprageniculate superficial femoral artery was able to get circumferential control there was some Doppler signal in the vessel appeared to be soft so I felt that I was below the level of the previous stent. I then continue to make stepwise incisions further up the thigh as I continue to harvest the great saphenous vein all the way up to the groin. I then performed sharp blunt dissection at the groin to identify the common femoral artery superficial femoral artery and popliteal artery. Vesseloops were placed. I ligated the vein distally with hemoclips extracted the vein suturing it proximally at the femoral canal with a 3-0 Vicryl suture ligature I then ir rigated the vein couple side branches were secured with interrupted 4-0 Prolene. There was a good length of vein I marked it. I then placed a tunneler from the groin to the above-knee and carefully put the vein within the tunnel in a reverse fashion. Patient this point received 9000 units of heparin. Based upon ACT measurements during the case he received an additional 1000 units to a total of 10,000 units. The suprapubic the distal superficial femoral artery was secured with Greco clamp and peripheral vascular clamps 11 blade was used to make an arteriotomy which was extended with Castillo scissors. The vein was spatulated length. A end-to-side anastomosis created with a running 6-0 Prolene. A single repair suture of 7-0 Prolene was needed. There was good flow noted. I then laid the leg straight measured the vein to the length but peripheral vascular clamps in the profundofemoral superficial femoral and common femoral and made in arteriotomy with 11 blade and extended with Castillo scissors that ended up being just close to the previously placed stent in the SFA. I carefully spatulated the vein and made a end-to-side anastomosis again with a running 6-0 Prolene. There appeared to be good positional lie with no tension. I allowed for adequate inflow and backflow. The anastomosis was completed there was good flow noted. Appeared to have good pulsatile flow that would appear to be pink. I then placed a butterfly needle into the common femoral artery proximal and using Isovue contrast I took static views of the entire right lower extremity to the below-knee the area with the contrast began to fade. This demonstrated that the right femoral above-knee popliteal bypass with reversed ipsilateral great saphenous vein appeared to be widely patent. The vein appear ed to be a good flow. There was good flow into the popliteal and initiation of the tried furcation vessels but at that point the contrast began to fade. The patient then received 20 mg of protamine. Good hemostasis was intact. The needle was removed and a U suture of 6-0 Prolene was placed. The anastomoses were inspected appeared to be nicely intact the vein appeared to have a good positional lie. The wounds were closed in layers with deep layers of interrupted a running septic or 3-0 Vicryl. The skin edges approximated with a running septic or 4-0 Monocryl. The peggy-incisional area is anesthetized with 30 cc of 0.5% Marcaine. Skin prep Steri-Strip Telfa and loose fitting DASHAWN hose applied. Sponge and instrument and needle counts reported to surgically correct. Blood loss was 300 cc. He tolerated procedure well was taken to the recovery area in satisfactory condition without apparent complication. Specimens none. Drains none. Blood loss 300 cc. Mark Machado M.D., F.A.C.S. Type of Anesthesia:: General Anesthesiologist: Giana Jordan
[2019-02-14 13:40] LABS: ACT Activated Clotting Time 114 sec (74-137)
[2019-02-14 13:40] LABS: ACT Activated Clotting Time 224 sec (74-137)
[2019-02-14 13:40] LABS: ACT Activated Clotting Time 241 sec (74-137)
[2019-02-14 13:40] LABS: ACT Activated Clotting Time 279 sec (74-137)
[2019-02-14 13:40] LABS: ACT Activated Clotting Time 180 sec (74-137)
[2019-02-14] MEDS: Lactated Ringers 1,000 ML 30 ML IV (14:15)
[2019-02-14 14:21] LABS: Bedside Glucose 231 mg/dL (70-110)
[2019-02-14] MEDS: HYDROcodone Bitartrate/Apap 5/325 Tablet PO (15:38)
[2019-02-14] MEDS: Glimepiride 4 MG Tablet PO (16:48)
[2019-02-14] MEDS: Morphine 2 MG/ML Syringe IV ×2 (16:50→21:31)
[2019-02-14 17:00] LABS: Bedside Glucose 215 mg/dL (70-110)
--- NOTE | 2019-02-14 17:18 | CPS ---
SMI PLACED AT BEDSIDE...PT OUT OF ROOM UNABLE TO INSTRUCT
--- NOTE | 2019-02-14 18:02 | PCM.PN.BLA ---
Progress Note Pt progressing well, no complaints Right leg minimal swelling, clean and dry 2+ right DP pulse Satis
[2019-02-14] MEDS: Atorvastatin Calcium 20 MG Tablet PO (21:32)
[2019-02-14 22:31] LABS: Bedside Glucose 198 mg/dL (70-110)
[2019-02-15 02:00] VITALS: BP 116/67; PULSE 62; RESP 16; TEMP 36.8; O2SAT 96
[2019-02-15] MEDS: HYDROcodone Bitartrate/Apap 5/325 Tablet PO ×3 (02:06→12:02)
[2019-02-15 04:58] VITALS: BP 119/68; PULSE 69; RESP 16; TEMP 36.8; O2SAT 98
[2019-02-15 05:44] VITALS: BP 108/60; PULSE 65; RESP 16; TEMP 36.8; O2SAT 97
--- NOTE | 2019-02-15 06:13 | PCM.GEN.VAS ---
General Vascular Note - Subjective Patient is comfortable, no significant pain, he is able to fully bear weight on his right leg, he is voiding without difficulty - Objective Vital Signs Temp Pulse Resp BP Pulse Ox 98.3 F 65 16 108/60 97 02/15/19 05:44 02/15/19 05:44 02/15/19 05:44 02/15/19 05:44 02/15/19 05:44 Oxygen Delivery Method Room Air Weight: 180 lb 8.937 oz Body Mass Index (BMI) 25.9 Intake and Output for Last 24 Hours 02/13/19 02/14/19 02/15/19 23:59 23:59 23:59 Intake Total 4421 / 4421 384 / 384 Output Total 1550 / 1550 300 / 300 Balance 2871 / 2871 84 / 84 Laboratory Tests Past 24 Hrs 02/14/19 02/14/19 02/14/19 07:57 10:27 10:59 Activated Clotting Time 114 279 H 241 H 02/14/19 02/14/19 11:29 12:03 Activated Clotting Time 224 H 180 H Right lower extremity has clean dry and tract dressings, DASHAWN hose is in place. No significant swelling, warm viable foot with good capillary refill Vascular Exam: R Femoral: 3+, R Popliteal: 2+, R Posterior Tibial: 1+, R Doraslis Pedis: 2+ - Assessment/Plan Patient is making excellent progress. We will plan for dressing changes today and discharged today. He has been given activity and wound care instructions. Mark Machado M.D., F.A.C.S.
[2019-02-15] MEDS: Aspirin E.C. 81 MG Tablet PO (07:59)
[2019-02-15] MEDS: Lisinopril 5 MG Tablet PO (07:59)
[2019-02-15] MEDS: Clopidogrel Bisulfate 75 MG Tablet PO (07:59)
[2019-02-15 08:00] VITALS: BP 110/67; PULSE 66; RESP 18; TEMP 36.5; O2SAT 100
[2019-02-15 08:01] LABS: Bedside Glucose 234 mg/dL (70-110)
[2019-02-15] MEDS: Glimepiride 4 MG Tablet PO (08:27)
--- NOTE | 2019-02-15 09:30 | CASEMGMT ---
ETD AYOUB assessment: Face to Face with patient for initial transition planning/care coordination assessment. TED AYOUB introduced self and role at [facility], pt voices understanding and consents to assessment at this time. Pt is sitting up in bed in no distress at this time. Pt is A/Ox4 at this time and answers all questions appropriately at this time. Pt's at bedside during assessment and answers most questions for pt at this time. Care providers, pharmacy, and demographics verified/updated at this time. PCP: Arvind Specialists: Rashid cardio; Carter, surgeon [facility]erred [facility]acy: [facility] Insurance: MMO Prescription Benefit: MMO Living Will/HPOA: Pt states does not have LW/HPOA and declines info at this time. LNOK: Bea [place], Living Arrangements: Pt states lives with family in 1 story apt and states no concerns at home at this time. Pt states is independent with ADL's. Transportation: Pt states drives self and states no transportation concerns at this time. DME/HHC: Pt states no current DME or need for any at this time. Pt states no hx of HHC or SNF in the past. Pt states no concerns with going home at time of discharge. 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 Pt states smokes 2-3packs/day and states does not drink ETOH. Pt/ state no further concerns/needs at this time. CM to follow for any further discharge planning/needs. Advised pt to ask for CM if any further questions/concerns/needs arise, voices understanding. Pt Goal: Home Plan: [place] TED AYOUB
--- NOTE | 2019-02-15 10:49 | PHA.DC.COU ---
Pharmacy Services has performed discharge medication counseling for this patient. The patient was counseled on the following discharge medications and changes in medications for homegoing review. 1. NORCO 5/325MT PO Q4H PRN PAIN The Reason for Use, instructions for use, and potential side effects were reviewed for all new medications. The patient's questions regarding all of their medications were answered. The patient was able to verbally demonstrate an understanding of their discharge medications.
[2019-02-15 11:48] VITALS: BP 110/70; PULSE 60; RESP 18; TEMP 36.4; O2SAT 99
== END 2019-02-15 12:08 | disposition home or self-care (01) | DRG 254 ==
LOC: ACINP 05:21 → MS3 05:42 → PCU 08:01
PROVIDERS: Admitting Provider Surgery; Family Provider Student in an Organized Health Care Education/Training Program; PCP Student in an Organized Health Care Education/Training Program; Referring Provider Surgery; Visit Provider Surgery
PROC: 041K0ZL Bypass Right Femoral Artery to Popliteal Artery, Open Approach (ICD-10-PCS; principal; 2019-02-14 06:45)
DX: I70.211 Atherosclerosis of native arteries of extremities with intermittent claudication, right leg (principal); I25.10 Atherosclerotic heart disease of native coronary artery without angina pectoris; Z95.1 Presence of aortocoronary bypass graft; I10 Essential (primary) hypertension; F17.210 Nicotine dependence, cigarettes, uncomplicated; E78.5 Hyperlipidemia, unspecified; E11.9 Type 2 diabetes mellitus without complications; I25.2 Old myocardial infarction
CPT/HCPCS: 36415; 76000; 82962; 83036; 85347; J7120; J2405

== ENCOUNTER → 2019-03-27 | Outpatient (CLI) | payer OTHER, SELFPAY ==
[2019-02-14 05:44] VITALS: BMI 25.9
--- NOTE | 2019-03-27 09:55 | ART_ITS ---
Reason For Study: PSD Procedure A bilateral lower extremity continuous wave Doppler with analog waveform analysis,segmental pressures,and ankle brachial indexes without exercise. Left Segmental Pressures Left brachial= 118mmHg. Left posterior tibial artery = 114mmHg. Left dorsalis pedis artery = 122mmHg. Left digit = 87 mmHg. The left dorsalis pedis waveforms are biphasic. The left posterior tibial artery waveforms are biphasic. Right Segmental Pressures Right brachial= 108mmHg. Right posterior tibial artery = 120mmHg. Right dorsalis pedis artery = 107mmHg. Right digit = 78 mmHg. The right dorsalis pedis waveforms are biphasic. The right posterior tibial artery waveforms are biphasic. Indices The right ankle brachial index by the dorsalis pedis is .91. The right ankle brachial index by the posterior tibial artery is 1.02. The right digital-brachial index is .66. The left ankle brachial index by the posterior tibial artery is .97. The left ankle brachial index by the dorsalis pedis is 1.03. The left digital-brachial index is .74. Interpretation Summary Ankle brachial indices are borderline bilaterally at rest. Doppler waveforms are biphasic suggesting occlusive disease bilaterally in the range of vascular claudication but the level of the disease cannot be determined. Critical ischemia is not identified. Ordering Physician: Mark Machado Referring Physician: ROBERTO MCCOY DO Performed By: Diana Cruz, MICHAELA, RVT
--- NOTE | 2019-03-27 09:55 | ADUL_ITS ---
Reason For Study: PAD Right Velocities Ext. Iliac Artery, dist = 111 cm./sec. Common Femoral Artery, mid = 297 cm./sec. Common Femoral Artery, dist = 242 cm./sec. Supf Femoral Artery, prox = 80 cm./sec. Profunda Femoral Artery = 72 cm./sec. Popliteal Artery, prox. = 101 cm./sec. Popliteal Artery, mid = 85 cm./sec. Popliteal Artery, dist = 75 cm./sec. Post. Tibial Artery, prox = 77 cm./sec. Post. Tibial Artery, mid = 90 cm./sec. Post. Tibial Artery, dist = 59 cm./sec. Peroneal Artery, prox = 103 cm./sec. Peroneal Artery, mid = 41 cm./sec. Peroneal Artery,dist = 26 cm./sec. Ant. Tibial Artery, prox = 98 cm./sec. Ant. Tibial Artery, mid = 57 cm./sec. Ant. Tibial Artery, dist = 64 cm./sec. Bypass graft, prox. anastamosis = 160 cm./sec. Bypass graft, mid = 163 cm./sec. Bypass graft, dist anastamosis = 116 cm./sec. Bypass graft, dist [place] vessel = 160 cm./sec. Procedure Exam performed in department. Interpretation Summary Patent right lower extremity bypass graft with constant velocity throughout Elevated velocity right mid common femoral artery suspicious for >50% stenosis. Patent infrageniculate Anterior tibial, posterior tibial and peroneal arteries. Ordering Physician: Mark Machado Referring Physician: ROBERTO MCCOY Performed By: Diana Cruz, RDCS, RVT
== END | disposition home or self-care (01) ==
LOC: CVS 09:53
PROVIDERS: Family Provider Student in an Organized Health Care Education/Training Program; PCP Student in an Organized Health Care Education/Training Program; Referring Provider Surgery; Visit Provider Surgery
DX: I70.211 Atherosclerosis of native arteries of extremities with intermittent claudication, right leg (principal)
CPT/HCPCS: 93923; 93926

== ENCOUNTER → 2019-08-16 13:44 | Outpatient (CLI) | payer OTHER, SELFPAY ==
[2019-08-14 15:56] VITALS: BMI 27.1
--- NOTE | 2019-08-16 13:45 | RAD_ITS ---
STUDY: X-RAY - RIGHT HAND REASON FOR EXAM: Male, 43 years old. TECHNIQUE: 3 view(s) of the hand. COMPARISON: None. FINDINGS: Normal radiocarpal articulation. Normal distal radioulnar joint. Normal visualized carpal bones. Normal carpal articulations Normal carpometacarpal articulation of the thumb. Normal second through fifth carpometacarpal joints. Normal metacarpi. Normal metacarpophalangeal joint of the thumb. Normal interphalangeal joint of the thumb. Normal proximal and distal phalanges of the thumb. Normal metacarpophalangeal joints of the second through fifth fingers. Normal proximal and distal interphalangeal joints of the second through fifth fingers. Normal phalanges of the second through fifth fingers. The soft tissue swelling in the dorsal aspect of the hand RAD/Hand Min 3 Views IMPRESSION: No osseous or articular abnormality noted Electronically Signed: Denisa Duncan, at 14:01 EST Tel , Service support ,
== END ==
PROVIDERS: Family Provider Student in an Organized Health Care Education/Training Program; PCP Student in an Organized Health Care Education/Training Program; Referring Provider Physician Assistant; Visit Provider Physician Assistant
DX: S69.91XA Unspecified injury of right wrist, hand and finger(s), initial encounter (principal)
CPT/HCPCS: 73130

== ENCOUNTER 2019-11-08 08:11 | Emergency (ER) | payer OTHER, SELFPAY ==
[2019-08-28 15:24] VITALS: BMI 27.1
[2019-11-08 08:12] VITALS: BP 136/90; PULSE 73; RESP 13; TEMP 36.8; O2SAT 98; BMI 29.2
--- NOTE | 2019-11-08 08:42 | RAD_ITS ---
STUDY: X-RAY CHEST REASON FOR EXAM: Male, 44 years old. CHEST PAINS LEFT SIDE OF CHEST. HX OF [place] AND STENTS PLACED. TECHNIQUE: Single AP portable view of the chest. COMPARISON: Comparison is made with prior study dated January 25, 2019. FINDINGS: EKG electrodes are seen. The lungs are clear and expanded. There is no demonstrated pleural abnormality. Normal size heart. Normal mediastinum and pj. Normal visualized pulmonary arteries. There is ectasia of the ascending thoracic aorta. Normal visualized thoracic spine. Normal visualized ribs, clavicles, and shoulders. There is no demonstrated abnormality of the visualized soft tissue structures of the upper abdomen. RAD/Chest 1 View (Portable) IMPRESSION: Ectasia of the ascending thoracic aorta. Is the patient hypertensive? Electronically Signed: Puneet Ross, at 9:23 EST , Service support ,
--- NOTE | 2019-11-08 08:42 | EKG12_ITS ---
Test Reason : CP Blood Pressure : / mmHG Vent. Rate : 075 BPM Atrial Rate : 075 BPM P-R Int : 128 ms QRS Dur : 078 ms QT Int : 362 ms P-R-T Axes : 016 036 055 degrees QTc Int : 404 ms Normal sinus rhythm Normal ECG Confirmed by MARYA DOZIER, KAVON ([id number]), editor book ANITRA HERNANDEZ ([id number]) on 11/13/2019 2:25:21 PM Referred By: THERON Confirmed By:BLANCA MALHOTRA MD
[2019-11-08 08:48] LABS: Absolute Lymphocyte Count 2.39 X10^3/uL (0.83-4.51); Absolute Neutrophil Count 5.4 X10^3/uL (2.0-7.7); Basophil# 0.04 X10^3/uL; Basophil% 0.5 % (0-1); Eosinophils% 2.3 % (0-5); Hematocrit 43.9 % (40-54); Hemoglobin 15.2 g/dL (13.0-16.5); Lymphocyte # 2.39 X10^3/ul (4.0); Lymphocyte % 27.6 % (19-41); Mean Corp Hgb Conc 34.6 g/dL (32-36); Mean Corpuscular Hgb 32.1 pg (27.0-32.0); Mean Corpuscular Volume 92.8 fL (80-94); Mean Platelet Vol. 9.5 fl (6.2-12.0); Monocyte# 0.63 X10^3/uL; Monocyte% 7.3 % (0-10); NRBC Flagged by Analyzer 0 % (0-5); Neutrophil # 5.36 X10^3/uL (2.7-7.7); Platelet Count 289 K/mm3 (150-450); RBC Distribution Width CV 12.1 % (11.6-14.6); RBC Distribution Width SD 41.5 fl (35.1-43.9); Red Blood Count 4.73 M/mm3 (4.6-6.2); White Blood Count 8.7 K/mm3 (4.4-11.0)
[2019-11-08] MEDS: Ketorolac 15 MG/ML Vial IV (08:50)
[2019-11-08] MEDS: 0.9% Normal Saline 1,000 ML 150 ML IV (08:50)
--- NOTE | 2019-11-08 08:54 | ED.VISSUMM ---
- ER Visit Summary Date of Service: 11/08/19 Chief Complaint: Chest pain History of Present Illness: The patient is a [address] Mike and Dr. Samuels. 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 He is unable to further describe the pain. He reports that it is 10 out of 10 at worst and 6 out of 10 currently. Is worsened by twisting of the torso or movement of his left arm. He denies any change with exertion or breathing. He states that it is relieved by not moving. He has not taken any medications for this. He denies any ration into an his neck or shoulders. He denies associated nausea, vomiting, diaphoresis, or shortness of breath. Does report that he feels lightheaded. This is unchanged with standing. He has not passed out. Patient does have a history of coronary artery disease and peripheral arterial disease. He has 3 stents in his heart. He is also had a femoropopliteal bypass on the right. Physical Examination: Vitals: Stable. Afebrile. General: Well-nourished and well-developed. Head: Normocephalic atraumatic. Neck: Supple, no lymphadenopathy. No JVD. Nontender. Cardiovascular: Regular rate and rhythm. No murmurs. Respiratory: No respiratory distress. Clear to auscultation bilaterally. Abdominal: Soft, nontender, nondistended, normal bowel sounds. No guarding, rebound, or peritoneal signs. Back: Nontender. Extremities: Nontender, no edema. Skin: Normal color, no rash. Neurologic: Alert and oriented ?3. Cranial nerves II through XII are intact. Normal strength and sensation. Psych: Normal affect. Test Results: EKG is sinus at 75. Is unchanged from January 2019. Repeat EKG is unchanged. Initial troponin is less than 0.015. Repeat troponin is negative. Chem-7 shows a chloride of 108, glucose of 2 1, calcium of 8.4. CBC is normal. Clinical Impression(s) from Imaging Studies Chest X-Ray 11/08/19 08:42 IMPRESSION: Ectasia of the ascending thoracic aorta. Is the patient hypertensive? Electronically Signed: Puneet Ross, at 9:23 EST , Service support , Chest CTA 11/08/19 09:31 IMPRESSION: Normal CTA chest examination, without a demonstrated pulmonary embolism or arterial dissection. Electronically Signed: Puneet Ross, at 10:17 EST , Service support , Emergency Department Course and Treatment: Patient was given a dose of Toradol IV. He is resting more comfortably. I did review his last cardiology office visit. His last stress test was in January 2019 and was normal. His last echo was in January 2019. It showed an ejection fraction of 65% and no wall motion abnormalities. Treatment Plan: Patient will be discharged with instructions on symptomatic care. Push fluids. Use Tylenol and/or ibuprofen for pain. Follow-up Dr. Mike in 1 week for another exam. Return to the emergency department for any worsening symptoms. Disposition: To home in improved and stable condition. Impression: 1. Atypical chest pain. This note was generated with [employer] dictation software. It may contain incorrect words, spelling, and punctuation that were not noted in review of the chart prior to signing ED Disposition - Plan for ED Patient: Instructions: CHEST PAIN, Uncertain Cause Referrals: Juan Mike MD [STAFF PHYSICIAN] - 1 Week Srinath Samuels DO [Primary Care Provider] - 1-2 Days if not improving
[2019-11-08 09:12] VITALS: BP 105/77; PULSE 68; RESP 20; O2SAT 97
[2019-11-08 09:19] LABS: Anion Gap 5 (5-15); BUN 12 mg/dL (7-18); BUN/Creat Ratio 13.8 RATIO (10-20); Calcium,Total 8.4 mg/dL (8.5-10.1); Chloride 108 mmol/L (98-107); Creatinine, Serum 0.87 mg/dL (0.70-1.30); EST Glomerular Filtration Rate 101 mL/min (>60); Est Glom Filt Rate - Afr Amer 122 mL/min (>60); Estimated Creatinine Clearance 107.22 ml/min; Glucose 201 mg/dL (74-106); Sodium Level 139 mmol/L (136-145)
--- NOTE | 2019-11-08 09:31 | CT_ITS ---
STUDY: CTA CHEST REASON FOR EXAM: Male, 44 years old. 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 Post-processing of the angiographic images was performed, with multiplanar reformation and 3D reconstruction. Individualized dose optimization techniques were used for this CT. COMPARISON: Comparison is made with prior chest radiograph done earlier in the day. FINDINGS: Normal enhancement of the main pulmonary artery and right and left pulmonary arteries. Normal enhancement of the bilateral peripheral pulmonary arteries. There is no demonstrated pulmonary embolism. Normal thoracic aorta and visualized great vessels. There is no demonstrated aortic dissection. Normal heart and pericardium. There are visualized mediastinal lymph nodes, which are within normal size limits, and with normal morphology. Normal hilar regions. Normal visualized trachea and bronchi. The lungs are well expanded. Normal pulmonary parenchyma. Normal pleura. Normal chest wall structures. Normal osseous structures. Small hiatal hernia. CT/CTA Chest W/WO Contrast IMPRESSION: Normal CTA chest examination, without a demonstrated pulmonary embolism or arterial dissection. Electronically Signed: Puneet Ross, at 10:17 EST , Service support ,
[2019-11-08] MEDS: Morphine 4 MG/ML Syringe IV (09:34)
[2019-11-08 09:35] VITALS: BP 107/79; PULSE 70; RESP 12; O2SAT 98
[2019-11-08 12:57] VITALS: BP 111/66; PULSE 64; RESP 18; O2SAT 97
== END 2019-11-08 12:58 | disposition home or self-care (01) ==
LOC: ED 09:00
PROVIDERS: Emergency Provider Emergency Medicine; PCP Student in an Organized Health Care Education/Training Program
DX: R07.89 Other chest pain (principal); R42 Dizziness and giddiness; I25.10 Atherosclerotic heart disease of native coronary artery without angina pectoris; E11.9 Type 2 diabetes mellitus without complications; I10 Essential (primary) hypertension; I73.9 Peripheral vascular disease, unspecified; Z72.0 Tobacco use; Z86.73 Personal history of transient ischemic attack (TIA), and cerebral infarction without residual deficits; Z95.5 Presence of coronary angioplasty implant and graft; Z98.62 Peripheral vascular angioplasty status
CPT/HCPCS: 71045; 71275; 80048; 84484; 85025; 93005; 96361; 96374; 96375; 99285; Q9967; A4216

== ENCOUNTER 2020-05-14 01:31 | Emergency (ER) | payer OTHER, SELFPAY ==
[2020-05-14 01:32] VITALS: BP 187/98; PULSE 74; RESP 16; TEMP 36.8; O2SAT 100; BMI 26.9
--- NOTE | 2020-05-14 01:35 | ED.DCSUM_ITS ---
History of Present Illness Chief Complaint: Dental Informant: Patient Onset: Yesterday Context: Gradual Onset Timing: Waxes and wanes Current Severity: Moderate Maximum Severity: Moderate Narrative: She presents with left upper dental pain. He states it started yesterday morning at work and he got up to go away. It came back last evening and was more severe. He thinks he broke that tooth off some time ago. He has been trying to get in to see a dentist but does not have one currently. - Past Medical History (1) Hyperlipidemia Status: Chronic (2) Presence of coronary angioplasty implant and graft Status: Chronic Comment: Emergent angioplasty and BMS to OM 2011; PTCA/TROY of the RCA and PDA using promus 01/24/14 (3) Essential hypertension Status: Chronic (4) Acute [place], anterolateral wall Status: Resolved (5) Atherosclerotic heart disease of [place] coronary artery without angina pectoris Status: Chronic Comment: Emergent angioplasty and BMS to OM 2011; PTCA/TROY of the RCA and PDA using promus 01/24/14 (6) Type 2 diabetes mellitus Status: Chronic Past Medical History - Allergies and Home Meds Allergies/Adverse Reactions: Allergies sertraline Allergy (Severe, Verified 11/08/19 08:16) Rash Penicillins Allergy (Verified 11/08/19 08:16) Unknown beta fadi Adverse Reaction (Severe, Uncoded 11/08/19 08:16) bradycardia Primary Care Physician: Srinath Samuels DO [Primary Care Provider] - Prior records reviewed: Yes Surgical History: - - [employer] removal Lives: Spouse/ Significant Other Smoking Status: Current every day smoker Review of Systems General: Denies: Chills, Fever Eyes: Denies: Visual changes - bilaterally ENT: Reports: - - Left upper dental pain. Denies: Bilateral ear pain Cardiovascular: Denies: Chest pain Respiratory: Denies: Dyspnea, Cough Gastrointestinal: Denies: Abdominal pain, Nausea, Vomiting Musculoskeletal: Denies: Extremity Pain Skin: Denies: Rash Neurological: Denies: Headache Hematologic: Denies: Easy bruising, Easy bleeding Allergy: Denies: Uticaria Physical Exam Vital Signs/Narrative: Vital Signs Temp Pulse Resp BP Pulse Ox 05/14/20 01:32 98.2 F 74 16 187/98 H 100 Inital Vital Signs reviewed: Yes General: Well nourished, Well developed Head: Normocephalic ENT: Moist mucous membranes, - - No facial edema or erythema. Left maxillary second premolar is tender palpation with decay around the base. He does have multiple dental caries noted. Minimal gum edema. Posterior pharynx examination is normal. No trismus and no sign of Carlos's angina. Neck: Supple Cardiovascular: Regular rate, Regular rhythm Respiratory: No distress, CTA bilaterally Abdomen: Soft, Nontender Skin: Normal color Neurological: Alert, Oriented x3 Psychological: Normal affect Diagnostic/Tx/Re-eval - Medical Decision Making Patient does have a penicillin allergy will be treated with clindamycin and a short course of naproxen. He is given a dental referral list. ED Disposition - Plan for ED Patient: Disposition: Home or Assisted Living Diagnosis: Odontalgia Instructions: ED Tooth Pain Prescriptions: Clindamycin [Cleocin] 300 mg PO 4X/DAY #80 cap Transmission Status: Pending to [facility] #30 Naproxen [Naprosyn] 500 mg PO BID PRN #10 tab PRN Reason: Pain Score 4-10/10 Transmission Status: Pending to [facility] #30 Additional Instructions: Dental Clinic list provided
[2020-05-14] MEDS: Clindamycin HCl 150 MG Capsule 300 MG PO (01:42)
[2020-05-14] MEDS: Naproxen 500 MG Tablet PO (01:42)
== END 2020-05-14 01:53 | disposition home or self-care (01) ==
LOC: ED 01:52
PROVIDERS: Emergency Provider Emergency Medicine; PCP Student in an Organized Health Care Education/Training Program
DX: K08.89 Other specified disorders of teeth and supporting structures (principal); F17.200 Nicotine dependence, unspecified, uncomplicated; E78.5 Hyperlipidemia, unspecified; I10 Essential (primary) hypertension; I25.10 Atherosclerotic heart disease of native coronary artery without angina pectoris; Z95.5 Presence of coronary angioplasty implant and graft; E11.9 Type 2 diabetes mellitus without complications; I25.2 Old myocardial infarction; K02.9 Dental caries, unspecified
CPT/HCPCS: 99283

== ENCOUNTER 2021-06-17 12:16 | Emergency (ER) | payer OTHER, SELFPAY ==
[2021-06-17 12:16] VITALS: BP 129/88; PULSE 98; RESP 16; TEMP 35.8; O2SAT 98; BMI 26.1
--- NOTE | 2021-06-17 12:58 | ED.RN ---
Pt. presents with rectal bleeding that started this morning around 1030, bright red, which has gradually gotten worse.
[2021-06-17 13:43] LABS: Absolute Lymphocyte Count 2.42 X10^3/uL (0.83-4.51); Absolute Neutrophil Count 5.5 X10^3/uL (2.0-7.7); Basophil# 0.04 X10^3/uL; Basophil% 0.5 % (0-1); Eosinophil# 0.14 X10^3/uL; Eosinophils% 1.6 % (0-5); Hematocrit 46.1 % (40-54); Hemoglobin 15.5 g/dL (13.0-16.5); Lymphocyte # 2.42 X10^3/ul (0.83-4.51); Lymphocyte % 27.7 % (19-41); Mean Corp Hgb Conc 33.6 g/dL (32-36); Mean Corpuscular Hgb 31.3 pg (27.0-32.0); Mean Corpuscular Volume 93.1 fL (80-94); Mean Platelet Vol. 9.5 fl (6.2-12.0); Monocyte# 0.63 X10^3/uL; Monocyte% 7.2 % (0-10); NRBC Flagged by Analyzer 0 % (0-5); Neutrophil # 5.47 X10^3/uL (2.7-7.7); Neutrophil % 62.5 % (47-70); Platelet Count 382 K/mm3 (150-450); RBC Distribution Width CV 12.3 % (11.6-14.6); RBC Distribution Width SD 42.5 fl (35.1-43.9); Red Blood Count 4.95 M/mm3 (4.6-6.2); White Blood Count 8.7 K/mm3 (4.4-11.0)
--- NOTE | 2021-06-17 13:52 | ED.RN ---
Accompanied Dr. Bundy with rectal exam. Pt. tolerated well. Pt. cleansed with bath wipes and pressure dressing applied to rectal area.
[2021-06-17 14:01] LABS: ALB/GLOB Ratio 1.1 RATIO (0.9-2.4); AST(SGOT) 14 U/L (15-37); Alanine Aminotransfer ALT/SGPT 25 U/L (16-61); Albumin, Serum 4.1 g/dL (3.2-5.0); Alkaline Phosphatase 158 U/L (45-117); Anion Gap 10 (5-15); BUN 12 mg/dL (7-18); BUN/Creat Ratio 13.2 RATIO (10-20); Calcium,Total 8.9 mg/dL (8.5-10.1); Chloride 104 mmol/L (98-107); Creatinine, Serum 0.91 mg/dL (0.70-1.30); EST Glomerular Filtration Rate 95 mL/min (>60); Est Glom Filt Rate - Afr Amer 115 mL/min (>60); Estimated Creatinine Clearance 104.73 ml/min; Globulin 3.9 g/dL (2.2-4.2); Glucose 182 mg/dL (74-106); Sodium Level 139 mmol/L (136-145)
[2021-06-17] MEDS: Lidocaine/Epi/Tetracaine 50 ML 1 APPLIC TOPICAL (14:36)
[2021-06-17] MEDS: Morphine 4 MG/ML Syringe IV (14:45)
[2021-06-17 14:47] VITALS: BP 114/84; PULSE 63; RESP 18; O2SAT 98
--- NOTE | 2021-06-17 14:57 | EX.ED.DYSGE1 ---
HPI History of Present Illness Chief Complaint: GI Bleed Informant: patient Narrative Narrative: Patient is a 45-year-old male with history of peripheral vascular disease, coronary artery disease on Plavix therapy presenting with rectal bleeding. Patient dates he was at work when suddenly he had bleeding coming from his rectum that was soaking through his pants. He does last bowel movement was 2 days ago. He has some mild discomfort in his rectal region. He did take his Plavix this morning. He notes he does have some mild lower abdominal pain. He denies any urinary symptoms. Denies any history of GI bleeding, black or bloody stools. Patient attributes more of his abdominal pain to not having eaten anything today. He has been feeling more fatigued but denies any lightheadedness, syncope or chest pain. He denies any shortness of breath. No other complaints at this time. [facility] Medical History (Updated 06/17/21 @ 15:[address] Dixie Bundy, DO) Acute [place], anterolateral wall (2011) Atherosclerotic heart disease of [place] coronary artery without angina pectoris Chronic back pain Chronic back pain Coronary artery disease Diabetes Diabetes mellitus type II Essential hypertension Femoral artery occlusion, right Heart disease Hyperlipidemia Pain of right calf Type 2 diabetes mellitus Home Medications glimepiride 4 mg PO BID 01/23/14 [History Last Taken 01/25/19] aspirin 81 mg tablet,delayed release 81 mg PO DAILY 07/11/18 [History Last Taken 01/25/19] metformin 500 mg tablet 1,000 mg PO BIDCM tab 07/11/18 [History Last Taken 01/25/19] clopidogrel 75 mg tablet 75 mg PO DAILY #30 tab 08/14/19 [Rx Last Taken Unknown] lisinopril 5 mg tablet 5 mg PO DAILY #30 tab 08/14/19 [Rx Last Taken Unknown] nitroglycerin 0.4 mg sublingual tablet 0.4 mg SUBLINGUAL Q5-15M PRN #25 tab 08/14/19 [Rx Last Taken Unknown] rosuvastatin 10 mg tablet 10 mg PO DAILY #30 tab 08/14/19 [Rx Last Taken Unknown] cyclobenzaprine 5 mg tablet 5 mg PO QHS 08/16/19 [History Last Taken Unknown] hydrocodone-acetaminophen 5-325mg 5mg-325mg 1 tab PO QHS 08/16/19 [History Last Taken Unknown] naproxen 500 mg PO BID PRN #10 tab 05/14/20 [Rx Last Taken Unknown] hydrocortisone [Anusol-HC] 1 applic [place] QHS PRN #30 g 06/17/21 [Rx Last Taken Unknown] sennosides [senna] 8.6 mg PO DAILY PRN #14 tab 06/17/21 [Rx Last Taken Unknown] Allergy/AdvReac Type Severity Reaction Status Date / Time sertraline Allergy Severe Rash Verified 06/17/21 12:19 Penicillins Allergy Unknown Verified 06/17/21 12:19 beta fadi AdvReac Severe bradycardia Uncoded 06/17/21 12:19 Family History Father CAD (coronary artery disease) Myocardial infarction, Onset Age: 45 CVA (cerebral vascular accident) Uncle Myocardial infarction, Onset Age: 40 Other Diabetes Heart disease Surgical History Femoral artery occlusion, left History of heart artery stent Presence of coronary angioplasty implant and graft s/p right apll Social History Smoking Status: Current every day smoker tobacco type: cigarettes second hand exposure: Yes alcohol intake: never substance use type: does not use caffeine: Yes what type of physical activity do you participate in: none frequency: does not exercise seatbelt use: always ROS ROS ED Constitutional Constitutional ED: Reports malaise; Denies chills or fever(s) Eyes Eyes: Denies blurry vision or loss of vision ENT ENT ED: Denies rhinorrhea or sore throat Cardiovascular Cardiovascular: Denies chest pain or dizziness Respiratory/Chest Respiratory/Chest: Denies cough or dyspnea Gastrointestinal Gastrointestinal: Reports abdominal pain and other Details: Bright red blood per rectum ; Denies nausea or vomiting Genitourinary Genitourinary ED: Denies dysuria or hematuria Musculoskeletal Musculoskeletal: Denies arthralgias or myalgias Integumentary Denies rash or wounds Neurologic Neurologic: Denies focal weakness or headache(s) Psychiatric Psychiatric: Denies anxiety or behavioral changes EXAM Physical Exam Const Vital Signs: 06/17/21 12:16 06/17/21 14:47 Temperature 96.5 F L Temperature Source Temporal Pulse Rate 98 63 Respiratory Rate 16 18 Blood Pressure 129/88 H 114/84 H Blood Pressure Mean 101 94 Pulse Ox 98 98 Oxygen Delivery Method Room Air Room Air Positive well nourished, well developed and no apparent distress General Appearance ED: well developed; Negative for pallor HEENT Reports normocephalic atraumatic Nose: no nasal discharge External Ear: external ears normal Mouth ED: Yes moist mucous membranes normal Eyes PERRL and EOMs intact bilaterally Neck full ROM, supple and no meningeal signs Chest Wall inspection of chest normal Resp normal respiratory effort and normal air movement Cardio regular rate and regular rhythm GI normal to inspection, nondistended, normoactive bowel sounds, non-tender and no masses Palpation: Negative for guarding Narrative: Patient is a partially thrombosed hemorrhoid that is actively bleeding from a pinpoint area. Initially on rectal exam there are large amount of clots around his rectum but when these are cleaned off of the bleeding seems to come from the hemorrhoid. Back/Spine no CVA tenderness Extremity normal to inspection and full ROM Neuro oriented x3 and no focal motor deficits Sensorium / Orientation: alert Psych mental status grossly normal and thought process normal Skin no rashes or lesions noted and no wounds General Skin Exam: Negative for jaundice or pallor MDM MDM MDM Narrative Medical decision making narrative: Patient evaluated for bright red blood per rectum. On rectal exam patient appears to have a bleeding hemorrhoid. It is partially thrombosed but not fully. Patient is on Plavix which is likely why he is bleeding as much as he has. He is hemodynamically stable in the ER. Direct pressure is placed with gauze and then let is applied. On reevaluation patient has no further bleeding. He is given a dose of morphine for his rectal pain in the ER. On reevaluation he notes he is feeling better. Patient will be given referral for surgery follow-up for his hemorrhoid. He is counseled on applying pressure if the bleeding resumes as well as stool softeners to help prevent irritation with bowel movements. Patient is counseled on signs and symptoms requiring return to the emergency room. Patient verbalizes agreement and understand this plan. Patient discharged home in stable and improved condition. Patient informs nursing that he would like to receive his Covid vaccine. This was ordered. Lab Data Labs: Laboratory Results - last 24 hr 06/17/21 06/17/21 06/17/21 13:25 13:25 13:25 WBC 8.7 RBC 4.95 Hgb 15.5 Hct 46.1 MCV 93.1 MCH 31.3 MCHC 33.6 RDW Std Deviation 42.5 RDW Coeff of Miriam 12.3 Plt Count 382 MPV 9.5 Immature Gran % (Auto) 0.500 Neut % (Auto) 62.5 Lymph % (Auto) 27.7 [place] % (Auto) 7.2 Eos % (Auto) 1.6 Baso % (Auto) 0.5 Absolute Neuts (auto) 5.5 Absolute Lymphs (auto) 2.42 Nucleated RBC % 0 Sodium 139 Potassium 4.0 Chloride 104 Carbon Dioxide 25.0 Anion Gap 10 BUN 12 Creatinine 0.91 Estim Creat Clear Calc 104.73 Est GFR (MDRD) Af Amer 115 Est GFR (MDRD) Non-Af 95 BUN/Creatinine Ratio 13.2 Glucose 182 H Calcium 8.9 Total Bilirubin 0.30 AST 14 L ALT 25 Alkaline Phosphatase 158 H Total Protein 8.0 Albumin 4.1 Globulin 3.9 Albumin/Globulin Ratio 1.1 Blood Type A POSITIVE Antibody Screen NEGATIVE Discharge Plan Triage Chief Complaint: GI Bleed ED Provider: Dixie Bundy Dx/Rx/DC Orders Clinical Impression: Bleeding external hemorrhoids, Pain in rectum, COVID-19 vaccine administered Instructions: ED Hemorrhoids Prescriptions: New hydrocortisone [Anusol-HC] 2.5 % cream with perineal applicator 1 applic [place] QHS PRN (Reason: hemorrhoids) Qty: 30 RF: 0 sennosides [senna] 8.6 mg tablet 8.6 mg PO DAILY PRN (Reason: constipation) Qty: 14 RF: 0 No Action aspirin [Adult Low Dose Aspirin] 81 mg tablet,delayed release (DR/EC) 81 mg PO DAILY RF: 0 clopidogrel 75 mg tablet 75 mg PO DAILY Qty: 30 RF: 11 lisinopril 5 mg tablet 5 mg PO DAILY Qty: 30 RF: 11 nitroglycerin 0.4 mg tablet, sublingual 0.4 mg SUBLINGUAL Q5-15M PRN (Reason: Cardiac/Chest Pain) Qty: 25 RF: 3 rosuvastatin 10 mg tablet 10 mg PO DAILY Qty: 30 RF: 11 cyclobenzaprine 5 mg tablet 5 mg PO QHS RF: 0 hydrocodone-acetaminophen [[place]] 5-325 mg tablet 1 tab PO QHS RF: 0 glimepiride 4 MG tablet 4 mg PO BID RF: 0 metformin 500 mg tablet 1,000 mg PO BIDCM RF: 0 naproxen 500 MG tablet 500 mg PO BID PRN (Reason: Pain Score 4-10/10) Qty: 10 RF: 0 Primary Care Provider: Srinath Samuels Referrals: Juan Moran MD [STAFF PHYSICIAN] - 3-5 Days Srinath Samuels DO [Primary Care Provider] - Disposition Disposition: Home, Self Care
[2021-06-17 15:51] VITALS: BP 116/89; PULSE 66; RESP 16; O2SAT 98
[2021-06-17] MEDS: COVID-19 VACC, MRNA(PFIZER)/PF 30 MCG/0.3 ML SYRINGE IM (16:05)
[2021-06-17 16:28] VITALS: BP 121/83; PULSE 63; RESP 14; TEMP 36.4; O2SAT 97
--- NOTE | 2021-06-17 16:34 | ED.RN ---
Pt. observed on shot clock after administration. No adverse side effects reported or observed at time of discharge. Vital signs stable. Pt. alert and oriented and verbalizes understanding of discharge instructions.
== END 2021-06-17 16:37 | disposition home or self-care (01) ==
PROVIDERS: Emergency Provider Emergency Medicine; PCP Student in an Organized Health Care Education/Training Program
DX: K64.5 Perianal venous thrombosis (principal); Z23 Encounter for immunization; I25.10 Atherosclerotic heart disease of native coronary artery without angina pectoris; E11.51 Type 2 diabetes mellitus with diabetic peripheral angiopathy without gangrene; I10 Essential (primary) hypertension; E78.5 Hyperlipidemia, unspecified; M54.9 Dorsalgia, unspecified; G89.29 Other chronic pain; F17.210 Nicotine dependence, cigarettes, uncomplicated; Z79.02 Long term (current) use of antithrombotics/antiplatelets; Z79.82 Long term (current) use of aspirin; Z79.84 Long term (current) use of oral hypoglycemic drugs; Z79.899 Other long term (current) drug therapy; I25.2 Old myocardial infarction
CPT/HCPCS: 80053; 85025; 86850; 86900; 86901; 91300; 96374; 99283; A4216

== ENCOUNTER 2021-12-11 14:49 | Emergency (ER) | payer OTHER, SELFPAY ==
[2021-12-11 14:50] VITALS: BP 134/84; PULSE 69; RESP 15; TEMP 36.2; O2SAT 100; BMI 25.2
[2021-12-11 16:17] VITALS: BP 134/84; PULSE 69; RESP 15; TEMP 36.2; O2SAT 100
[2021-12-11 16:44] LABS: ALB/GLOB Ratio 1.2 RATIO (0.9-2.4); AST(SGOT) 11 U/L (15-37); Alanine Aminotransfer ALT/SGPT 25 U/L (16-61); Alkaline Phosphatase 121 U/L (45-117); Anion Gap 5 (5-15); BUN 11 mg/dL (7-18); BUN/Creat Ratio 11.7 RATIO (10-20); Calcium,Total 9.3 mg/dL (8.5-10.1); Chloride 103 mmol/L (98-107); Creatinine, Serum 0.94 mg/dL (0.70-1.30); EST Glomerular Filtration Rate 92 mL/min (>60); Est Glom Filt Rate - Afr Amer 111 mL/min (>60); Estimated Creatinine Clearance 100.31 ml/min; Globulin 3.3 g/dL (2.2-4.2); Glucose 251 mg/dL (74-106); Potassium 4.3 mmol/L (3.5-5.1); Protein, Total 7.3 g/dL (6.4-8.2); Sodium Level 135 mmol/L (136-145)
--- NOTE | 2021-12-11 17:15 | EDS_ITS ---
HPI History of Present Illness Chief Complaint: Hyperglycemia Informant: patient Onset/Context/Timing Onset: Days Context: Gradual Onset Timing: Continuous Current Severity: Mild Maximum Severity: Mild Narrative Narrative: 46-year-old male history of CA, CAD and diabetes. He is on Metformin at home 15 mg in the morning and thousand at night. And he takes weekly insulin. States his blood sugars have been running high recently. As high as 564. Prior to arrival today it was 401. He denies any illness. He denies any nausea vomiting diarrhea or fever. He is not on any steroids. He denies any recent changes to his medications. Prior similar symptoms: Yes Recent Illness/Hospitalization: No [facility] Medical History (Updated 12/11/21 @ 17:[address] Josiah Palacios MD) Acute [place], anterolateral wall (2011) Atherosclerotic heart disease of [place] coronary artery without angina pectoris Chronic back pain Chronic back pain Coronary artery disease Diabetes Diabetes mellitus type II Essential hypertension Femoral artery occlusion, right Heart disease Hyperlipidemia Pain of right calf Type 2 diabetes mellitus Home Medications glimepiride 4 mg PO BID 01/23/14 [History Last Taken 01/25/19] aspirin 81 mg tablet,delayed release 81 mg PO DAILY 07/11/18 [History Last Taken 01/25/19] metformin 500 mg tablet 1,000 mg PO BIDCM tab 07/11/18 [History Last Taken 01/25/19] clopidogrel 75 mg tablet 75 mg PO DAILY #30 tab 08/14/19 [Rx Last Taken Unknown] lisinopril 5 mg tablet 5 mg PO DAILY #30 tab 08/14/19 [Rx Last Taken Unknown] nitroglycerin 0.4 mg sublingual tablet 0.4 mg SUBLINGUAL Q5-15M PRN #25 tab 08/14/19 [Rx Last Taken Unknown] rosuvastatin 10 mg tablet 10 mg PO DAILY #30 tab 08/14/19 [Rx Last Taken Unknown] cyclobenzaprine 5 mg tablet 5 mg PO QHS 08/16/19 [History Last Taken Unknown] hydrocodone-acetaminophen 5-325mg 5mg-325mg 1 tab PO QHS 08/16/19 [History Last Taken Unknown] naproxen 500 mg PO BID PRN #10 tab 05/14/20 [Rx Last Taken Unknown] hydrocortisone [Anusol-HC] 1 applic [place] QHS PRN #30 g 06/17/21 [Rx Last Taken Unknown] sennosides [senna] 8.6 mg PO DAILY PRN #14 tab 06/17/21 [Rx Last Taken Unknown] Allergy/AdvReac Type Severity Reaction Status Date / Time sertraline Allergy Severe Rash Verified 12/11/21 14:52 Penicillins Allergy Unknown Verified 12/11/21 14:52 beta fadi AdvReac Severe bradycardia Uncoded 12/11/21 14:52 Family History Father CAD (coronary artery disease) Myocardial infarction, Onset Age: 45 CVA (cerebral vascular accident) Uncle Myocardial infarction, Onset Age: 40 Other Diabetes Heart disease Surgical History Femoral artery occlusion, left History of heart artery stent Presence of coronary angioplasty implant and graft s/p right apll Social History Smoking Status: Current every day smoker tobacco type: cigarettes second hand exposure: Yes alcohol intake: never substance use type: does not use caffeine: Yes what type of physical activity do you participate in: none frequency: does not exercise seatbelt use: always ROS ROS ED ROS Narrative Denies. Review of Systems ROS Unobtainable: Denies due to encephalopathy Constitutional Constitutional ED: Denies chills or fever(s) Eyes Eyes: Denies change in vision ENT ENT ED: Denies ear pain Cardiovascular Cardiovascular: Denies chest pain Respiratory/Chest Respiratory/Chest: Denies dyspnea Gastrointestinal Gastrointestinal: Denies abdominal pain, diarrhea, nausea or vomiting Genitourinary Genitourinary ED: Denies dysuria Musculoskeletal Musculoskeletal: Denies myalgias Integumentary Denies rash Neurologic Neurologic: Denies headache(s) Psychiatric Psychiatric: Denies depression Endocrine Endocrinology: Denies polyuria Allergic/Immunologic Allergic/Immunologic ED: Denies urticaria EXAM Physical Exam Narrative Exam Narrative: 46-year male no acute distress vital signs stable afebrile. H EENT exam unremarkable. Neck nontender no lymphadenopathy. Lungs clear to auscultation bilaterally. Heart regular rhythm no murmur. Abdomen soft nontender. Moving all 4 extremities. Back nontender. Neurologically awake and alert with no focal motor deficits. Const Vital Signs: 12/11/21 14:50 12/11/21 16:17 Temperature 97.2 F L 97.2 F L Temperature Source Temporal Temporal Pulse Rate 69 69 Respiratory Rate 15 15 Blood Pressure 134/84 H 134/84 H Blood Pressure Mean 100 100 Pulse Ox 100 100 Oxygen Delivery Method Room Air Room Air Positive well nourished and well developed; Negative for obese, cachectic, contractures or unkempt General Appearance ED: well developed and NAD; Negative for unkempt, cachectic, contractures or pallor Nutritional Appearance: Negative for cachectic or obese HEENT Reports moist mucous membranes Negative for trauma or tenderness Eyes PERRL and EOMs intact bilaterally Neck no lymphadenopathy, supple and no JVD General: Negative for tenderness Chest Wall inspection of chest normal and palpation of chest normal Resp normal respiratory effort and clear to auscultation bilaterally Auscultation: Negative for rales, rhonchi or diminished lung sounds Cardio regular rate, regular rhythm, S1 normal heart sound, S2 normal heart sound and no murmurs GI normal to inspection, nondistended, normoactive bowel sounds, non-tender and non-distended Auscultation: normoactive bowel sounds Palpation: soft Back/Spine no CVA tenderness General Back: Negative for CVA tenderness Extremity normal to inspection General Extremety ED: Negative for edema or tenderness General Extremity: Negative for edema Neuro oriented x3 and CN's II-XII intact bilaterally Sensorium / Orientation: alert; Negative for lethargic or stuporous Motor Exam: strength 5/5 throughout Psych mental status grossly normal Appearance: Negative for unkempt Attitude: No agitated Mood & Affect: Negative for depressed, anxious or tearful Skin no rashes or lesions noted and no wounds General Skin Exam: Negative for jaundice or pallor Rashes: No rashes noted MDM MDM MDM Narrative Medical decision making narrative: 46-year-old male with elevated blood sugar. No history of diabetes. Nurses did triage labs are unremarkable. Gap was 5. Normal BUN and creatinine. Glucose today was 251. I discussed with the patient and his . He will watch his blood sugars closely. And follow-up with his primary care physician for med adjustments. Lab Data Attestation: I reviewed the patient's lab results. Lab results narrative: Chemistries unremarkable sodium 135. Gap 5. Normal BUN creatinine. Glucose 251. Liver enzymes unremarkable. Labs: Laboratory Results - last 24 hr 12/11/21 16:15 Sodium 135 L Potassium 4.3 Chloride 103 Carbon Dioxide 27.0 Anion Gap 5 BUN 11 Creatinine 0.94 Estim Creat Clear Calc 100.31 Est GFR (MDRD) Af Amer 111 Est GFR (MDRD) Non-Af 92 BUN/Creatinine Ratio 11.7 Glucose 251 H Calcium 9.3 Total Bilirubin 0.50 AST 11 L ALT 25 Alkaline Phosphatase 121 H Total Protein 7.3 Albumin 4.0 Globulin 3.3 Albumin/Globulin Ratio 1.2 Discharge Plan Triage Chief Complaint: Hyperglycemia ED Provider: Josiah Palacios Dx/Rx/DC Orders Clinical Impression: Hyperglycemia due to diabetes mellitus Instructions: ED Diabetic Hyperglycemia Prescriptions: No Action aspirin [Adult Low Dose Aspirin] 81 mg tablet,delayed release (DR/EC) 81 mg PO DAILY RF: 0 clopidogrel 75 mg tablet 75 mg PO DAILY Qty: 30 RF: 11 lisinopril 5 mg tablet 5 mg PO DAILY Qty: 30 RF: 11 nitroglycerin 0.4 mg tablet, sublingual 0.4 mg SUBLINGUAL Q5-15M PRN (Reason: Cardiac/Chest Pain) Qty: 25 RF: 3 rosuvastatin 10 mg tablet 10 mg PO DAILY Qty: 30 RF: 11 cyclobenzaprine 5 mg tablet 5 mg PO QHS RF: 0 hydrocodone-acetaminophen [[place]] 5-325 mg tablet 1 tab PO QHS RF: 0 glimepiride 4 MG tablet 4 mg PO BID RF: 0 metformin 500 mg tablet 1,000 mg PO BIDCM RF: 0 naproxen 500 MG tablet 500 mg PO BID PRN (Reason: Pain Score 4-10/10) Qty: 10 RF: 0 hydrocortisone [Anusol-HC] 2.5 % cream with perineal applicator 1 applic [place] QHS PRN (Reason: hemorrhoids) Qty: 30 RF: 0 sennosides [senna] 8.6 mg tablet 8.6 mg PO DAILY PRN (Reason: constipation) Qty: 14 RF: 0 Primary Care Provider: Srinath Samuels Referrals: Srinath Samuels DO [Primary Care Provider] - As soon as possible Activity Restrictions/Additional Instructions: Follow-up with your primary care physician. Log your blood sugars daily and when you follow-up show them your blood sugars so they know how to adjust your diabetic medications. Disposition Disposition: Home, Self Care
[2021-12-11 17:30] VITALS: BP 108/83; PULSE 64; RESP 18; O2SAT 98
--- NOTE | 2021-12-17 17:02 | CM.ED ---
ER RNCM DC F/u Call: Seen in ER 12.11.21 for Hyperglycemia, On Metformin and Insulin. Called patient listed cell number in demographics. Answered by patient Bea and this proposal manager writer introduced self and role. states that patient is doing good and that his blood sugars are coming down. No further issues, concerns or questions at this time. Hai Mahajan RNCM
== END 2021-12-11 17:31 | disposition home or self-care (01) ==
PROVIDERS: Emergency Provider Emergency Medicine; PCP Student in an Organized Health Care Education/Training Program; Visit Provider Emergency Medicine
DX: E11.65 Type 2 diabetes mellitus with hyperglycemia (principal); Z79.4 Long term (current) use of insulin; I10 Essential (primary) hypertension; M54.9 Dorsalgia, unspecified; G89.29 Other chronic pain; I25.10 Atherosclerotic heart disease of native coronary artery without angina pectoris; E78.5 Hyperlipidemia, unspecified; I25.2 Old myocardial infarction; Z79.82 Long term (current) use of aspirin; Z79.899 Other long term (current) drug therapy; Z95.5 Presence of coronary angioplasty implant and graft; F17.210 Nicotine dependence, cigarettes, uncomplicated
CPT/HCPCS: 80048; 80053; 99283; A4216

== ENCOUNTER 2022-04-09 06:06 | Emergency (ER) | payer OTHER, SELFPAY ==
[2022-04-09 06:07] VITALS: BP 141/89; PULSE 85; RESP 16; TEMP 36.3; O2SAT 97; BMI 23.3
--- NOTE | 2022-04-09 06:24 | EKG12_ITS ---
Test Reason : BACK/FLANK PAIN Blood Pressure : / mmHG Vent. Rate : 077 BPM Atrial Rate : 077 BPM P-R Int : 144 ms QRS Dur : 084 ms QT Int : 372 ms P-R-T Axes : 034 061 072 degrees QTc Int : 420 ms Normal sinus rhythm Normal ECG Confirmed by RICHARD DOZIER, SOLE ([id number]), index editor VERNA LIANG ([id number]) on 04/10/2022 8:20:30 AM Referred By: KYLE Confirmed By:SOLE RAMOS MD
--- NOTE | 2022-04-09 06:25 | EDS_ITS ---
HPI History of Present Illness Chief Complaint: Back Informant: patient Narrative Narrative: Patient states he has had pain in his lower back mostly on the right side for about 2 or so days. He has had some back issues before but not a big deal. This is definitely worse if he twists especially looking to the left. It is also bad if he bends forward. He has no radicular symptoms. No bowel or bladder dysfunction. No fevers chills. He states he told the nurse at work that he had pain in his back when he had a heart attack so she sent him in here. But evidently that pain was up in the higher area of the back also chest pain and dyspnea and he does not have the other symptoms. He has no nausea vomiting diaphoresis. It does not hurt to breathe. 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 But no difference in his work. No acute lifting injury. [facility] Medical History Acute [place], anterolateral wall (2011) Atherosclerotic heart disease of [place] coronary artery without angina pectoris Chronic back pain Chronic back pain Coronary artery disease Diabetes Diabetes mellitus type II Essential hypertension Femoral artery occlusion, right Heart disease Hyperlipidemia Pain of right calf Type 2 diabetes mellitus Home Medications glimepiride 4 mg tablet 4 mg PO BID DM 01/23/14 [History Last Taken 01/25/19] aspirin 81 mg tablet,delayed release (Adult Low Dose Aspirin) 81 mg PO DAILY BLOOD THINNER 07/11/18 [History Last Taken 01/25/19] metformin 500 mg tablet 1,000 mg PO BIDCM DM 07/11/18 [History Last Taken 01/25/19] clopidogrel 75 mg tablet 75 mg PO DAILY HEART #30 tabs 08/14/19 [Rx Last Taken Unknown] lisinopril 5 mg tablet 5 mg PO DAILY HTN #30 tabs 08/14/19 [Rx Last Taken Unknown] nitroglycerin 0.4 mg sublingual tablet 0.4 mg sublingual Q5-15M PRN Cardiac/Chest Pain #25 tabs 08/14/19 [Rx Last Taken Unknown] rosuvastatin 10 mg tablet 10 mg PO DAILY CHOLESTEROL #30 tabs 08/14/19 [Rx Last Taken Unknown] cyclobenzaprine 5 mg tablet 5 mg PO QHS 08/16/19 [History Last Taken Unknown] hydrocodone-acetaminophen 5-325mg 5mg-325mg ([place]) 1 tab PO QHS 08/16/19 [History Last Taken Unknown] naproxen 500 mg tablet 500 mg PO BID PRN Pain Score 4-10/10 #10 tabs 05/14/20 [Rx Last Taken Unknown] hydrocortisone 2.5 % topical cream with perineal applicator (Anusol-HC) 1 applic [place] QHS PRN hemorrhoids #30 grams 06/17/21 [Rx Last Taken Unknown] sennosides 8.6 mg tablet (senna) 8.6 mg PO DAILY PRN constipation #14 tabs [Rx Last Taken Unknown] cyclobenzaprine 10 mg tablet 10 mg PO BID PRN muscle spasm #10 tabs 04/09/22 [Rx Last Taken Unknown] hydrocodone-acetaminophen 5-325mg 5mg-325mg 1 tab PO Q6H PRN pain 3 days #10 tabs 04/09/22 [Rx Last Taken Unknown] Allergy/AdvReac Type Severity Reaction Status Date / Time sertraline Allergy Severe Rash Verified 04/09/22 06:09 Penicillins Allergy Unknown Verified 04/09/22 06:09 beta fadi AdvReac Severe bradycardia Uncoded 12/11/21 14:52 Family History Father CAD (coronary artery disease) Myocardial infarction, Onset Age: 45 CVA (cerebral vascular accident) Uncle Myocardial infarction, Onset Age: 40 Other Diabetes Heart disease Surgical History Femoral artery occlusion, left History of heart artery stent Presence of coronary angioplasty implant and graft s/p right apll Social History Smoking Status: Current every day smoker tobacco type: cigarettes second hand exposure: Yes alcohol intake: never substance use type: does not use caffeine: Yes what type of physical activity do you participate in: none frequency: does not exercise seatbelt use: always ROS ROS ED Constitutional Constitutional ED: Denies chills or fever(s) ENT ENT ED: Denies rhinorrhea or sore throat Cardiovascular Cardiovascular: Denies chest pain, orthopnea, palpitations or racing heartbeat Respiratory/Chest Respiratory/Chest: Denies dyspnea, dyspnea on exertion or orthopnea Gastrointestinal Gastrointestinal: Reports abdominal pain; Denies constipation, diarrhea, melena, nausea or vomiting Genitourinary Genitourinary ED: Denies dysuria Musculoskeletal Musculoskeletal: Reports back pain; Denies arthralgias, myalgias or neck pain Integumentary Denies rash Neurologic Neurologic: Denies paresthesias or weakness Psychiatric Psychiatric: Denies anxiety Endocrine Endocrinology: Denies polydipsia or polyuria Hematologic/Lymphatic Hematologic/Lymphatic: Denies easy bleeding or easy bruising Allergic/Immunologic Allergic/Immunologic ED: Denies urticaria EXAM Physical Exam Const Vital Signs: 04/09/22 06:07 Temperature 97.4 F L Temperature Source Temporal Pulse Rate 85 Respiratory Rate 16 Blood Pressure 141/89 H Blood Pressure Mean 106 Pulse Ox 97 Oxygen Delivery Method Room Air Positive well nourished and well developed General Appearance ED: well developed and NAD HEENT Reports moist mucous membranes Eyes General Eye ED: Negative for pale conjunctiva or scleral icterus Neck no JVD Resp normal respiratory effort and clear to auscultation bilaterally Resp Narrative: No pain with a deep breath Auscultation: Negative for rales, rhonchi or wheezes Cardio regular rate, regular rhythm and no murmurs GI normal to inspection, nondistended, normoactive bowel sounds, soft to palpation and non-tender Back/Spine normal to inspection Back/Spine Narrative: Patient does have some paraspinal tenderness but in the lumbar area mostly in the right. He states he feels a little bit on the left but its mostly all on the right. No central tenderness. This is really in the mid lumbar area. No acute skin changes noted. Extremity normal to inspection and no clubbing, cyanosis or edema Neuro oriented x3 Psych mental status grossly normal Skin no rashes or lesions noted MDM MDM MDM Narrative Medical decision making narrative: Patient's history exam is very consistent with musculoskeletal back pain. He really does not have any red flags of back pain. He has normal sensation reflexes no bowel bladder dysfunction no recent infections or fevers. No acute trauma. I do not think imaging is needed. We did EKG because he had a history of some back discomfort with an [place]. But that back pain was much higher up different and accompanied with chest pain and dyspnea. This back pain is low and not having any of the other symptoms. His EKG is unchanged. I am a little concerned about putting this patient on Naprosyn. He has a history of diabetes and heart disease. He is also already on Plavix and aspirin. For this reason I will use short prescription for narcotic. His last narcotic prescription was over a year ago. I think he is in pain but not seeking pain meds. I will also use muscle relaxant. Prescription for narcotic. His last narcotic prescription was over a year ago. I think he is in pain but not seeking pain meds. I will also use muscle relaxant. 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 EKG Initial EKG: Comments: EKG was done with history of heart disease. EKG read by me shows normal sinus rhythm with a rate of 77. No ventricular ectopy. There is no acute ST elevation or depression. MS interval, QRS duration and QTc is normal. This EKG is also quite similar to her prior from 08 November 2019. Discharge Plan Triage Chief Complaint: Back ED Provider: Ramón Sibley Dx/Rx/DC Orders Clinical Impression: Lumbar strain Instructions: ED Back Sprain/Strain Prescriptions: New cyclobenzaprine 10 mg tablet 10 mg PO BID PRN (Reason: muscle spasm) Qty: 10 0RF hydrocodone-acetaminophen 5-325 mg tablet 1 tab PO Q6H PRN (Reason: pain) 3 Days Qty: 10 0RF No Action aspirin [Adult Low Dose Aspirin] 81 mg tablet,delayed release (DR/EC) 81 mg PO DAILY clopidogrel 75 mg tablet 75 mg PO DAILY Qty: 30 11RF lisinopril 5 mg tablet 5 mg PO DAILY Qty: 30 11RF nitroglycerin 0.4 mg tablet, sublingual 0.4 mg SUBLINGUAL Q5-15M PRN (Reason: Cardiac/Chest Pain) Qty: 25 3RF rosuvastatin 10 mg tablet 10 mg PO DAILY Qty: 30 11RF cyclobenzaprine 5 mg tablet 5 mg PO QHS hydrocodone-acetaminophen [[place]] 5-325 mg tablet 1 tab PO QHS glimepiride 4 MG tablet 4 mg PO BID Label Comments: GLUCOSE metformin 500 mg tablet 1,000 mg PO BIDCM naproxen 500 MG tablet 500 mg PO BID PRN (Reason: Pain Score 4-10/10) Qty: 10 0RF hydrocortisone [Anusol-HC] 2.5 % cream with perineal applicator 1 applic MS QHS PRN (Reason: hemorrhoids) Qty: 30 0RF sennosides [senna] 8.6 mg tablet 8.6 mg PO DAILY PRN (Reason: constipation) Qty: 14 0RF Primary Care Provider: Srinath Samuels Referrals: Srinath Samuels, DO [Primary Care Provider] - 3-5 Days if not improving Disposition Disposition: Home, Self Care
[2022-04-09] MEDS: oxyCODONE 5 MG Tablet PO (07:10)
[2022-04-09 07:11] VITALS: BP 130/86; PULSE 75; RESP 16; O2SAT 97
== END 2022-04-09 07:12 | disposition home or self-care (01) ==
PROVIDERS: Emergency Provider Emergency Medicine; PCP Student in an Organized Health Care Education/Training Program; Visit Provider Emergency Medicine
DX: S39.012A Strain of muscle, fascia and tendon of lower back, initial encounter (principal); E11.9 Type 2 diabetes mellitus without complications; X58.XXXA Exposure to other specified factors, initial encounter; Y99.0 Civilian activity done for income or pay; R07.9 Chest pain, unspecified; I25.10 Atherosclerotic heart disease of native coronary artery without angina pectoris; I10 Essential (primary) hypertension; E78.5 Hyperlipidemia, unspecified; G89.29 Other chronic pain; F17.210 Nicotine dependence, cigarettes, uncomplicated; I25.2 Old myocardial infarction; Z79.82 Long term (current) use of aspirin; Z79.84 Long term (current) use of oral hypoglycemic drugs; Z79.02 Long term (current) use of antithrombotics/antiplatelets; Z79.1 Long term (current) use of non-steroidal anti-inflammatories (NSAID); Z95.5 Presence of coronary angioplasty implant and graft
CPT/HCPCS: 93005; 99283

== ENCOUNTER 2023-04-26 20:47 | Emergency (ER) | payer OTHER, SELFPAY ==
[2023-04-26 20:47] VITALS: BP 158/84; PULSE 63; RESP 16; TEMP 36.4; O2SAT 100; BMI 25.2
--- NOTE | 2023-04-26 20:59 | ED.VIS.DENTA ---
HPI History of Present Illness Chief Complaint: Dental Informant: patient Onset/Context/Timing Onset: Today Context: Sudden Onset Timing: Continuous Current Severity: 05/30 Maximum Severity: 05/30 Narrative Narrative: Patient states he has had mandibular frontal tooth ache for the last few hours. Started spontaneously. States he had chronic issues with some of his teeth. No obvious cause of this. No fevers or chills or bleeding or discharge. [facility] Medical History Acute [place], anterolateral wall (2011) Atherosclerotic heart disease of [place] coronary artery without angina pectoris Chronic back pain Chronic back pain Coronary artery disease Diabetes Diabetes mellitus type II Essential hypertension Femoral artery occlusion, right Heart disease Hyperlipidemia Pain of right calf Type 2 diabetes mellitus Home Medications glimepiride 4 mg tablet 4 mg PO BID DM 01/23/14 [History Last Taken 01/25/19] aspirin 81 mg tablet,delayed release (Adult Low Dose Aspirin) 81 mg PO DAILY BLOOD THINNER 07/11/18 [History Last Taken 01/25/19] metformin 500 mg tablet 1,000 mg PO BIDCM DM 07/11/18 [History Last Taken 01/25/19] clopidogrel 75 mg tablet 75 mg PO DAILY HEART #30 tabs 08/14/19 [Rx Last Taken Unknown] lisinopril 5 mg tablet 5 mg PO DAILY HTN #30 tabs 08/14/19 [Rx Last Taken Unknown] nitroglycerin 0.4 mg sublingual tablet 0.4 mg sublingual Q5-15M PRN Cardiac/Chest Pain #25 tabs 08/14/19 [Rx Last Taken Unknown] rosuvastatin 10 mg tablet 10 mg PO DAILY CHOLESTEROL #30 tabs 08/14/19 [Rx Last Taken Unknown] cyclobenzaprine 5 mg tablet 5 mg PO QHS 08/16/19 [History Last Taken Unknown] hydrocodone-acetaminophen 5-325mg 5mg-325mg ([place]) 1 tab PO QHS 08/16/19 [History Last Taken Unknown] naproxen 500 mg tablet 500 mg PO BID PRN Pain Score 4-10/10 #10 tabs 05/14/20 [Rx Last Taken Unknown] hydrocortisone 2.5 % topical cream with perineal applicator (Anusol-HC) 1 applic [place] QHS PRN hemorrhoids #30 grams 06/17/21 [Rx Last Taken Unknown] sennosides 8.6 mg tablet (senna) 8.6 mg PO DAILY PRN constipation #14 tabs 06/17/21 [Rx Last Taken Unknown] cyclobenzaprine 10 mg tablet 10 mg PO BID PRN muscle spasm #10 tabs 04/09/22 [Rx Last Taken Unknown] hydrocodone-acetaminophen 5-325mg 5mg-325mg 1 tab PO Q6H PRN pain 3 days #10 tabs 04/09/22 [Rx Last Taken Unknown] clindamycin HCl 150 mg capsule 300 mg (2 x 150 mg) PO 4X/DAY #80 CAPSULES 04/26/23 [Rx Last Taken Unknown] hydrocodone-acetaminophen 5-325mg 5mg-325mg 1 tab PO Q4H PRN PRN Pain 2 days #10 TABLETS 04/26/23 [Rx Last Taken Unknown] Allergy/AdvReac Type Severity Reaction Status Date / Time sertraline Allergy Severe Rash Verified 04/26/23 20:48 Penicillins Allergy Unknown Verified 04/26/23 20:48 Beta-Blockers AdvReac Severe Other Verified 04/26/23 20:48 (Beta-Adrenergic Bloc Family History Father CAD (coronary artery disease) Myocardial infarction, Onset Age: 45 CVA (cerebral vascular accident) Uncle Myocardial infarction, Onset Age: 40 Other Diabetes Heart disease Surgical History Femoral artery occlusion, left History of heart artery stent Presence of coronary angioplasty implant and graft s/p right apll Social History Smoking Status: Current every day smoker tobacco type: cigarettes second hand exposure: Yes alcohol intake: never substance use type: does not use caffeine: Yes what type of physical activity do you participate in: none frequency: does not exercise seatbelt use: always ROS ROS ED Constitutional Constitutional ED: Denies chills or fever(s) Eyes Eyes: Denies change in vision or double vision ENT ENT ED: Reports dental pain; Denies sinus pain or throat swelling Cardiovascular Cardiovascular: Denies chest pain or palpitations Respiratory/Chest Respiratory/Chest: Denies cough or dyspnea Integumentary Denies abscess or rash Neurologic Neurologic: Denies headache(s), paresthesias or weakness EXAM Physical Exam Const Vital Signs: 04/26/23 20:47 Temperature 97.5 F L Temperature Source Temporal Pulse Rate 63 Respiratory Rate 16 Blood Pressure 158/84 H Blood Pressure Mean 108 Pulse Ox 100 Oxygen Delivery Method Room Air Positive well nourished and well developed General Appearance ED: well developed and NAD HEENT HEENT Narrative: Patient has mild loosening of both mandibular frontal incisors, when asked which one hurts he states the front 1, he states they are both tender. There is no bleeding or abscess. The floor the mouth is soft and nondistended. Normal tongue no elevation. No trismus. Relatively poor dentition overall. Face and Sinus: sinuses nontender Throat: posterior oropharynx normal Eyes PERRL and EOMs intact bilaterally Neck no lymphadenopathy and supple Resp normal respiratory effort Neuro oriented x3 and CN's II-XII intact bilaterally Sensorium / Orientation: alert Gait (Neuro): normal gait Psych mental status grossly normal and thought process normal Skin no rashes or lesions noted and no wounds MDM MDM MDM Narrative Medical decision making narrative: Checked an [facility] report on this patient no recent narcotics. Will prescribe him short course of analgesics, as well as clindamycin since he has a penicillin allergy and advised close outpatient dental follow-up which I encouraged. He said his main concern tonight is that he did not want the infection to go to my heart. I reassured him that dental infections do not typically do that, it is when you have dental work and they penetrate the periodontal lining that you are at a higher risk of that, but I have no problem putting him on antibiotics to prophylax against an abscess. Discharge Plan Triage Chief Complaint: Dental ED Provider: Fidencio Guerrero Dx/Rx/DC Orders Clinical Impression: Pain, dental Instructions: ED Dental Pain Prescriptions: New hydrocodone-acetaminophen [hydrocodone-acetaminophen] 5-325 mg tablet 1 tab PO Q4H PRN PRN (Reason: Pain) 2 Days Qty: 10 0RF clindamycin HCl 150 mg capsule 300 mg PO 4X/DAY Qty: 80 0RF No Action aspirin [Adult Low Dose Aspirin] 81 mg tablet,delayed release (DR/EC) 81 mg PO DAILY clopidogrel 75 mg tablet 75 mg PO DAILY Qty: 30 11RF lisinopril 5 mg tablet 5 mg PO DAILY Qty: 30 11RF nitroglycerin 0.4 mg tablet, sublingual 0.4 mg SUBLINGUAL Q5-15M PRN (Reason: Cardiac/Chest Pain) Qty: 25 3RF rosuvastatin 10 mg tablet 10 mg PO DAILY Qty: 30 11RF cyclobenzaprine 5 mg tablet 5 mg PO QHS hydrocodone-acetaminophen [[place]] 5-325 mg tablet 1 tab PO QHS glimepiride 4 MG tablet 4 mg PO BID Patient Comments: GLUCOSE metformin 500 mg tablet 1,000 mg PO BIDCM naproxen 500 MG tablet 500 mg PO BID PRN (Reason: Pain Score 4-10/10) Qty: 10 0RF hydrocortisone [Anusol-HC] 2.5 % cream with perineal applicator 1 applic [place] QHS PRN (Reason: hemorrhoids) Qty: 30 0RF sennosides [senna] 8.6 mg tablet 8.6 mg PO DAILY PRN (Reason: constipation) Qty: 14 0RF cyclobenzaprine 10 mg tablet 10 mg PO BID PRN (Reason: muscle spasm) Qty: 10 0RF hydrocodone-acetaminophen 5-325 mg tablet 1 tab PO Q6H PRN (Reason: pain) 3 Days Qty: 10 0RF Primary Care Provider: Srinath Samuels Referrals: Srinath Samuels DO [Primary Care Provider] - Dentist,Your [STAFF PHYSICIAN] - As soon as possible (See attached resource list if needed) Disposition Disposition: Home, Self Care
[2023-04-26] MEDS: Ibuprofen 600 MG Tablet PO (21:19)
== END 2023-04-26 21:21 | disposition home or self-care (01) ==
LOC: ED 21:12
PROVIDERS: Emergency Provider Emergency Medicine; PCP Student in an Organized Health Care Education/Training Program; Visit Provider Emergency Medicine
DX: K08.89 Other specified disorders of teeth and supporting structures (principal); E11.9 Type 2 diabetes mellitus without complications; I25.10 Atherosclerotic heart disease of native coronary artery without angina pectoris; I10 Essential (primary) hypertension; E78.5 Hyperlipidemia, unspecified; M54.9 Dorsalgia, unspecified; F17.210 Nicotine dependence, cigarettes, uncomplicated; Z79.84 Long term (current) use of oral hypoglycemic drugs; Z79.02 Long term (current) use of antithrombotics/antiplatelets; Z79.899 Other long term (current) drug therapy
CPT/HCPCS: 99282

== ENCOUNTER → 2024-03-01 | Outpatient (CLI) | payer OTHER, SELFPAY ==
--- NOTE | 2024-03-01 13:44 | VDLE_ITS ---
Reason For Study: RLE Pain / Injury RIGHT LEFT Unable to visualize GSV CFV is compressible, spontaneous, phasic, HX Fem-POP BPG. competent, and demonstrates normal CFV is compressible, spontaneous, phasic, augmentation. competent and demonstrates normal augmentation. FV is compressible, spontaneous, phasic, competent and demonstrates normal augmentation. POP V is compressible, spontaneous, phasic, competent and demonstrates normal augmentation. T/P Trunk is compressible. PTV is compressible. RT PerV is compressible. Procedure This is a venous duplex using B-mode, color flow and spectral Doppler. Exam performed portable in patient room. The exam was diagnostic. A preliminary report was called and/or faxed to office of Silvia Andrews NP. VL/Venous Duplex US, Unilateral Interpretation Summary There is no evidence of right lower extremity deep vein thrombosis. Able to vis ualize the right great saphenous vein as the patient has a history of femoral-popliteal bypass g raft. Normal flow patterns left common femoral vein Ordering Physician: Silvia Andrews Referring Physician: Garrison. Yo Performed By: Luke Busby RVT and Student
== END | disposition home or self-care (01) ==
LOC: CVS 13:42
PROVIDERS: PCP Student in an Organized Health Care Education/Training Program; Referring Provider Nurse Practitioner Family; Visit Provider Nurse Practitioner Family
DX: T14.8XXA Other injury of unspecified body region, initial encounter (principal); R23.3 Spontaneous ecchymoses; I70.209 Unspecified atherosclerosis of native arteries of extremities, unspecified extremity; Z95.828 Presence of other vascular implants and grafts
CPT/HCPCS: 93971

== ENCOUNTER 2024-06-14 10:06 | Emergency (ER) | payer OTHER, SELFPAY ==
[2024-06-14] VITALS (9 sets, daily range): BP systolic 102–140; BP diastolic 63–85; PULSE 63–77; RESP 11–18; TEMP 35.8–36.8; O2SAT 96–98; BMI 25.7
--- NOTE | 2024-06-14 10:12 | EKG12_ITS ---
Test Reason : CP Blood Pressure : / mmHG Vent. Rate : 068 BPM Atrial Rate : 068 BPM P-R Int : 134 ms QRS Dur : 084 ms QT Int : 386 ms P-R-T Axes : 000 052 033 degrees QTc Int : 410 ms Normal sinus rhythm Normal ECG Confirmed by Saravanan Tom ([id number]), manager editorial VERNA LIANG ([id number]) on 06/16/2024 9:46:14 AM Referred By: ANTONI/ELBA Confirmed By:Saravanan Tom
[2024-06-14 10:23] LABS: Absolute Neutrophil Count 11.6 X10^3/uL (2.0-7.7); Basophil# 0.09 X10^3/uL; Basophil% 0.6 % (0-1); Eosinophil# 0.15 X10^3/uL; Hemoglobin 14.6 g/dL (13.0-16.5); Lymphocyte % 11.7 % (19-41); Mean Corp Hgb Conc 33.2 g/dL (32-36); Mean Corpuscular Hgb 31.7 pg (27.0-32.0); Mean Corpuscular Volume 95.4 fL (80-94); Mean Platelet Vol. 9.1 fl (6.2-12.0); Monocyte# 0.99 X10^3/uL; Monocyte% 6.8 % (0-10); NRBC Flagged by Analyzer 0 % (0-5); Neutrophil # 11.58 X10^3/uL (2.7-7.7); Neutrophil % 79.4 % (47-70); Platelet Count 307 K/mm3 (150-450); RBC Distribution Width CV 13.2 % (11.6-14.6); RBC Distribution Width SD 46.2 fl (35.1-43.9); Red Blood Count 4.61 M/mm3 (4.6-6.2); White Blood Count 14.6 K/mm3 (4.4-11.0)
--- NOTE | 2024-06-14 10:27 | RAD_ITS ---
STUDY: X-RAY CHEST REASON FOR EXAM: Male, 48 years old. Chest pain TECHNIQUE: PA and lateral views of the chest. COMPARISON: Comparison is made with prior study November 08, 2019. FINDINGS: The lungs are clear and expanded. There is no demonstrated pleural abnormality. Normal size heart. Normal mediastinum and pj. Normal visualized pulmonary arteries. Normal visualized aortic arch and descending thoracic aorta. Normal visualized thoracic spine. Normal visualized ribs, clavicles, and shoulders. There is no demonstrated abnormality of the visualized soft tissue structures of the upper abdomen. RAD/Chest PA and Lateral IMPRESSION: Normal x-ray examination of the chest. Electronically Signed: Puneet Ross MD at 10:46 EDT ,
[2024-06-14 10:41] LABS: Anion Gap 5 (5-15); BUN 18 mg/dL (7-18); BUN/Creat Ratio 18.6 RATIO (10-20); Calcium,Total 9.2 mg/dL (8.5-10.1); Chloride 107 mmol/L (98-107); Creatinine, Serum 0.97 mg/dL (0.70-1.30); EST Glomerular Filtration Rate 88 mL/min (>60); Est Glom Filt Rate - Afr Amer 106 mL/min (>60); Estimated Creatinine Clearance 95.12 ml/min; Glucose 224 mg/dL (74-106); Potassium 4.2 mmol/L (3.5-5.1); Sodium Level 136 mmol/L (136-145); Troponin-I HS (w/2H Reflex) 4 pg/mL (3.0-78.0)
--- NOTE | 2024-06-14 10:45 | ED.VIS.CHEST ---
HPI History of Present Illness Chief Complaint: Chest Pain Narrative Narrative: Patient is a 48-year-old male past medical history hypertension, hyperlipidemia, tobacco use, type 2 diabetes, CAD with stents who presents to the [facility] with chief complaint of chest pain. 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 He states that pain will somewhat improve with rest. He states that he has not had a cardiac workup in a significant mount time. [facility] Medical History Hyperlipidemia Essential hypertension Acute [place], anterolateral wall (2011) Chronic back pain Atherosclerotic heart disease of [place] coronary artery without angina pectoris Type 2 diabetes mellitus Femoral artery occlusion, right Pain of right calf Diabetes Heart disease Diabetes mellitus type II Coronary artery disease Chronic back pain Home Medications ?Medication ?Instructions ?Recorded ?Last Taken ?Type glimepiride 4 mg tablet 4 mg PO BID DM 01/23/14 01/25/19 History aspirin 81 mg tablet,delayed 81 mg PO DAILY BLOOD THINNER 07/11/18 01/25/19 History release (Adult Low Dose Aspirin) metformin 500 mg tablet 1,000 mg PO BIDCM DM 07/11/18 01/25/19 History clopidogrel 75 mg tablet 75 mg PO DAILY HEART #30 tabs 08/14/19 Unknown Rx nitroglycerin 0.4 mg sublingual 0.4 mg sublingual Q5-15M PRN 08/14/19 Unknown Rx tablet Cardiac/Chest Pain #25 tabs rosuvastatin 10 mg tablet 10 mg PO DAILY CHOLESTEROL #30 tabs 08/14/19 Unknown Rx cyclobenzaprine 5 mg tablet 5 mg PO QHS 08/16/19 Unknown History sennosides 8.6 mg tablet (senna) 8.6 mg PO DAILY PRN constipation 06/17/21 Unknown Rx #14 tabs cyclobenzaprine 10 mg tablet 10 mg PO BID PRN muscle spasm #10 04/09/22 Unknown Rx tabs bupropion HCl 300 mg 24 hr tablet, 300 mg PO QAM 06/02/24 Unknown History extended release (Wellbutrin XL) cilostazol 50 mg tablet 50 mg PO BID #60 tabs 06/02/24 Unknown Rx citalopram 40 mg tablet (Celexa) 40 mg PO QDAY 06/02/24 Unknown History insulin glargine 100 unit/mL (3 28 unit subcut QDAY 06/02/24 Unknown History mL) subcutaneous pen, sensor lorazepam 1 mg tablet (Ativan) 1.5 mg PO BID PRN 06/02/24 Unknown History pioglitazone 15 mg tablet (Actos) 15 mg PO QDAY 06/02/24 Unknown History Allergy/AdvReac Type Severity Reaction Status Date / Time sertraline Allergy Severe Rash Verified 06/14/24 10:07 Penicillins Allergy Unknown Verified 06/14/24 10:07 Beta-Blockers AdvReac Severe Other Verified 06/14/24 10:07 (Beta-Adrenergic Bloc Family History Father CAD (coronary artery disease) Myocardial infarction, Onset Age: 45 CVA (cerebral vascular accident) Uncle Myocardial infarction, Onset Age: 40 Other Diabetes Heart disease Surgical History s/p right apll Presence of coronary angioplasty implant and graft Femoral artery occlusion, left History of heart artery stent Social History Smoking Status: Current every day smoker tobacco type: cigarettes second hand exposure: Yes alcohol intake: never substance use type: does not use caffeine: Yes what type of physical activity do you participate in: none frequency: does not exercise seatbelt use: always ROS ROS ED ROS Narrative Constitutional: Denies any fevers, chills, headaches, lightness, dizziness Eyes: Denies change in vision double vision blurry vision Cardiovascular: Complains of chest pain as noted above denies palpitations Respiratory: Denies coughing wheezing shortness of breath Abdomen: Denies abdominal pain nausea vomit diarrhea : Denies any urinary symptoms Neurological: Denies numbness, and some tingling Musculoskeletal: Complains of back discomfort as noted above Skin: Denies rashes or lesions EXAM Physical Exam Narrative Exam Narrative: General: Patient lying in bed rest comfortably did not appear to be in acute distress Head: Atraumatic, normocephalic Eyes: PERRL bilaterally, EOMI bilateral, no conjunctival injection noted Neck: Soft, supple, trachea midline Cardiovascular: Regular rate and rhythm no murmurs gallops rubs noted Respiratory: Clear to auscultation bilaterally no rales rhonchi or wheezes noted Abdomen: Soft, nondistended, nontender to palpation Extremities: +5/5 strength noted in the bilateral upper and lower extremities, radial pulses +2/4 in the bilateral per extremities Neurological: Patient following commands knew that he was at [facility] year is 2023 Skin: Warm, dry, intact Const Vital Signs: 06/14/24 10:07 06/14/24 10:51 06/14/24 10:52 Temperature 96.5 F L Temperature Source Temporal Pulse Rate 77 71 Respiratory Rate 18 Blood Pressure 140/79 H 124/74 H Blood Pressure Mean 99 Pulse Ox 98 96 Oxygen Delivery Method Room Air Room Air 06/14/24 11:06 06/14/24 12:00 06/14/24 13:00 Temperature Temperature Source Pulse Rate 71 74 64 Respiratory Rate 16 13 14 Blood Pressure 125/75 H 125/75 H 111/80 Blood Pressure Mean 91 91 89 Pulse Ox 97 97 Oxygen Delivery Method 06/14/24 14:00 06/14/24 15:00 Temperature Temperature Source Pulse Rate 63 64 Respiratory Rate 11 L 16 Blood Pressure 116/85 H 112/72 Blood Pressure Mean 96 85 Pulse Ox 98 96 Oxygen Delivery Method MDM MDM MDM Narrative Medical decision making narrative: Patient is a 48-year-old male who presents to the emergency department with a chief complaint of chest pain. Patient will have workup performed here on the differential diagnose includes Melamin to ACS, stable angina, pneumonia, respiratory factor second viral etiology. Once workup is obtained reviewed he will be reevaluated. Patient will be given nitroglycerin. She came 3 weeks now patient CBC reviewed and was significant leukocytosis of 14,000, could be reactive, hemoglobin 14.6, platelet count was noted be normal at 307. Patient's sodium normal at 136, potassium 4.2, creatinine normal at 0.97. Patient's troponin normal at 4 with a delta troponin obtained normal at 3 his EKG reviewed and showed sinus rhythm with a rate of 68 bpm this was independently interpreted by myself. Patient's chest x-ray reviewed and showed no acute cardiopulmonary processes this was reviewed by myself and by the radiologist. On reevaluation of the patient today nitroglycerin did not help his pain however he was requesting more pain medication he was given Toradol this significantly improved his pain. He states that once again his pain seems to worsen with bending and moving. Did discuss case with dynamite packing machine operator Dr. Tom who came down and evaluate the patient at bedside and states that he will follow-up with him in the outpatient setting and obtain a stress test with him in the outpatient setting. Patient is agreeable this plan he would like to go home at this point in time. He is encouraged to return with worsening symptoms or other concerns. All question concerns answered he is discharged home in stable condition. Lab Data Labs: Laboratory Results - last 24 hr 06/14/24 06/14/24 10:15 12:25 WBC 14.6 H RBC 4.61 Hgb 14.6 Hct 44.0 MCV 95.4 H MCH 31.7 MCHC 33.2 RDW Std Deviation 46.2 H RDW Coeff of Miriam 13.2 Plt Count 307 MPV 9.1 Immature Gran % (Auto) 0.500 Neut % (Auto) 79.4 H Lymph % (Auto) 11.7 L [place] % (Auto) 6.8 Eos % (Auto) 1.0 Baso % (Auto) 0.6 Absolute Neuts (auto) 11.6 H Absolute Lymphs (auto) 1.70 Nucleated RBC % 0 Sodium 136 Potassium 4.2 Chloride 107 Carbon Dioxide 24.0 Anion Gap 5 BUN 18 Creatinine 0.97 Estim Creat Clear Calc 95.12 Est GFR (MDRD) Af Amer 106 Est GFR (MDRD) Non-Af 88 BUN/Creatinine Ratio 18.6 Glucose 224 H Calcium 9.2 Troponin I High Sens 4 3 Radiography Diagnostic Testing: Clinical Impression(s) from Imaging Studies Chest X-Ray 06/14/24 10:27 IMPRESSION: Normal x-ray examination of the chest. Electronically Signed: Puneet Ross MD at 10:46 EDT , Discharge Plan Triage Chief Complaint: Chest Pain ED Provider: Hilario Burnette Dx/Rx/DC Orders Clinical Impression: Chest pain Prescriptions: No Action aspirin [Adult Low Dose Aspirin] 81 mg tablet,delayed release (DR/EC) 81 mg PO DAILY clopidogrel 75 mg tablet 75 mg PO DAILY Qty: 30 11RF nitroglycerin 0.4 mg tablet, sublingual 0.4 mg SUBLINGUAL Q5-15M PRN (Reason: Cardiac/Chest Pain) Qty: 25 3RF rosuvastatin 10 mg tablet 10 mg PO DAILY Qty: 30 11RF cyclobenzaprine 5 mg tablet 5 mg PO QHS cilostazol 50 mg tablet 50 mg PO BID Qty: 60 2RF glimepiride 4 MG tablet 4 mg PO BID Patient Comments: GLUCOSE metformin 500 mg tablet 1,000 mg PO BIDCM sennosides [senna] 8.6 mg tablet 8.6 mg PO DAILY PRN (Reason: constipation) Qty: 14 0RF cyclobenzaprine 10 mg tablet 10 mg PO BID PRN (Reason: muscle spasm) Qty: 10 0RF Primary Care Provider: Srinath Samuels Referrals: Srinath Samuels DO [Primary Care Provider] - Saravanan Tom MD [Med Staff - Active Staff] - Activity Restrictions/Additional Instructions: Follow-up with Dr. Tom dynamite packing machine operator in outpatient setting they are referred to for your outpatient stress test. Return with worsening symptoms or other concerns. Take ibuprofen and Tylenol for pain control. Print Language: Swedish Disposition Disposition: Home, Self Care
[2024-06-14] MEDS: Nitroglycerin SL (ED/IMG/CATH) 0.4 MG TABLET SL (10:51)
[2024-06-14 12:19] LABS: Reflex Troponin-HS? (from REC) Y
[2024-06-14 12:46] LABS: Troponin-I HS 3 pg/mL (3.0-78.0)
[2024-06-14] MEDS: Ketorolac 30 MG/ML Syringe IV (13:28)
--- NOTE | 2024-06-14 15:45 | CON.PCM.CA_ITS ---
Assessment & Plan Assessment/Plan (1) Atherosclerotic heart disease of [place] coronary artery without angina pectoris: QUALIFIERS: [place] vs. transplanted heart: [place] heart Qualified Code(s): I25.10 - Atherosclerotic heart disease of [place] coronary artery without angina pectoris PLAN: Patient status post stenting of the OM branch of the circumflex and the mid right coronary artery in 2011 and 2013 respectively. The patient's current chest discomfort is different than what he experienced with his angina. He does not have any diaphoresis and the location of the pain is much lower on his chest wall. His current chest discomfort was relieved with Toradol. His cardiac isoenzymes high-sensitivity troponins were negative x 2 sets at 4 and 3. I would recommend that the patient continue his current medical therapy and risk factor modifications. He does continue to smoke. He has had a recent issues with of 2 members in his family 1 of which was his recently. The patient was instructed to follow-up with outpatient Lexiscan Cardiolite stress testing and to see Dr. Tom in the office in about 3 to 4 weeks. Further treatment and intervention for his presumed noncardiac chest pain will be deferred to the emergency department physicians. 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 He is instructed to follow-up with them for close management. (3) Peripheral arterial disease: PLAN: Patient is followed by Dr. Isaac Pulido's office for his peripheral vascular disease he was recently evaluated and scheduled for routine surveillance. (4) Hyperlipidemia: QUALIFIERS: Hyperlipidemia type: unspecified Qualified Code(s): E 78.5 - Hyperlipidemia, unspecified PLAN: Patient's lipids historically been managed by the primary service he is on rosuvastatin 10 mg daily. His target LDL should be less than 70. (5) Essential hypertension: PLAN: Patient's blood pressure is well-controlled on his current medical therapy in the emergency department. PLAN: Plan 1. Schedule Lexiscan Cardiolite stress test as an outpatient. 2. Follow-up with Dr. Tom in his office in 3 to 4 weeks. The patient was given a card and asked to call the office tomorrow morning for an appointment. HPI Consult Data Date of Consult: 06/14/24 HPI Narrative Reason for Consultation: Chest pain HPI Narrative: FRANCISCO ESCAMILLA, is a 48 M who presents with a history of left-sided chest discomfort that really starts around the left lower rib cage in his back and radiates around to the front. This is more intense with movement and deep breathing. It does increase when he walked a flight of stairs which she has to do slowly. The patient's cardiac enzymes are negative x 2 sets it for an 3. And his chest symptoms got much better after Toradol. Patient is EKG shows sinus rhythm at 68 bpm and is normal. The patient does have a history of peripheral vascular disease was recently seen June 02, [address] Pulido's office. He has a history of stenting and subsequent femoropopliteal bypass of his right lower extremity and recent noninvasive surveillance revealed a patent graft. His ABIs were acceptable in both the right and left lower extremity. The patient also has a history of coronary artery disease status post remote stenting the last stent was done here at [facility] by Dr. Elvis Mike in 2013. Patient's original stent in 2011 was to the circumflex at [facility] his second stent in the right coronary artery was at [facility] by Dr. Mike in 2013. The patient reports that his symptoms at that time were different than what he is experiencing today. The patient has a family history of coronary disease, he continues to smoke, he has a history of hyperlipidemia and hypertension. He is intolerant to beta- fadi therapy due to AV block. He is diabetic on medical therapy. He remains on Plavix and aspirin related to his lower extremity peripheral vascular disease. The patient does report that his bilateral lower extremity discomfort occurs at rest when he is in the seated position but also can occur with activity he does have problems walking a flight of stairs. At this time the patient reports that he is much more comfortable and is sitting up on the side of the gurney in the emergency department. [facility] Medical History Hyperlipidemia Essential hypertension Acute [place], anterolateral wall (2011) Chronic back pain Atherosclerotic heart disease of [place] coronary artery without angina pectoris Type 2 diabetes mellitus Femoral artery occlusion, right Pain of right calf Diabetes Heart disease Diabetes mellitus type II Coronary artery disease Chronic back pain Home Medications ?Medication ?Instructions ?Recorded ?Last Taken ?Type glimepiride 4 mg tablet 4 mg PO BID DM 01/23/14 01/25/19 History aspirin 81 mg tablet,delayed 81 mg PO DAILY BLOOD THINNER 07/11/18 01/25/19 History release (Adult Low Dose Aspirin) metformin 500 mg tablet 1,000 mg PO BIDCM DM 07/11/18 01/25/19 History clopidogrel 75 mg tablet 75 mg PO DAILY HEART #30 tabs 08/14/19 Unknown Rx nitroglycerin 0.4 mg sublingual 0.4 mg sublingual Q5-15M PRN 08/14/19 Unknown Rx tablet Cardiac/Chest Pain #25 tabs rosuvastatin 10 mg tablet 10 mg PO DAILY CHOLESTEROL #30 tabs 08/14/19 Unknown Rx cyclobenzaprine 5 mg tablet 5 mg PO QHS 08/16/19 Unknown History sennosides 8.6 mg tablet (senna) 8.6 mg PO DAILY PRN constipation 06/17/21 Unknown Rx #14 tabs cyclobenzaprine 10 mg tablet 10 mg PO BID PRN muscle spasm #10 04/09/22 Unknown Rx tabs bupropion HCl 300 mg 24 hr tablet, 300 mg PO QAM 06/02/24 Unknown History extended release (Wellbutrin XL) cilostazol 50 mg tablet 50 mg PO BID #60 tabs 06/02/24 Unknown Rx citalopram 40 mg tablet (Celexa) 40 mg PO QDAY 06/02/24 Unknown History insulin glargine 100 unit/mL (3 28 unit subcut QDAY 06/02/24 Unknown History mL) subcutaneous pen, sensor lorazepam 1 mg tablet (Ativan) 1.5 mg PO BID PRN 06/02/24 Unknown History pioglitazone 15 mg tablet (Actos) 15 mg PO QDAY 06/02/24 Unknown History Allergy/AdvReac Type Severity Reaction Status Date / Time sertraline Allergy Severe Rash Verified 06/14/24 10:07 Penicillins Allergy Unknown Verified 06/14/24 10:07 Beta-Blockers AdvReac Severe Other Verified 06/14/24 10:07 (Beta-Adrenergic Bloc Family History Father CAD (coronary artery disease) Myocardial infarction, Onset Age: 45 CVA (cerebral vascular accident) Uncle Myocardial infarction, Onset Age: 40 Other Diabetes Heart disease Surgical History s/p right apll Presence of coronary angioplasty implant and graft Femoral artery occlusion, left History of heart artery stent Social History Smoking Status: Current every day smoker tobacco type: cigarettes second hand exposure: Yes alcohol intake: never substance use type: does not use caffeine: Yes what type of physical activity do you participate in: none frequency: does not exercise seatbelt use: always ROS Constitutional Constitutional: Reports as per HPI Eyes Eyes: Reports systems reviewed and no addt'l complaints, except as documented ENT HEENT: Reports systems reviewed and no addt'l complaints, except as documented Cardiovascular Cardiovascular: Reports as per HPI Respiratory/Chest Respiratory/Chest: Reports as per HPI Gastrointestinal Gastrointestinal: Reports systems reviewed and no addt'l complaints, except as documented Genitourinary Genitourinary: Reports systems reviewed and no addt'l complaints, except as documented Musculoskeletal Musculoskeletal: Reports as per HPI Integumentary Integumentary: Reports systems reviewed and no addt'l complaints, except as documented Neurologic Neurologic: Reports as per HPI Psychiatric Psychiatric: Reports systems reviewed and no addt'l complaints, except as documented Endocrine Endocrinology: Reports systems reviewed and no addt'l complaints, except as documented Hematologic/Lymphatic Hematologic/Lymphatic: Reports systems reviewed and no addt'l complaints, except as documented Allergic/Immunologic Allergic/Immunologic: Reports systems reviewed and no addt'l complaints, except as documented Risk Stratification Risk Stratification Applicable: Yes Age >/= 65: No >/= 3 CAD Risk Factors (HTN, HLD, DM, family hx of CAD, or current smoker): Yes Aspirin Use in the Past 7 Days: Yes Severe Angina (>/= episodes in 24 hours): No EKG ST Changes >/= 0.5mm: No Positive Cardiac Marker: No GERMAN Risk Stratification Score: 2 GERMAN % Risk: 8% Risk Charges/Coding Visit Charges Inpatient E&M: 41902 Init Hosp L3 Objective Data Vital Signs: Vital Signs Temp Pulse Resp BP Pulse Ox O2 Del Method 96.5 F L 64 16 112/72 96 Room Air 06/14/24 10:07 06/14/24 15:00 06/14/24 15:00 06/14/24 15:00 06/14/24 15:00 06/14/24 10:52 Oxygen Delivery Method Room Air Weight: 179 lb 3.2 oz Body Mass Index (BMI) 25.7 Lab / Micro Data Attestation: I reviewed the patient's lab results. 06/14/24 10:15 06/14/24 10:15 Labs: Laboratory Results - last 24 hr 06/14/24 10:15: WBC 14.6 H, RBC 4.61, Hgb 14.6, Hct 44.0, MCV 95.4 H, MCH 31.7, MCHC 33.2, RDW Std Deviation 46.2 H, RDW Coeff of Miriam 13.2, Plt Count 307, MPV 9.1, Immature Gran % (Auto) 0.500, Neut % (Auto) 79.4 H, Lymph % (Auto) 11.7 L, [place] % (Auto) 6.8, Eos % (Auto) 1.0, Baso % (Auto) 0.6, Absolute Neuts (auto) 11.6 H, Absolute Lymphs (auto) 1.70, Nucleated RBC % 0, Sodium 136, Potassium 4.2, Chloride 107, Carbon Dioxide 24.0, Anion Gap 5, BUN 18, Creatinine 0.97, Estim Creat Clear Calc 95.12, Est GFR (MDRD) Af Amer 106, Est GFR (MDRD) Non-Af 88, BUN/Creatinine Ratio 18.6, Glucose 224 H, Calcium 9.2, Troponin I High Sens 4 06/14/24 12:25: Troponin I High Sens 3 Cardiology Labs/Tests 06/14/24 10:15: WBC 14.6 H, RBC 4.61, Hgb 14.6, Hct 44.0, MCV 95.4 H, MCH 31.7, MCHC 33.2, Plt Count 307, MPV 9.1, Immature Gran % (Auto) 0.500, Neut % (Auto) 79.4 H, Lymph % (Auto) 11.7 L, [place] % (Auto) 6.8, Eos % (Auto) 1.0, Baso % (Auto) 0.6, Absolute Neuts (auto) 11.6 H, Nucleated RBC % 0, Sodium 136, Potassium 4.2, Chloride 107, Carbon Dioxide 24.0, Anion Gap 5, BUN 18, Creatinine 0.97, Est GFR (MDRD) Af Amer 106, Est GFR (MDRD) Non-Af 88, BUN/Creatinine Ratio 18.6, Glucose 224 H, Calcium 9.2 Rhythm: EKG: ECHO: Stress Test: Cardiac Cath: PCI: CT Surgery: Holter monitor: EPS: PPM: CXR: Chest CT Scan: Radiography Diagnostic Testing: Radiology Impression Chest X-Ray 06/14/24 10:27 IMPRESSION: Normal x-ray examination of the chest. Electronically Signed: Puneet Ross MD at 10:46 EDT , EKG Initial EKG: Attestation: I personally reviewed and interpreted this EKG as follows: (EKG shows normal sinus rhythm and is normal.)
== END 2024-06-14 16:04 | disposition home or self-care (01) ==
PROVIDERS: Emergency Provider Emergency Medicine; PCP Student in an Organized Health Care Education/Training Program; Visit Provider Emergency Medicine
DX: R07.9 Chest pain, unspecified (principal); E11.51 Type 2 diabetes mellitus with diabetic peripheral angiopathy without gangrene; Z79.4 Long term (current) use of insulin; M54.9 Dorsalgia, unspecified; I44.30 Unspecified atrioventricular block; I25.10 Atherosclerotic heart disease of native coronary artery without angina pectoris; I10 Essential (primary) hypertension; E78.5 Hyperlipidemia, unspecified; G89.29 Other chronic pain; F17.210 Nicotine dependence, cigarettes, uncomplicated; Z79.82 Long term (current) use of aspirin; Z79.84 Long term (current) use of oral hypoglycemic drugs; Z79.02 Long term (current) use of antithrombotics/antiplatelets; Z95.5 Presence of coronary angioplasty implant and graft
CPT/HCPCS: 71046; 80048; 84484; 85025; 93005; 96374; 99284; A4216

== ENCOUNTER → 2024-06-28 | Outpatient (CLI) | payer OTHER, SELFPAY ==
--- NOTE | 2024-06-28 16:32 | STRESSREP ---
Stress Test Report Pharmacologic myocardial perfusion stress test. 48-year-old man with chest pain Resting EKG demonstrates sinus rhythm with a rate of 61 bpm. Resting blood pressure is 122/80 mmHg. 0.4 mg of regadenoson was infused per usual protocol followed by rapid intravenous saline flush injection. Continuous EKG monitoring was performed. The maximum heart rate was [78] bpm which was 45%of max impacted heart rate the maximum workload was 1 metabolic equivalent. At rest there were no ST or T wave changes noted to suggest ischemia and at peak infusion nonspecific ST changes were noted which did not meet the criteria for ischemia. No clinical angina is noted. The final blood pressure was 112/68mmHg. Myocardial perfusion protocol. 11.7 mCi of technetium 99m sestamibi was injected at rest. 0.4 mg of regadenoson was infused per usual protocol. At peak infusion 34 mCi of technetium 99m sestamibi was injected stress images were obtained stress and rest images were reconstructed and compared in the short axis vertical long and horizontal long axis. Gated images were also obtained. Perfusion SPECT analysis: Review of the stress images demonstrate normal uptake of tracer noted in all areas of the myocardium. The resting images similar demonstrated normal uptake of tracer noted in all areas of the myocardium. No areas of reversibility are noted to suggest ischemia and no previous infarct is noted. Gated SPECT analysis: The gated ejection fraction is 63%. Conclusion: Normal pharmacologic myocardial perfusion stress test. Preserved ejection fraction.
== END | disposition home or self-care (01) ==
PROVIDERS: PCP Student in an Organized Health Care Education/Training Program; Referring Provider Internal Medicine Cardiovascular Disease; Visit Provider Internal Medicine Cardiovascular Disease
DX: R07.9 Chest pain, unspecified (principal); I25.10 Atherosclerotic heart disease of native coronary artery without angina pectoris
CPT/HCPCS: 78452; 93017; A9500; A4216; J2785

== ENCOUNTER 2024-08-07 12:35 | Emergency (ER) | payer OTHER, SELFPAY ==
[2024-08-07 12:36] VITALS: BP 135/77; PULSE 67; RESP 20; TEMP 36.9; O2SAT 98; BMI 26.9
--- NOTE | 2024-08-07 12:45 | RAD_ITS ---
STUDY: X-RAY CHEST REASON FOR EXAM: Male, 48 years old. Chest pain TECHNIQUE: Single AP portable view of the chest. COMPARISON: Comparison is made with prior studies of August 14, 2024. FINDINGS: EKG electrodes are seen. Mild increased linear markings at the left lung base suggestive of either atelectasis and/or early infiltrate. There is no demonstrated pleural abnormality. Normal size heart. Normal mediastinum and pj. Normal visualized pulmonary arteries. Normal visualized aortic arch and descending thoracic aorta. Normal visualized thoracic spine. Normal visualized ribs, clavicles, and shoulders. There is no demonstrated abnormality of the visualized soft tissue structures of the upper abdomen. RAD/Chest 1 View (Portable) IMPRESSION: Mild increased linear markings at the left lung base as compared to prior study suggestive of either linear atelectasis and/or early infiltrate. Electronically Signed: Puneet Ross MD at 13:16 EST ,
--- NOTE | 2024-08-07 12:45 | EKG12_ITS ---
Test Reason : CP Blood Pressure : */* mmHG Vent. Rate : 64 BPM Atrial Rate : 64 BPM P-R Int : 144 ms QRS Dur : 80 ms QT Int : 382 ms P-R-T Axes : 10 56 52 degrees QTcB Int : 394 ms Normal sinus rhythm Normal ECG Confirmed by ELAN DOZIER, JEY ([id number]), managing editor ANITRA HERNANDEZ ([id number]) on 08/08/2024 1:51:28 PM Referred By: MALGORZATA/JASON Confirmed By: JEY ANSARI MD
[2024-08-07 12:53] VITALS: O2SAT 97
[2024-08-07 12:59] LABS: Absolute Lymphocyte Count 2.29 X10^3/uL (0.83-4.51); Absolute Neutrophil Count 6.4 X10^3/uL (2.0-7.7); Basophil# 0.06 X10^3/uL; Basophil% 0.6 % (0-1); Eosinophil# 0.15 X10^3/uL; Eosinophils% 1.6 % (0-5); Hematocrit 44.2 % (40-54); Hemoglobin 14.7 g/dL (13.0-16.5); Lymphocyte # 2.29 X10^3/ul (0.83-4.51); Lymphocyte % 23.8 % (19-41); Mean Corp Hgb Conc 33.3 g/dL (32-36); Mean Corpuscular Volume 96.1 fL (80-94); Mean Platelet Vol. 9.4 fl (6.2-12.0); Monocyte# 0.73 X10^3/uL; Monocyte% 7.6 % (0-10); NRBC Flagged by Analyzer 0 % (0-5); Neutrophil # 6.37 X10^3/uL (2.7-7.7); Platelet Count 303 K/mm3 (150-450); RBC Distribution Width CV 13.2 % (11.6-14.6); RBC Distribution Width SD 47.2 fl (35.1-43.9); White Blood Count 9.6 K/mm3 (4.4-11.0)
[2024-08-07 13:13] LABS: Anion Gap 3 (5-15); BUN 11 mg/dL (7-18); BUN/Creat Ratio 11.2 RATIO (10-20); Calcium,Total 8.8 mg/dL (8.5-10.1); Chloride 106 mmol/L (98-107); Creatinine, Serum 0.98 mg/dL (0.70-1.30); EST Glomerular Filtration Rate 86 mL/min (>60); Est Glom Filt Rate - Afr Amer 104 mL/min (>60); Estimated Creatinine Clearance 94.15 ml/min; Glucose 265 mg/dL (74-106); Sodium Level 136 mmol/L (136-145); Troponin-I HS (w/2H Reflex) 3 pg/mL (3.0-78.0)
[2024-08-07 13:43] VITALS: BP 122/74; PULSE 61; RESP 18; O2SAT 97
[2024-08-07 14:00] VITALS: BP 122/74; PULSE 62; RESP 19; O2SAT 98
--- NOTE | 2024-08-07 14:27 | ED.VIS.CHEST ---
HPI <Dr. Papito Weiner MD - Last Filed: 08/08/24 06:53> History of Present Illness Chief Complaint: Chest Pain Detail of Chief Complaint: Chest pain and throat pain that started at 12 noon Informant: patient Onset/Context/Timing Onset: Today and Hours Activity at onset: sudden Timing: Continuous Quality: Positive for Aching and Pain Location: Substernal (And neck anteriorly) Current Severity: Mild Maximum Severity: Moderate Worsened By: Nothing Relieved By: Nothing Associated Symptoms: Positive for Dyspnea; Negative for Nausea, Vomiting, Diaphoresis, Cough, Fever, Lightheadedness, Acid Reflux or Palpitations Narrative Narrative: Patient is a 48-year-old male with known history of coronary disease, peripheral arterial disease, hypertension, hyperlipidemia and continues to smoke. He had a recent Cardiolite stress test that was negative. He recently saw Dr. Saravanan Tom. The Cardiolite stress test results were reviewed as well as Dr. Tom's note. Patient states he developed chest pain anterior throat pain with shortness of breath that occurred during lunchtime. He had not had anything to eat. He presented here. He is concerned because this is similar to the pain he had when he had his heart attack. This is also somewhat and not as severe as the pain he had when he was seen in May and cardiac etiology was ruled out. Patient is on a baby aspirin and Plavix daily. He denies abdominal pain, black or maroon-colored stool. Patient denies chest pain with breathing. Patient denies history of VTE. Patient has no risk factors for VTE. He denies leg pain, swelling discoloration. Prior Similar Symptoms: Yes Recent Illness/Hospitalization: Yes (June 14.) CVD Risk Factors: Positive for Hypertension, Diabetes, Hypercholesterolemia and Smoking PE Risk Factors: Negative for Recent Travel/Surgery, Recent Immobilization, Prior DVT or PE, Cancer or OCP + Smoking + >/=35 TAD Risk Factors: Positive for Hypertension; Negative for Marfan's Syndrome or Family History [facility] <Dr. Papito Weiner MD - Last Filed: 08/08/24 06:53> [facility] Medical History Hyperlipidemia Essential hypertension Acute PR, anterolateral wall (2011) Chronic back pain Atherosclerotic heart disease of [place] coronary artery without angina pectoris Type 2 diabetes mellitus Femoral artery occlusion, right Pain of right calf Diabetes Heart disease Diabetes mellitus type II Coronary artery disease Chronic back pain Home Medications ?Medication ?Instructions ?Recorded ?Last Taken ?Type aspirin 81 mg tablet,delayed 81 mg PO DAILY BLOOD THINNER 07/11/18 01/25/19 History release (Adult Low Dose Aspirin) clopidogrel 75 mg tablet 75 mg PO DAILY HEART #30 tabs 08/14/19 Unknown Rx nitroglycerin 0.4 mg sublingual 0.4 mg sublingual Q5-15M PRN 08/14/19 Unknown Rx tablet Cardiac/Chest Pain #25 tabs cyclobenzaprine 5 mg tablet 5 mg PO QHS 08/16/19 Unknown History sennosides 8.6 mg tablet (senna) 8.6 mg PO DAILY PRN constipation 06/17/21 Unknown Rx #14 tabs bupropion HCl 300 mg 24 hr tablet, 300 mg PO QAM 06/02/24 Unknown History extended release (Wellbutrin XL) citalopram 40 mg tablet (Celexa) 40 mg PO QDAY 06/02/24 Unknown History lorazepam 1 mg tablet (Ativan) 1.5 mg PO BID PRN anxiety 06/02/24 Unknown History pioglitazone 15 mg tablet (Actos) 15 mg PO QDAY 06/02/24 Unknown History insulin glargine-yfgn 100 unit/mL 36 unit subcut DAILY 06/14/24 Unknown History (3 mL) subcutaneous pen insulin lispro 100 unit/mL 1 sliding scale dose subcut PRN 06/14/24 Unknown History subcutaneous pen metformin 500 mg tablet,extended 2,000 mg PO DAILY 06/14/24 Unknown History release 24 hr rosuvastatin 20 mg tablet 20 mg PO QHS 06/14/24 Unknown History dulaglutide 0.75 mg/0.5 mL 1.5 mg subcut QWEEK 07/27/24 Unknown History subcutaneous pen injector (Trulicity) Allergy/AdvReac Type Severity Reaction Status Date / Time sertraline Allergy Severe Rash Verified 08/07/24 12:39 Penicillins Allergy Unknown Verified 08/07/24 12:39 Beta-Blockers AdvReac Severe Other Verified 08/07/24 12:39 (Beta-Adrenergic Bloc Family History Father CAD (coronary artery disease) Myocardial infarction, Onset Age: 45 CVA (cerebral vascular accident) Uncle Myocardial infarction, Onset Age: 40 Other Diabetes Heart disease Surgical History s/p right apll Presence of coronary angioplasty implant and graft Femoral artery occlusion, left History of heart artery stent Social History Smoking Status: Heavy Smoker (>10/day) second hand exposure: Yes alcohol intake: never substance use type: does not use caffeine: Yes what type of physical activity do you participate in: none frequency: does not exercise seatbelt use: always Prior Cardiac Testing/Procedures Prior Cardiac Testing/Procedures: Stress Test (Within the past month and was negative.) ROS <Dr. Papito Weiner MD - Last Filed: 08/08/24 06:53> ROS ED Constitutional Constitutional ED: Denies chills or fever(s) Eyes Eyes: Reports none ENT ENT ED: Denies ear pain or rhinorrhea Cardiovascular Cardiovascular: Reports as per HPI; Denies orthopnea or paroxysmal nocturnal dyspnea Respiratory/Chest Respiratory/Chest: Reports dyspnea; Denies cough, dyspnea on exertion, orthopnea or paroxysmal nocturnal dyspnea Gastrointestinal Gastrointestinal: Denies abdominal pain, melena, nausea or vomiting Musculoskeletal Musculoskeletal: Denies arthralgias, back pain or myalgias Integumentary Denies rash Neurologic Neurologic: Denies headache(s), paresthesias or weakness Psychiatric Psychiatric: Denies anxiety or depression Endocrine Endocrinology: Denies cold intolerance or heat intolerance Hematologic/Lymphatic Hematologic/Lymphatic: Denies easy bleeding or easy bruising Allergic/Immunologic Allergic/Immunologic ED: Denies mouth swelling or tongue swelling EXAM <Dr. Papito Weiner MD - Last Filed: 08/08/24 06:53> Physical Exam Const Vital Signs: 08/07/24 12:36 08/07/24 12:53 08/07/24 12:53 Temperature 98.4 F Temperature Source Oral Pulse Rate 67 Respiratory Rate 20 H Respiratory Effort Normal Non-Labored Blood Pressure 135/77 H Blood Pressure Mean 96 Pulse Ox 98 97 Oxygen Delivery Method Room Air Room Air 08/07/24 13:43 08/07/24 14:00 08/07/24 15:00 Temperature Temperature Source Pulse Rate 61 62 61 Respiratory Rate 18 19 H 20 H Respiratory Effort Blood Pressure 122/74 H 122/74 H 137/77 H Blood Pressure Mean 90 90 97 Pulse Ox 97 98 100 Oxygen Delivery Method Room Air Room Air 08/07/24 16:08 Temperature 97.8 F Temperature Source Pulse Rate 72 Respiratory Rate 16 Respiratory Effort Blood Pressure 131/70 H Blood Pressure Mean 90 Pulse Ox 100 Oxygen Delivery Method Positive well nourished and well developed; Negative for obese General Appearance ED: well developed; Negative for pallor Nutritional Appearance: Negative for obese HEENT Reports moist mucous membranes normocephalic and atraumatic Eyes PERRL and EOMs intact bilaterally General Eye ED: Negative for pale conjunctiva or scleral icterus Neck no lymphadenopathy, supple and no JVD Chest Wall inspection of chest normal and palpation of chest normal Resp normal respiratory effort and clear to auscultation bilaterally Cardio regular rate, regular rhythm, S1 normal heart sound, S2 normal heart sound and no murmurs GI normal to inspection, nondistended, normoactive bowel sounds, soft to palpation, non-tender and non-distended; Negative for hepatosplenomegaly Back/Spine no CVA tenderness Extremity Extremity Narrative: There is no asymmetry, swelling, discoloration, leg vein distention, palpable cords or tenderness along the distribution of the deep venous system. Patient does have stigmata of peripheral arterial disease. There is no evidence of acute ischemia. Neuro oriented x3 and CN's II-XII intact bilaterally Sensorium / Orientation: awake and alert Psych mental status grossly normal Skin no rashes or lesions noted and no wounds General Skin Exam: Negative for jaundice or pallor <Dr. Fidencio Guerrero MD - Last Filed: 08/07/24 16:06> Physical Exam Const Vital Signs: 08/07/24 12:36 08/07/24 12:53 08/07/24 12:53 Temperature 98.4 F Temperature Source Oral Pulse Rate 67 Respiratory Rate 20 H Respiratory Effort Normal Non-Labored Blood Pressure 135/77 H Blood Pressure Mean 96 Pulse Ox 98 97 Oxygen Delivery Method Room Air Room Air 08/07/24 13:43 08/07/24 14:00 08/07/24 15:00 Temperature Temperature Source Pulse Rate 61 62 61 Respiratory Rate 18 19 H 20 H Respiratory Effort Blood Pressure 122/74 H 122/74 H 137/77 H Blood Pressure Mean 90 90 97 Pulse Ox 97 98 100 Oxygen Delivery Method Room Air Room Air 08/07/24 16:08 Temperature 97.8 F Temperature Source Pulse Rate 72 Respiratory Rate 16 Respiratory Effort Blood Pressure 131/70 H Blood Pressure Mean 90 Pulse Ox 100 Oxygen Delivery Method MDM <Dr. Papito Weiner MD - Last Filed: 08/08/24 06:53> [facility] Narrative Medical decision making narrative: Differential diagnosis cardiac versus noncardiac. Noncardiac would be anxiety, GI etiology, doubt biliary. Doubt pulmonary embolus. Workup included EKG, chest x-ray and appropriate blood work. Lab Data Attestation: I reviewed the patient's lab results. Lab results narrative: CBC is unremarkable. BMP is unremarkable. First troponin is normal. Glucose is 265 with a normal CO2 anion gap. Patient has chronically elevated glucose levels. Labs: Laboratory Results - last 24 hr 08/07/24 08/07/24 12:40 14:55 WBC 9.6 RBC 4.60 Hgb 14.7 Hct 44.2 MCV 96.1 H MCH 32.0 MCHC 33.3 RDW Std Deviation 47.2 H RDW Coeff of Miriam 13.2 Plt Count 303 MPV 9.4 Immature Gran % (Auto) 0.400 Neut % (Auto) 66.0 Lymph % (Auto) 23.8 [place] % (Auto) 7.6 Eos % (Auto) 1.6 Baso % (Auto) 0.6 Absolute Neuts (auto) 6.4 Absolute Lymphs (auto) 2.29 Nucleated RBC % 0 Sodium 136 Potassium 4.0 Chloride 106 Carbon Dioxide 27.0 Anion Gap 3 L BUN 11 Creatinine 0.98 Estim Creat Clear Calc 94.15 Est GFR (MDRD) Af Amer 104 Est GFR (MDRD) Non-Af 86 BUN/Creatinine Ratio 11.2 Glucose 265 H Calcium 8.8 Troponin I High Sens 3 3 Radiography Chest X-Ray - ED: 1 View and Read by ED Physician (Normal cardiac silhouette and size. There are some increased interstitial markings at the bases. This appears to be new from prior. There is no cardiomegaly. Cardiac silhouette is normal. [place] is normal. Osseous structures are unremarkable.) Diagnostic Testing: Clinical Impression(s) from Imaging Studies Chest X-Ray 08/07/24 12:45 IMPRESSION: Mild increased linear markings at the left lung base as compared to prior study suggestive of either linear atelectasis and/or early infiltrate. Electronically Signed: Puneet Ross MD at 13:16 EST , EKG Initial EKG: Attestation: I personally reviewed and interpreted this EKG as follows: Interpretation: Sinus Rhythm (Rate is 64. EKG is normal. CT interval is 144 ms per cures duration 80 ms per QT duration 392 ms. [place] is normal) Treatment and Re-Evaluation :: Second troponin to be drawn now 1445. The evening physician was made aware of patient. If second troponin is negative patient will be discharged. The second troponin to be checked by Dr. Preston Guerrero <Dr. Fidencio Guerrero MD - Last Filed: 08/07/24 16:06> [facility] Lab Data Labs: Laboratory Results - last 24 hr 08/07/24 08/07/24 12:40 14:55 WBC 9.6 RBC 4.60 Hgb 14.7 Hct 44.2 MCV 96.1 H MCH 32.0 MCHC 33.3 RDW Std Deviation 47.2 H RDW Coeff of Miriam 13.2 Plt Count 303 MPV 9.4 Immature Gran % (Auto) 0.400 Neut % (Auto) 66.0 Lymph % (Auto) 23.8 [place] % (Auto) 7.6 Eos % (Auto) 1.6 Baso % (Auto) 0.6 Absolute Neuts (auto) 6.4 Absolute Lymphs (auto) 2.29 Nucleated RBC % 0 Sodium 136 Potassium 4.0 Chloride 106 Carbon Dioxide 27.0 Anion Gap 3 L BUN 11 Creatinine 0.98 Estim Creat Clear Calc 94.15 Est GFR (MDRD) Af Amer 104 Est GFR (MDRD) Non-Af 86 BUN/Creatinine Ratio 11.2 Glucose 265 H Calcium 8.8 Troponin I High Sens 3 3 Radiography Diagnostic Testing: Clinical Impression(s) from Imaging Studies Chest X-Ray 08/07/24 12:45 IMPRESSION: Mild increased linear markings at the left lung base as compared to prior study suggestive of either linear atelectasis and/or early infiltrate. Electronically Signed: Puneet Ross MD at 13:16 EST , Treatment and Re-Evaluation Comments:: Patient checked out to me, his repeat troponin came back at 3 for delta of 0. He is in agreement with being discharged home, all questions answered. Discharge Plan Triage Chief Complaint: Chest Pain ED Provider: Papito Weiner Dx/Rx/DC Orders Clinical Impression: Chest pain, Type 2 diabetes mellitus, Atherosclerotic heart disease of [place] coronary artery without angina pectoris, Essential hypertension, Presence of coronary angioplasty implant and graft, Hyperlipidemia, Dyspnea, Tobacco use disorder Instructions: ED Chest Pain, Noncardiac, ED Chest Pain, Uncertain Cause Prescriptions: No Action aspirin [Adult Low Dose Aspirin] 81 mg tablet,delayed release (DR/EC) 81 mg PO DAILY clopidogrel 75 mg tablet 75 mg PO DAILY Qty: 30 11RF nitroglycerin 0.4 mg tablet, sublingual 0.4 mg SUBLINGUAL Q5-15M PRN (Reason: Cardiac/Chest Pain) Qty: 25 3RF cyclobenzaprine 5 mg tablet 5 mg PO QHS lorazepam [Ativan] 1 mg tablet 1.5 mg PO BID PRN (Reason: anxiety) bupropion HCl [Wellbutrin XL] 300 mg tablet extended release 24 hr 300 mg PO QAM citalopram [Celexa] 40 mg tablet 40 mg PO QDAY pioglitazone [Actos] 15 mg tablet 15 mg PO QDAY Trulicity 0.75 mg/0.5 mL pen injector 1.5 mg subcut QWEEK sennosides [senna] 8.6 mg tablet 8.6 mg PO DAILY PRN (Reason: constipation) Qty: 14 0RF metformin 500 mg tablet extended release 24 hr 2,000 mg PO DAILY insulin lispro 100 unit/mL insulin pen 1 sliding scale dose subcut PRN rosuvastatin 20 mg tablet 20 mg PO QHS insulin glargine-yfgn 100 unit/mL (3 mL) insulin pen 36 unit subcut DAILY Primary Care Provider: Srinath Samuels Referrals: Srinath Samuels DO [Primary Care Provider] - As Needed Print Language: Bengali Disposition Disposition: Home, Self Care Discharge Date/Time: 08/07/24 16:08
[2024-08-07 14:54] LABS: Reflex Troponin-HS? (from REC) Y
[2024-08-07 15:00] VITALS: BP 137/77; PULSE 61; RESP 20; O2SAT 100
[2024-08-07 15:58] LABS: Troponin-I HS 3 pg/mL (3.0-78.0)
[2024-08-07 16:08] VITALS: BP 131/70; PULSE 72; RESP 16; TEMP 36.6; O2SAT 100
== END 2024-08-07 16:08 | disposition home or self-care (01) ==
PROVIDERS: Emergency Provider Emergency Medicine; PCP Student in an Organized Health Care Education/Training Program; Visit Provider Emergency Medicine
DX: R07.9 Chest pain, unspecified (principal); E11.51 Type 2 diabetes mellitus with diabetic peripheral angiopathy without gangrene; Z79.4 Long term (current) use of insulin; R07.0 Pain in throat; I10 Essential (primary) hypertension; R06.00 Dyspnea, unspecified; I25.10 Atherosclerotic heart disease of native coronary artery without angina pectoris; E78.00 Pure hypercholesterolemia, unspecified; F17.200 Nicotine dependence, unspecified, uncomplicated; M54.9 Dorsalgia, unspecified; G89.29 Other chronic pain; I25.2 Old myocardial infarction; Z79.82 Long term (current) use of aspirin; Z79.85 Long-term (current) use of injectable non-insulin antidiabetic drugs; Z79.02 Long term (current) use of antithrombotics/antiplatelets; Z79.899 Other long term (current) drug therapy; Z95.5 Presence of coronary angioplasty implant and graft
CPT/HCPCS: 36415; 71045; 80048; 84484; 85025; 93005; 99285

== ENCOUNTER 2024-08-13 23:12 | Emergency (ER) | payer OTHER, SELFPAY ==
[2024-08-13 23:12] VITALS: BP 159/91; PULSE 66; RESP 8; TEMP 36.6; O2SAT 98; BMI 26.3
[2024-08-13 23:17] VITALS: PULSE 62; RESP 11; O2SAT 100
--- NOTE | 2024-08-13 23:22 | EKG12_ITS ---
Test Reason : CP Blood Pressure : */* mmHG Vent. Rate : 62 BPM Atrial Rate : 62 BPM P-R Int : 134 ms QRS Dur : 92 ms QT Int : 398 ms P-R-T Axes : 58 71 -4 degrees QTcB Int : 403 ms Normal sinus rhythm Nonspecific T wave abnormality Abnormal ECG Confirmed by Saravanan Tom ([id number]), newspaper editor managing ANITRA HERNANDEZ ([id number]) on 08/15/2024 10:32:38 AM Referred By: Confirmed By: Saravanan Tom
--- NOTE | 2024-08-13 23:23 | EDS_ITS ---
HPI History of Present Illness Chief Complaint: Chest Pain Detail of Chief Complaint: Chest pain that started 2 to 3 hours prior to arrival Informant: patient Onset/Context/Timing Onset: Today and Hours Activity at onset: sudden and rest Timing: Continuous and Waxes and wanes Quality: Positive for Sharp Location: Left Chest Current Severity: Mild Maximum Severity: Moderate Worsened By: Nothing Relieved By: Nothing Associated Symptoms: Positive for Nausea, Dyspnea and - (Left arm numbness. The pain did not radiate anywhere); Negative for Vomiting, Diaphoresis, Cough, Fever, Lightheadedness, Acid Reflux or Palpitations Narrative Narrative: Patient is a 48-year-old male. He presents with chest pain that is described as sharp on the left side that started to 3 hours prior to presentation. He was getting ready for bed. Nothing in particular makes the pain better or worse. He did report some nausea and shortness of breath. He also stated that his left arm felt numb. The pain did not radiate anywhere. He denies neck pain. Patient had similar presentation on the . He was seen by me at that time. He is a 48-year-old male with known history of coronary disease, peripheral arterial disease with symptoms of claudication who continues to smoke 1.5 packs/day, hypertension, hyperlipidemia and type 2 diabetes.. He had a recent Cardiolite stress test that was negative. He recently saw Dr. Tom. Dr. Rahman saw him for follow-up of recent ER visit for chest pain. He felt the chest pain was not cardiac in etiology. He reports compliance with aspirin and Plavix. He denies abdominal pain, black stool or maroon-colored stool. Patient denies pleuritic pain, orthopnea, PND. He denies history of VTE. He has no risk factors for VTE. Denies leg pain, swelling discoloration. He does report calf pain if he walks briskly up an incline. He is unable to tell me how far he can walk before he gets symptoms that are suggestive of claudication. Prior Similar Symptoms: Yes and - (Seen August 07 for similar presentation and workup was negative.) Recent Illness/Hospitalization: Yes CVD Risk Factors: Positive for Hypertension, Diabetes, Hypercholesterolemia and Smoking PE Risk Factors: Negative for Recent Travel/Surgery, Recent Immobilization, Prior DVT or PE, Cancer or OCP + Smoking + >/=35 TAD Risk Factors: Positive for Hypertension; Negative for Marfan's Syndrome or Family History [facility] Medical History Hyperlipidemia Essential hypertension Acute HI, anterolateral wall (2011) Chronic back pain Atherosclerotic heart disease of [place] coronary artery without angina pectoris Type 2 diabetes mellitus Femoral artery occlusion, right Pain of right calf Diabetes Heart disease Diabetes mellitus type II Coronary artery disease Chronic back pain Home Medications ?Medication ?Instructions ?Recorded ?Last Taken ?Type aspirin 81 mg tablet,delayed 81 mg PO DAILY BLOOD THINNER 07/11/18 01/25/19 History release (Adult Low Dose Aspirin) clopidogrel 75 mg tablet 75 mg PO DAILY HEART #30 tabs 08/14/19 Unknown Rx nitroglycerin 0.4 mg sublingual 0.4 mg sublingual Q5-15M PRN 08/14/19 Unknown Rx tablet Cardiac/Chest Pain #25 tabs cyclobenzaprine 5 mg tablet 5 mg PO QHS 08/16/19 Unknown History sennosides 8.6 mg tablet (senna) 8.6 mg PO DAILY PRN constipation 06/17/21 Unknown Rx #14 tabs bupropion HCl 300 mg 24 hr tablet, 300 mg PO QAM 06/02/24 Unknown History extended release (Wellbutrin XL) citalopram 40 mg tablet (Celexa) 40 mg PO QDAY 06/02/24 Unknown History lorazepam 1 mg tablet (Ativan) 1 mg PO BID PRN anxiety 06/02/24 08/13/24 History pioglitazone 15 mg tablet (Actos) 15 mg PO QDAY 06/02/24 Unknown History insulin glargine-yfgn 100 unit/mL 36 unit subcut DAILY 06/14/24 Unknown History (3 mL) subcutaneous pen insulin lispro 100 unit/mL 1 sliding scale dose subcut PRN 06/14/24 Unknown History subcutaneous pen metformin 500 mg tablet,extended 2,000 mg PO DAILY 06/14/24 Unknown History release 24 hr rosuvastatin 20 mg tablet 20 mg PO QHS 06/14/24 Unknown History dulaglutide 1.5 mg/0.5 mL 1.5 mg subcut QWEEK 08/13/24 Unknown History subcutaneous pen injector (Trulicity) Allergy/AdvReac Type Severity Reaction Status Date / Time sertraline Allergy Severe Rash Verified 08/07/24 12:39 Penicillins Allergy Unknown Verified 08/07/24 12:39 Beta-Blockers AdvReac Severe Other Verified 08/07/24 12:39 (Beta-Adrenergic Bloc Family History Father CAD (coronary artery disease) Myocardial infarction, Onset Age: 45 CVA (cerebral vascular accident) Uncle Myocardial infarction, Onset Age: 40 Other Diabetes Heart disease Surgical History s/p right apll Presence of coronary angioplasty implant and graft Femoral artery occlusion, left History of heart artery stent Social History Smoking Status: Heavy Smoker (>10/day) second hand exposure: Yes alcohol intake: never substance use type: does not use caffeine: Yes what type of physical activity do you participate in: none frequency: does not exercise seatbelt use: always ROS ROS ED Constitutional Constitutional ED: Denies chills, fever(s), subjective or sweats Eyes Eyes: Denies none, blurry vision or change in vision ENT ENT ED: Denies ear pain, rhinorrhea or sore throat Cardiovascular Cardiovascular: Reports as per HPI; Denies orthopnea or paroxysmal nocturnal dyspnea Respiratory/Chest Respiratory/Chest: Reports dyspnea; Denies cough, dyspnea on exertion, orthopnea or paroxysmal nocturnal dyspnea Gastrointestinal Gastrointestinal: Reports nausea; Denies abdominal pain, melena or vomiting Musculoskeletal Musculoskeletal: Denies arthralgias, back pain or myalgias Integumentary Denies rash Psychiatric Psychiatric: Reports anxiety, depression and other Details: Patient reports he is depressed since the of his June 23. He states he has no children. His 's children are in their 40s. Hematologic/Lymphatic Hematologic/Lymphatic: Denies easy bleeding or easy bruising EXAM Physical Exam Const Vital Signs: 08/13/24 23:12 08/13/24 23:12 08/13/24 23:17 Temperature 98 F Temperature Source Oral Pulse Rate 66 62 Respiratory Rate 8 L 11 L Respiratory Effort Normal Respiratory Pattern Normal Blood Pressure 159/91 H Blood Pressure Mean 113 Pulse Ox 98 100 Oxygen Delivery Method Room Air 08/13/24 23:30 08/13/24 23:45 08/14/24 00:00 Temperature Temperature Source Pulse Rate 67 65 61 Respiratory Rate 18 13 13 Respiratory Effort Respiratory Pattern Blood Pressure 138/97 H 131/83 H 119/75 Blood Pressure Mean 110 97 90 Pulse Ox 99 99 98 Oxygen Delivery Method 08/14/24 00:15 08/14/24 00:30 08/14/24 00:45 Temperature Temperature Source Pulse Rate 65 71 67 Respiratory Rate 19 H 17 16 Respiratory Effort Respiratory Pattern Blood Pressure 127/79 H Blood Pressure Mean 94 Pulse Ox 96 98 Oxygen Delivery Method 08/14/24 01:00 08/14/24 01:15 Temperature Temperature Source Pulse Rate 64 67 Respiratory Rate 20 H 20 H Respiratory Effort Respiratory Pattern Blood Pressure Blood Pressure Mean Pulse Ox 98 98 Oxygen Delivery Method Positive well nourished and well developed Constitutional Narrative: Patient affect is flat. He is mood is depressed. Patient speaks softly and slowly. He has odor of tobacco. He admits smoking 1.5 packs/day. Vital signs were noted and blood pressure slightly elevated. General Appearance ED: well developed and NAD HEENT Reports moist mucous membranes HEENT Narrative: Poor dentition. normocephalic and atraumatic Eyes PERRL and EOMs intact bilaterally General Eye ED: Negative for pale conjunctiva Neck no lymphadenopathy, supple and no JVD Resp normal respiratory effort and clear to auscultation bilaterally Cardio regular rate, regular rhythm, S1 normal heart sound, S2 normal heart sound and no murmurs GI normal to inspection, nondistended, normoactive bowel sounds, soft to palpation, non-tender, non-distended and no masses; Negative for hepatosplenomegaly Back/Spine Back/Spine Narrative: Inspection of the back is normal. Extremity Extremity Narrative: Patient has stigmata of peripheral arterial disease with venous stasis dermatitis. Presently there is no pitting edema. Neuro oriented x3 and CN's II-XII intact bilaterally Sensorium / Orientation: awake and alert Psych Mood & Affect: depressed Skin Skin Narrative: Dermatologic changes lower extremity exam to PAD. Heart Score History: Slightly/Non-Suspicious ECG: Normal (Computer is reading ossific T wave changes. This is artifact.) Age: >45 - <65 years Risk Factors: >/= 3 Risk Factors or History of CAD Score: 3 MDM MDM MDM Narrative Medical decision making narrative: Patient with atypical left-sided chest pain. In light of his history of monet ry disease with multiple risk factors we will obtain EKG and troponin level now and 2-hour. Since he was seen on the there is no indication in my opinion to repeat electrolyte panel or CBC. He also had a chest x-ray which was unremarkable and since he has no respiratory symptoms in my opinion this does not need to be repeated either. History & Record Review Additional record(s) reviewed:: Prior outpatient record (Dr. Saravanan Tom office report for recent visit and Cardiolite stress test results), Prior ED visit and Prior labs Lab Data Attestation: I reviewed the patient's lab results. Lab results narrative: First troponin is normal, 9. Prior troponins were reviewed. They have all been normal. Labs: Laboratory Results - last 24 hr 08/13/24 08/14/24 23:16 01:26 Troponin I High Sens 9 10 Second troponin is 10 with a delta of 1. This would rule out cardiac etiology especially in light of her recent Cardiolite stress test that was negative. And as previously documented patient had similar presentations with negative workup and even in Dr. Luke Tom's office notes he does not believe this is cardiac. EKG Initial EKG: Attestation: I personally reviewed and interpreted this EKG as follows: Interpretation: Sinus Rhythm (My opinion EKG is normal. Rate is 62. [place] interval is 134 ms per cures duration 92 ms. QT duration 398 ms. [place] normal. Computer is reading ossific changes, which is artifact.) Discharge Plan Triage Chief Complaint: Chest Pain ED Provider: Papito Weiner Dx/Rx/DC Orders Clinical Impression: Left-sided chest pain, Type 2 diabetes mellitus, Atherosclerotic heart disease of [place] coronary artery without angina pectoris, Essential hypertension, Hyperlipidemia, Peripheral arterial disease, Tobacco use disorder Instructions: ED Chest Pain, Noncardiac, ED Chest Pain, Uncertain Cause Prescriptions: No Action aspirin [Adult Low Dose Aspirin] 81 mg tablet,delayed release (DR/EC) 81 mg PO DAILY clopidogrel 75 mg tablet 75 mg PO DAILY Qty: 30 11RF nitroglycerin 0.4 mg tablet, sublingual 0.4 mg SUBLINGUAL Q5-15M PRN (Reason: Cardiac/Chest Pain) Qty: 25 3RF cyclobenzaprine 5 mg tablet 5 mg PO QHS lorazepam [Ativan] 1 mg tablet 1 mg PO BID PRN (Reason: anxiety) bupropion HCl [Wellbutrin XL] 300 mg tablet extended release 24 hr 300 mg PO QAM citalopram [Celexa] 40 mg tablet 40 mg PO QDAY pioglitazone [Actos] 15 mg tablet 15 mg PO QDAY sennosides [senna] 8.6 mg tablet 8.6 mg PO DAILY PRN (Reason: constipation) Qty: 14 0RF metformin 500 mg tablet extended release 24 hr 2,000 mg PO DAILY insulin lispro 100 unit/mL insulin pen 1 sliding scale dose subcut PRN rosuvastatin 20 mg tablet 20 mg PO QHS insulin glargine-yfgn 100 unit/mL (3 mL) insulin pen 36 unit subcut DAILY Trulicity 1.5 mg/0.5 mL pen injector 1.5 mg subcut QWEEK Primary Care Provider: Srinath Samuels Referrals: Srinath Samuels DO [Primary Care Provider] - 1-2 Weeks Print Language: Citizen Of [place] Disposition Disposition: Home, Self Care
[2024-08-13 23:30] VITALS: BP 138/97; PULSE 67; RESP 18; O2SAT 99
[2024-08-13 23:45] VITALS: BP 131/83; PULSE 65; RESP 13; O2SAT 99
[2024-08-13 23:56] LABS: Troponin-I HS (w/2H Reflex) 9 pg/mL (3.0-78.0)
[2024-08-14] VITALS (8 sets, daily range): BP systolic 119–128; BP diastolic 73–79; PULSE 58–71; RESP 13–20; TEMP 36.6; O2SAT 96–100
[2024-08-14 01:25] LABS: Reflex Troponin-HS? (from REC) Y
[2024-08-14 01:55] LABS: Troponin-I HS 10 pg/mL (3.0-78.0)
== END 2024-08-14 02:14 | disposition home or self-care (01) ==
PROVIDERS: Emergency Provider Emergency Medicine; PCP Student in an Organized Health Care Education/Training Program; Visit Provider Emergency Medicine
DX: R07.9 Chest pain, unspecified (principal); E11.51 Type 2 diabetes mellitus with diabetic peripheral angiopathy without gangrene; Z79.4 Long term (current) use of insulin; I10 Essential (primary) hypertension; F17.210 Nicotine dependence, cigarettes, uncomplicated; I25.10 Atherosclerotic heart disease of native coronary artery without angina pectoris; E78.5 Hyperlipidemia, unspecified; Z79.82 Long term (current) use of aspirin; Z79.899 Other long term (current) drug therapy; Z79.84 Long term (current) use of oral hypoglycemic drugs; Z95.5 Presence of coronary angioplasty implant and graft
CPT/HCPCS: 84484; 93005; 99284; A4216

== ENCOUNTER 2024-08-15 00:26 | Emergency (ER) | payer OTHER, SELFPAY ==
[2024-08-15 00:27] VITALS: BP 107/74; PULSE 56; RESP 18; TEMP 36.5; O2SAT 100; BMI 26.2
--- NOTE | 2024-08-15 00:52 | EKG12_ITS ---
Test Reason : CP Blood Pressure : */* mmHG Vent. Rate : 63 BPM Atrial Rate : 63 BPM P-R Int : 140 ms QRS Dur : 86 ms QT Int : 388 ms P-R-T Axes : 57 74 66 degrees QTcB Int : 397 ms Normal sinus rhythm Normal ECG When compared with ECG of 13-Aug-2024 23:14, MANUAL COMPARISON REQUIRED DATA IS UNCONFIRMED Confirmed by Saravanan Tom ([id number]), news videotape editor ANITRA HERNANDEZ ([id number]) on 08/22/2024 5:59:13 AM Referred By: Confirmed By: Saravanan Tom
--- NOTE | 2024-08-15 00:52 | CT_ITS ---
INDICATION: chest pain EXAMINATION: CT CHEST WITH CONTRAST - CTA Chest WO/W Contrast Injection TECHNIQUE: Helically acquired images were obtained of the chest following IV contrast timed in the pulmonary arterial phase with sagittal and coronal reconstructed images. Post-processing of the angiographic images was performed with multiplanar reformation and 3D reconstruction. Individualized dose optimization techniques were used for this CT. IV contrast dosage and agent: 100 mL of [id number]-[id number]. COMPARISON: 11/08/2019 CT. FINDINGS: LUNGS, PLEURA AND LARGE AIRWAYS: No consolidation or edema. No pulmonary nodule. No pleural effusion. No pneumothorax. Mild paraseptal emphysematous changes. THYROID: Unremarkable. HEART AND PERICARDIUM: Coronary artery calcification is present. No pericardial effusion. No evidence of right heart strain. Right ventricle to left ventricle ratio measures less than 1. MEDIASTINUM AND KODY: No mediastinal or hilar adenopathy. Esophagus is unremarkable. No hiatal hernia. VESSELS: No pulmonary embolism. No thoracic aortic aneurysm or dissection. UPPER ABDOMEN: The visualized upper abdomen is unremarkable. BONES: No acute abnormality. CT/CTA Chest W/WO Contrast IMPRESSION: 1. No pulmonary embolism. 2. No evidence of acute cardiopulmonary disease. 3. Mild paraseptal emphysematous changes of the lungs. Emphysema is an independent risk factor for lung cancer. Consider low dose CT lung cancer screening. Electronically Signed: Aurelio Tabor DO at 2:17 EST ,
[2024-08-15 01:03] LABS: Absolute Lymphocyte Count 2.23 X10^3/uL (0.83-4.51); Absolute Neutrophil Count 6.2 X10^3/uL (2.0-7.7); Basophil# 0.07 X10^3/uL; Basophil% 0.7 % (0-1); Eosinophil# 0.17 X10^3/uL; Eosinophils% 1.8 % (0-5); Hematocrit 42.4 % (40-54); Hemoglobin 14.3 g/dL (13.0-16.5); Lymphocyte # 2.23 X10^3/ul (0.83-4.51); Mean Corp Hgb Conc 33.7 g/dL (32-36); Mean Corpuscular Hgb 32.3 pg (27.0-32.0); Mean Corpuscular Volume 95.7 fL (80-94); Mean Platelet Vol. 9.4 fl (6.2-12.0); Monocyte# 0.95 X10^3/uL; Monocyte% 9.8 % (0-10); NRBC Flagged by Analyzer 0 % (0-5); Neutrophil # 6.21 X10^3/uL (2.7-7.7); Neutrophil % 64.2 % (47-70); Platelet Count 292 K/mm3 (150-450); RBC Distribution Width CV 13.2 % (11.6-14.6); RBC Distribution Width SD 47.2 fl (35.1-43.9); Red Blood Count 4.43 M/mm3 (4.6-6.2); White Blood Count 9.7 K/mm3 (4.4-11.0)
[2024-08-15] MEDS: Morphine 4 MG/ML Syringe IV (01:03)
[2024-08-15] MEDS: 0.9% Normal Saline (500mL Bag) 500 ML 999 ML IV (01:03)
[2024-08-15] MEDS: Ondansetron 4 MG/2 ML Vial IV (01:03)
[2024-08-15 01:22] LABS: Anion Gap 5 (5-15); BUN 19 mg/dL (7-18); BUN/Creat Ratio 19.1 RATIO (10-20); Calcium,Total 8.6 mg/dL (8.5-10.1); Chloride 108 mmol/L (98-107); EST Glomerular Filtration Rate 85 mL/min (>60); Est Glom Filt Rate - Afr Amer 102 mL/min (>60); Estimated Creatinine Clearance 92.26 ml/min; Glucose 305 mg/dL (74-106); Magnesium 2.2 mg/dL (1.6-2.6); Potassium 3.7 mmol/L (3.5-5.1); Sodium Level 140 mmol/L (136-145); Troponin-I HS 10 pg/mL (3.0-78.0)
[2024-08-15 01:26] VITALS: BP 103/67; PULSE 72; RESP 18; O2SAT 99
--- NOTE | 2024-08-15 01:33 | EDS_ITS ---
HPI History of Present Illness Chief Complaint: Chest Pain Informant: patient Narrative Narrative: Patient is a 48-year-old male with past medical history of hypertension hyperlipidemia and type 2 diabetes. He was seen on August 07 and August 14 secondary to left-sided chest pain. The last 2 evaluations showed normal troponins and chest x-ray did not reveal any acute lung pathology. The patient states that he awoke from sleep and noticed some sharp left-sided chest discomfort. He states he feels that the pain radiates into his left arm and wraps around to his left back. He states that the pain does not worsen with inspiration nor does the change of motion. He denies any recent trauma or excessive activity. He states that even though his last 2 workups for his heart were negative in the ER with the returning of the pain he was concerned and t herefore comes in for evaluation [facility] Medical History Hyperlipidemia Essential hypertension Acute [place], anterolateral wall (2011) Chronic back pain Atherosclerotic heart disease of [place] coronary artery without angina pectoris Type 2 diabetes mellitus Femoral artery occlusion, right Pain of right calf Diabetes Heart disease Diabetes mellitus type II Coronary artery disease Chronic back pain Home Medications ?Medication ?Instructions ?Recorded ?Last Taken ?Type aspirin 81 mg tablet,delayed 81 mg PO DAILY BLOOD THINNER 07/11/18 01/25/19 History release (Adult Low Dose Aspirin) clopidogrel 75 mg tablet 75 mg PO DAILY HEART #30 tabs 08/14/19 Unknown Rx nitroglycerin 0.4 mg sublingual 0.4 mg sublingual Q5-15M PRN 08/14/19 Unknown Rx tablet Cardiac/Chest Pain #25 tabs cyclobenzaprine 5 mg tablet 5 mg PO QHS 08/16/19 Unknown History sennosides 8.6 mg tablet (senna) 8.6 mg PO DAILY PRN constipation 06/17/21 Unknown Rx #14 tabs bupropion HCl 300 mg 24 hr tablet, 300 mg PO QAM 06/02/24 Unknown History extended release (Wellbutrin XL) citalopram 40 mg tablet (Celexa) 40 mg PO QDAY 06/02/24 Unknown History lorazepam 1 mg tablet (Ativan) 1 mg PO BID PRN anxiety 06/02/24 08/13/24 History pioglitazone 15 mg tablet (Actos) 15 mg PO QDAY 06/02/24 Unknown History insulin glargine-yfgn 100 unit/mL 36 unit subcut DAILY 06/14/24 Unknown History (3 mL) subcutaneous pen insulin lispro 100 unit/mL 1 sliding scale dose subcut PRN 06/14/24 Unknown History subcutaneous pen metformin 500 mg tablet,extended 2,000 mg PO DAILY 06/14/24 Unknown History release 24 hr rosuvastatin 20 mg tablet 20 mg PO QHS 06/14/24 Unknown History dulaglutide 1.5 mg/0.5 mL 1.5 mg subcut QWEEK 08/13/24 Unknown History subcutaneous pen injector (Trulicity) Allergy/AdvReac Type Severity Reaction Status Date / Time sertraline Allergy Severe Rash Verified 08/15/24 00:27 Penicillins Allergy Unknown Verified 08/15/24 00:27 Beta-Blockers AdvReac Severe Other Verified 08/15/24 00:27 (Beta-Adrenergic Bloc Family History Father CAD (coronary artery disease) Myocardial infarction, Onset Age: 45 CVA (cerebral vascular accident) Uncle Myocardial infarction, Onset Age: 40 Other Diabetes Heart disease Surgical History s/p right apll Presence of coronary angioplasty implant and graft Femoral artery occlusion, left History of heart artery stent Social History Smoking Status: Heavy Smoker (>10/day) second hand exposure: Yes alcohol intake: never substance use type: does not use caffeine: Yes what type of physical activity do you participate in: none frequency: does not exercise seatbelt use: always ROS ROS ED Constitutional Constitutional ED: Denies chills or fever(s) Eyes Eyes: Denies change in vision ENT ENT ED: Denies rhinorrhea or sore throat Cardiovascular Cardiovascular: Reports chest pain; Denies palpitations or racing heartbeat Respiratory/Chest Respiratory/Chest: Denies cough or dyspnea Gastrointestinal Gastrointestinal: Denies abdominal pain, diarrhea, nausea or vomiting Genitourinary Genitourinary ED: Denies dysuria Musculoskeletal Musculoskeletal: Reports back pain Integumentary Denies rash Neurologic Neurologic: Denies headache(s) Hematologic/Lymphatic Hematologic/Lymphatic: Denies easy bleeding or easy bruising EXAM Physical Exam Const Vital Signs: 08/15/24 00:27 08/15/24 00:29 08/15/24 01:26 Temperature 97.7 F L Temperature Source Oral Pulse Rate 56 L 72 Respiratory Rate 18 18 Respiratory Effort Normal Blood Pressure 107/74 103/67 Blood Pressure Mean 85 79 Pulse Ox 100 99 Oxygen Delivery Method Room Air Room Air 08/15/24 02:00 Temperature Temperature Source Pulse Rate 65 Respiratory Rate 12 Respiratory Effort Blood Pressure 110/76 Blood Pressure Mean 87 Pulse Ox 99 Oxygen Delivery Method Room Air Positive well nourished and well developed General Appearance ED: well developed; Negative for pallor HEENT HEENT Narrative: Normocephalic atraumatic Eyes PERRL and EOMs intact bilaterally General Eye ED: Negative for scleral icterus Neck supple Neck Narrative: No nuchal rigidity or meningeal signs Chest Wall Chest Narrative: There is reproducible left anterior chest wall pain with palpation of the intercostal regions 4-6 the patient states is the same pain has been e xperiencing No bony deformity or crepitance noted Resp normal respiratory effort Resp Narrative: Breath sounds are diminished throughout with faint expiratory wheeze and rhonchi in the bilateral bases but no signs of respiratory distress Cardio regular rate and regular rhythm Rate: other Other Details: Heart is regular rate and rhythm Radial and carotid pulses are equal and symmetric GI normal to inspection, nondistended, normoactive bowel sounds, non-tender, non- distended and no masses GI Narrative: No voluntary guarding or rigidity or pulsatile mass Auscultation: normoactive bowel sounds Palpation: soft Back/Spine no CVA tenderness Extremity normal to inspection Extremity Narrative: No asymmetric edema no pitting edema negative Homans' sign bilaterally Neuro oriented x3, CN's II-XII intact bilaterally and no sensory deficits noted Sensorium / Orientation: alert Motor Exam: strength 5/5 throughout Psych Psych Narrative: Patient has a flat affect Skin no rashes or lesions noted Skin Narrative: No overlying soft tissue changes to suggest trauma or infection General Skin Exam: Negative for jaundice or pallor MDM MDM MDM Narrative Medical decision making narrative: Patient arrived to the ER with stable vitals. He reported left-sided chest comfort which she had been evaluated for on August 07 and the . Those charts were reviewed and based on his exam today is felt this was most likely more musculoskeletal in nature as it was reproducible with palpation. However he does have multiple risk factors for cardiovascular disease and he also reported he has not been taking his Plavix as the medication has not come through the mail yet. In order to ensure that he is not having a pulmonary embolus or dissection pneumothorax pneumonia acute coronary syndrome a cardiac dysrhythmia or rib fracture I did elect to repeat laboratory studies with EKG and this time a CTA of the chest. Lab work revealed hyperglycemia but no signs of DKA or HHS. Otherwise labs were normal and very similar to his previous visits. His troponin today was 10 and this correlates with his normal sinus EKG without ischemic findings and this is the exact same value as it was roughly 24 hours ago. Therefore do not feel there is a need for a delta troponin. CTA revealed no signs of acute lung or cardiac vessel disease. As vitals are stable and overall workup is negative I do not feel there is need for further treatment in the hospital and he safer discharge and can follow-up with his doctor as an outpatient History & Record Review Discussion w/independent historian: Patient and Family Lab Data Attestation: I reviewed the patient's lab results. Labs: Laboratory Results - last 24 hr 08/15/24 00:38 WBC 9.7 RBC 4.43 L Hgb 14.3 Hct 42.4 MCV 95.7 H MCH 32.3 H MCHC 33.7 RDW Std Deviation 47.2 H RDW Coeff of Miriam 13.2 Plt Count 292 MPV 9.4 Immature Gran % (Auto) 0.500 Neut % (Auto) 64.2 Lymph % (Auto) 23.0 Tyrrell % (Auto) 9.8 Eos % (Auto) 1.8 Baso % (Auto) 0.7 Absolute Neuts (auto) 6.2 Absolute Lymphs (auto) 2.23 Nucleated RBC % 0 Sodium 140 Potassium 3.7 Chloride 108 H Carbon Dioxide 28.0 Anion Gap 5 BUN 19 H Creatinine 1.00 Estim Creat Clear Calc 92.26 Est GFR (MDRD) Af Amer 102 Est GFR (MDRD) Non-Af 85 BUN/Creatinine Ratio 19.1 Glucose 305 H Calcium 8.6 Magnesium 2.2 Troponin I High Sens 10 Radiography Diagnostic Testing: Clinical Impression(s) from Imaging Studies Chest CTA 08/15/24 00:52 IMPRESSION: 1. No pulmonary embolism. 2. No evidence of acute cardiopulmonary disease. 3. Mild paraseptal emphysematous changes of the lungs. Emphysema is an independent risk factor for lung cancer. Consider low dose CT lung cancer screening. Electronically Signed: Aurelio Tabor DO at 2:17 EST , Discharge Plan Triage Chief Complaint: Chest Pain Other Complaint: Back ED Provider: Esteban Bartholomew Dx/Rx/DC Orders Clinical Impression: Nonspecific chest pain, Type 2 diabetes mellitus, Hyperglycemia, Hyperlipidemia, Essential hypertension Instructions: ED Chest Pain, Uncertain Cause Prescriptions: No Action aspirin [Adult Low Dose Aspirin] 81 mg tablet,delayed release (DR/EC) 81 mg PO DAILY clopidogrel 75 mg tablet 75 mg PO DAILY Qty: 30 11RF nitroglycerin 0.4 mg tablet, sublingual 0.4 mg SUBLINGUAL Q5-15M PRN (Reason: Cardiac/Chest Pain) Qty: 25 3RF cyclobenzaprine 5 mg tablet 5 mg PO QHS lorazepam [Ativan] 1 mg tablet 1 mg PO BID PRN (Reason: anxiety) bupropion HCl [Wellbutrin XL] 300 mg tablet extended release 24 hr 300 mg PO QAM citalopram [Celexa] 40 mg tablet 40 mg PO QDAY pioglitazone [Actos] 15 mg tablet 15 mg PO QDAY sennosides [senna] 8.6 mg tablet 8.6 mg PO DAILY PRN (Reason: constipation) Qty: 14 0RF metformin 500 mg tablet extended release 24 hr 2,000 mg PO DAILY insulin lispro 100 unit/mL insulin pen 1 sliding scale dose subcut PRN rosuvastatin 20 mg tablet 20 mg PO QHS insulin glargine-yfgn 100 unit/mL (3 mL) insulin pen 36 unit subcut DAILY Trulicity 1.5 mg/0.5 mL pen injector 1.5 mg subcut QWEEK Primary Care Provider: Srinath Samuels Referrals: Srinath Samuels DO [Primary Care Provider] - Activity Restrictions/Additional Instructions: Your workup today did not show any signs of abnormal heart rhythm active cardiac damage or damage to your lungs or blood vessels throughout the chest. Your wo rkup indicates that your chest pain is most likely musculoskeletal/chest wall. Talk to your family doctor about potential medications to help treat this and return to the ER should you have any further concerns Print Language: [place] Disposition Disposition: Home, Self Care
[2024-08-15 02:00] VITALS: BP 110/76; PULSE 65; RESP 12; O2SAT 99
[2024-08-15 03:00] VITALS: BP 114/76; PULSE 82; RESP 18; O2SAT 99
[2024-08-15] MEDS: oxyCODONE 5 MG Tablet 10 MG PO (03:03)
[2024-08-15 03:04] VITALS: BP 114/76; PULSE 69; RESP 18; TEMP 36.7; O2SAT 99
== END 2024-08-15 03:07 | disposition home or self-care (01) ==
PROVIDERS: Emergency Provider Emergency Medicine; PCP Student in an Organized Health Care Education/Training Program; Visit Provider Emergency Medicine
DX: R07.9 Chest pain, unspecified (principal); E11.65 Type 2 diabetes mellitus with hyperglycemia; Z79.4 Long term (current) use of insulin; I25.10 Atherosclerotic heart disease of native coronary artery without angina pectoris; I10 Essential (primary) hypertension; E78.5 Hyperlipidemia, unspecified; Z79.82 Long term (current) use of aspirin; Z79.01 Long term (current) use of anticoagulants; Z79.84 Long term (current) use of oral hypoglycemic drugs; Z79.85 Long-term (current) use of injectable non-insulin antidiabetic drugs; Z79.899 Other long term (current) drug therapy; I25.2 Old myocardial infarction; Z95.5 Presence of coronary angioplasty implant and graft; F17.200 Nicotine dependence, unspecified, uncomplicated
CPT/HCPCS: 71275; 80048; 83735; 84484; 85025; 93005; 96361; 96374; 96375; 99285; J7040; Q9967; A4216; J2405

== ENCOUNTER → 2024-10-23 | Outpatient (CLI) | payer OTHER, SELFPAY ==
--- NOTE | 2024-10-23 13:48 | RAD_ITS ---
PROCEDURE: CHEST PA AND LATERAL REASON FOR EXAM: Left arm tingling and numbness. TECHNIQUE: Frontal and lateral views of the chest. COMPARISON: CTA chest from 08/15/2024. FINDINGS: Cardiac size and pulmonary vasculature are within normal limits. No consolidation, pleural effusion, or pneumothorax is present. RAD/Chest PA and Lateral IMPRESSION: No acute cardiopulmonary process. [facility]
[2024-10-23 14:52] LABS: Absolute Lymphocyte Count 2.24 X10^3/uL (0.83-4.51); Absolute Neutrophil Count 6.6 X10^3/uL (2.0-7.7); Basophil# 0.05 X10^3/uL; Basophil% 0.5 % (0-1); Eosinophil# 0.14 X10^3/uL; Eosinophils% 1.5 % (0-5); Hematocrit 42.7 % (40-54); Hemoglobin 14.6 g/dL (13.0-16.5); Lymphocyte # 2.24 X10^3/ul (0.83-4.51); Lymphocyte % 23.3 % (19-41); Mean Corp Hgb Conc 34.2 g/dL (32-36); Mean Corpuscular Hgb 31.9 pg (27.0-32.0); Mean Corpuscular Volume 93.2 fL (80-94); Mean Platelet Vol. 9.3 fl (6.2-12.0); Monocyte# 0.57 X10^3/uL; Monocyte% 5.9 % (0-10); NRBC Flagged by Analyzer 0 % (0-5); Neutrophil # 6.61 X10^3/uL (2.7-7.7); Neutrophil % 68.6 % (47-70); Platelet Count 300 K/mm3 (150-450); RBC Distribution Width CV 12.5 % (11.6-14.6); Red Blood Count 4.58 M/mm3 (4.6-6.2); White Blood Count 9.6 K/mm3 (4.4-11.0)
[2024-10-23 15:01] LABS: International Normalized Ratio 0.9; Prothrombin Time (Protime)PT. 12.4 SECONDS (11.7-14.9)
[2024-10-23 15:02] LABS: Partial Thromboplast Time 21.1 Seconds (24.1-36.2)
[2024-10-23 15:25] LABS: Anion Gap 7 (5-15); BUN 19 mg/dL (7-18); BUN/Creat Ratio 17.6 RATIO (10-20); Calcium,Total 8.8 mg/dL (8.5-10.1); Chloride 106 mmol/L (98-107); Creatinine, Serum 1.08 mg/dL (0.70-1.30); EST Glomerular Filtration Rate 77 mL/min (>60); Est Glom Filt Rate - Afr Amer 93 mL/min (>60); Glucose 238 mg/dL (74-106); Potassium 4.2 mmol/L (3.5-5.1); Sodium Level 135 mmol/L (136-145)
== END | disposition home or self-care (01) ==
LOC: RAD 13:47
PROVIDERS: PCP Student in an Organized Health Care Education/Training Program; Referring Provider Physician Assistant Medical; Visit Provider Physician Assistant Medical
DX: I20.9 Angina pectoris, unspecified (principal); R06.09 Other forms of dyspnea; I25.5 Ischemic cardiomyopathy
CPT/HCPCS: 36415; 71046; 80048; 85025; 85610; 85730

== ENCOUNTER 2024-11-01 06:52 | Emergency (ER) | payer OTHER, SELFPAY ==
[2024-11-01 06:52] VITALS: BP 136/79; PULSE 67; RESP 16; TEMP 36.4; O2SAT 94; BMI 26.6
--- NOTE | 2024-11-01 07:06 | EX.ED.VIS.HA ---
HPI History of Present Illness Chief Complaint: Headache Informant: patient Onset/Context/Timing Onset: Weeks (3-4) Context: Gradual Timing: Continuous Quality -Headache: Positive for Dull Location: Frontal Worsened by: Nothing Relieved by: Nothing Associated Symptoms/Injury Associated Symptoms: Positive for Blurred Vision and Photophobia; Negative for Fever, Nausea, Vomiting, Sore Throat, Sinus Pressure or Tingling Injury - BENITEZ: Positive for Direct Trauma Narrative Narrative: Patient presents with a headache that has been getting worse over the past 3 to 4 weeks. Patient states it is constant. Patient states he bumped his head initially. Patient states his pain is mainly over the frontal area. Patient describes it as aching. Patient states nothing makes it worse and nothing makes it better. Patient does admit to some occasional photophobia and some blurred vision. Patient denies any nausea or vomiting. Patient denies any fevers or chills. [facility] Medical History Cardiomyopathy, ischemic Hyperlipidemia Essential hypertension Acute [place], anterolateral wall (2011) Chronic back pain Atherosclerotic heart disease of [place] coronary artery without angina pectoris Type 2 diabetes mellitus Femoral artery occlusion, right Pain of right calf Diabetes Heart disease Diabetes mellitus type II Coronary artery disease Chronic back pain Home Medications ?Medication ?Instructions ?Recorded ?Last Taken ?Type aspirin 81 mg tablet,delayed 81 mg PO DAILY BLOOD THINNER 07/11/18 01/25/19 History release (Adult Low Dose Aspirin) clopidogrel 75 mg tablet 75 mg PO DAILY HEART #30 tabs 08/14/19 Unknown Rx nitroglycerin 0.4 mg sublingual 0.4 mg sublingual Q5-15M PRN 08/14/19 Unknown Rx tablet Cardiac/Chest Pain #25 tabs cyclobenzaprine 5 mg tablet 5 mg PO QHS 08/16/19 Unknown History bupropion HCl 300 mg 24 hr tablet, 300 mg PO QAM 06/02/24 Unknown History extended release (Wellbutrin XL) citalopram 40 mg tablet (Celexa) 40 mg PO QDAY 06/02/24 Unknown History insulin glargine-yfgn 100 unit/mL 36 unit subcut DAILY 06/14/24 Unknown History (3 mL) subcutaneous pen insulin lispro 100 unit/mL 1 sliding scale dose subcut PRN 06/14/24 Unknown History subcutaneous pen metformin 500 mg tablet,extended 2,000 mg PO DAILY 06/14/24 Unknown History release 24 hr rosuvastatin 20 mg tablet 20 mg PO QHS 06/14/24 Unknown History dulaglutide 1.5 mg/0.5 mL 1.5 mg subcut QWEEK 08/13/24 Unknown History subcutaneous pen injector (Trulicity) lisinopril 10 mg tablet 10 mg PO QDAY 10/23/24 Unknown History meloxicam 15 mg tablet 15 mg PO QDAY 10/23/24 Unknown History Allergy/AdvReac Type Severity Reaction Status Date / Time sertraline Allergy Severe Rash Verified 10/23/24 12:50 Penicillins Allergy Unknown Verified 10/23/24 12:50 Beta-Blockers AdvReac Severe Other Verified 10/23/24 12:50 (Beta-Adrenergic Bloc Family History Father CAD (coronary artery disease) Myocardial infarction, Onset Age: 45 CVA (cerebral vascular accident) Uncle Myocardial infarction, Onset Age: 40 Other Diabetes Heart disease Surgical History s/p right apll Presence of coronary angioplasty implant and graft Femoral artery occlusion, left History of heart artery stent Social History Smoking Status: Heavy Smoker (>10/day) second hand exposure: Yes alcohol intake: never substance use type: does not use caffeine: Yes what type of physical activity do you participate in: none frequency: does not exercise seatbelt use: always ROS ROS ED Constitutional Constitutional ED: Denies chills or fever(s) Eyes Eyes: Denies blurry vision or change in vision ENT ENT ED: Denies rhinorrhea or sore throat Cardiovascular Cardiovascular: Denies chest pain or palpitations Respiratory/Chest Respiratory/Chest: Reports dyspnea; Denies cough Gastrointestinal Gastrointestinal: Denies nausea or vomiting Genitourinary Genitourinary ED: Denies dysuria or hematuria Musculoskeletal Musculoskeletal: Reports back pain and neck pain Integumentary Denies abscess or rash Neurologic Neurologic: Reports headache(s); Denies weakness Allergic/Immunologic Allergic/Immunologic ED: Denies mouth swelling or urticaria EXAM Physical Exam Const Vital Signs: 11/01/24 06:52 Temperature 97.6 F L Temperature Source Oral Pulse Rate 67 Respiratory Rate 16 Blood Pressure 136/79 H Blood Pressure Mean 98 Pulse Ox 94 Oxygen Delivery Method Room Air Positive well nourished and well developed General Appearance ED: well developed and NAD HEENT Reports normocephalic and moist mucous membranes atraumatic Eyes PERRL and EOMs intact bilaterally Neck supple and no JVD Resp normal respiratory effort and clear to auscultation bilaterally Cardio regular rate and regular rhythm GI non-tender and non-distended Palpation: soft Extremity normal to inspection and full ROM Neuro oriented x3, CN's II-XII intact bilaterally and no sensory deficits noted [place] Coma Scale: document GCS findings Spontaneous Obeys Commands Oriented 15 Sensorium / Orientation: awake and alert Speech: speech normal Motor Exam: strength 5/5 throughout Psych mental status grossly normal MDM MDM MDM Narrative Medical decision making narrative: Differential diagnosis includes intracranial bleeding, concussion, migraine headache, and sinusitis. CT scan of the brain will be obtained to assess for intracranial bleeding and sinusitis. Radiography Diagnostic Testing: Clinical Impression(s) from Imaging Studies Brain CT 11/01/24 07:23 IMPRESSION: No evidence of acute disease. Reading Location: [address] scan of the brain was obtained. There is no acute intracranial abnormality. This was interpreted by the radiologist and was also independently reviewed by myself. Treatment and Re-Evaluation Narrative: Patient was given IV fluids, Reglan, and Benadryl. Patient was feeling better after this. Patient was advised to rest in a dark quiet room. Patient was instructed to follow-up with his primary care physician in 5 to 7 days. Patient understood and was agreeable with plan. All questions were answered. Discharge Plan Triage Chief Complaint: Headache ED Provider: Isaac Prado Dx/Rx/DC Orders Clinical Impression: Headache, Hypertension Instructions: ED Headache Unspecified Prescriptions: No Action aspirin [Adult Low Dose Aspirin] 81 mg tablet,delayed release (DR/EC) 81 mg PO DAILY clopidogrel 75 mg tablet 75 mg PO DAILY Qty: 30 11RF nitroglycerin 0.4 mg tablet, sublingual 0.4 mg SUBLINGUAL Q5-15M PRN (Reason: Cardiac/Chest Pain) Qty: 25 3RF cyclobenzaprine 5 mg tablet 5 mg PO QHS bupropion HCl [Wellbutrin XL] 300 mg tablet extended release 24 hr 300 mg PO QAM citalopram [Celexa] 40 mg tablet 40 mg PO QDAY lisinopril 10 mg tablet 10 mg PO QDAY meloxicam 15 mg tablet 15 mg PO QDAY metformin 500 mg tablet extended release 24 hr 2,000 mg PO DAILY insulin lispro 100 unit/mL insulin pen 1 sliding scale dose subcut PRN rosuvastatin 20 mg tablet 20 mg PO QHS insulin glargine-yfgn 100 unit/mL (3 mL) insulin pen 36 unit subcut DAILY Trulicity 1.5 mg/0.5 mL pen injector 1.5 mg subcut QWEEK Primary Care Provider: Srinath Samuels Referrals: Srinath Samuels DO [Primary Care Provider] - 5-7 Days Print Language: Sami Disposition Disposition: Home, Self Care
--- NOTE | 2024-11-01 07:23 | CT_ITS ---
EXAM: CT of the head without contrast, with sagittal and coronal reconstructed images. CLINICAL HISTORY: Pain. COMPARISON: Head CT of 11/23/2018 TECHNIQUE: CT of the head without contrast, with sagittal and coronal reconstructed images. FINDINGS: No intracranial hemorrhage, mass, or mass effect is seen. Ventricles appear symmetric and within the normal range. No extra-axial fluid collection is noted. No acute orbital process is seen. Minimal mucosal disease is seen at the left maxillary ethmoid sinuses. No air-fluid level is noted. The remaining paranasal sinuses appear clear, as do the mastoid air cells. No acute osseous process is seen. CT/Brain/Head without Contrast IMPRESSION: No evidence of acute disease. Reading Location: [id number]
[2024-11-01] MEDS: DiphenhydrAMINE 50 MG/ML Syringe 25 MG IV (07:31)
[2024-11-01] MEDS: Metoclopramide 10 MG/2 ML Vial IV (07:31)
[2024-11-01] MEDS: 0.9% Normal Saline (1000mL) 1,000 ML 999 ML IV (07:31)
[2024-11-01 09:31] VITALS: BP 107/70; PULSE 62; RESP 18; TEMP 36.4; O2SAT 99
== END 2024-11-01 09:33 | disposition home or self-care (01) ==
PROVIDERS: Emergency Provider Emergency Medicine; PCP Student in an Organized Health Care Education/Training Program; Visit Provider Emergency Medicine
DX: R51.9 Headache, unspecified (principal); E11.9 Type 2 diabetes mellitus without complications; Z79.4 Long term (current) use of insulin; I10 Essential (primary) hypertension; I25.10 Atherosclerotic heart disease of native coronary artery without angina pectoris; E78.5 Hyperlipidemia, unspecified; I25.5 Ischemic cardiomyopathy; M54.9 Dorsalgia, unspecified; G89.29 Other chronic pain; H53.8 Other visual disturbances; F17.200 Nicotine dependence, unspecified, uncomplicated; Z79.82 Long term (current) use of aspirin; Z79.02 Long term (current) use of antithrombotics/antiplatelets; Z79.84 Long term (current) use of oral hypoglycemic drugs; Z79.85 Long-term (current) use of injectable non-insulin antidiabetic drugs; Z79.899 Other long term (current) drug therapy; Z95.5 Presence of coronary angioplasty implant and graft
CPT/HCPCS: 70450; 96361; 96374; 96375; 99282; A4216

== ENCOUNTER 2024-11-07 06:59 | Day surgery (SDC) | payer OTHER, SELFPAY ==
[2024-11-06 07:58] VITALS: BMI 26.6
--- NOTE | 2024-11-07 08:55 | CL.D_ITS ---
Patient Name: FRANCISCO ESCAMILLA Study Date: 11/07/2024 Performing: Delonte Sharif MD Ht: 70 inches 177.8 cm : 1975 Wt: 186 lbs 84.37 kg Age: 49 Gender: male BSA: 2.02 PROCEDURE(S) PERFORMED [id number])LHC/COR/LV CLINICAL PROFILE AND INDICATIONS Heart Failure: None Angina Classification Anginal Classification w/in 2 Weeks: CCS II CAD Presentations: Stable angina. CONCLUSIONS 60-65% Prox LAD, 80% distal Mid LAD (LAD does not reach the apex) 95% Prox OM1, 90% ISR Prox OM1, 90% Mid OM1 80% Prox RCA, 70% Mid RCA ISR, 95% distal RCA ISR LVEF 40% RECOMMENDATIONS Surgery consult for coronary revascularization DESCRIPTION OF PROCEDURE The patient arrived to the procedure lab. The risks and benefits of the procedure as well as a full description of our services here and current unavailability of surgical backup were fully explained to the patient and/or their significant other prior to the catheterization. The Timeout was completed, verifying the correct patient and procedure. The patient's procedural site was prepped and draped in the usual fashion. Local anesthetic was given subcutaneously to right radial region with Lidocaine 2%. Using a modified Seldinger technique, arterial access was obtained via the right radial artery, a 6Fr sheath was inserted. Caio Mccray Left Coronary Artery selective angiography was performed in multiple views using a 5 Fr. 4.0 [place] catheter. Right Coronary Artery selective angiography was then performed in multiple views using a 5 Fr. 4.0 [place] catheter. Left Ventriculography was performed in CROWELL projection using a 5 Fr. Pigtail catheter. LV to AO pullback pressures were then recorded.The arterial sheath was pulled and a TR Band was applied for hemostasis CORONARY ANGIOGRAPHY DOMINANCE: Right Dominant LEFT HEART ASSESSMENT Left Ventricular Ejection Fraction: by LV Gram 40 % Posterior basal akinesis LVEDP: 22 mmHg LEFT ANTERIOR DESCENDING ARTERY: LAD: Tubular 65% Proximal lesion in LAD Tubular 80% Mid lesion in LAD OM 1: Tubular 90% Mid lesion in MARG1 Tubular 70% Mid lesion in MARG1 In-Stent Restenosis 90% Proximal lesion in MARG1, STENT to 90% Tubular 95% Proximal lesion in MARG1 OM 2: Tubular 90% Mid lesion in MARG1 Tubular 70% Mid lesion in MARG1 In-Stent Restenosis 90% Proximal lesion in MARG1, STENT to 90% Tubular 95% Proximal lesion in MARG1 RIGHT CORONARY ARTERY: RCA: Tubular 80% Proximal lesion in RCA In-Stent Restenosis 70% Mid lesion in RCA, STENT to 70% In-Stent Restenosis 95% Distal lesion in RCA, STENT to 95%, STENT to 95% COMPLICATIONS No Complications PROCEDURE MEDICATIONS Versed 1 mg IV Fentanyl 50 mcg IV Baby Aspirin (81mg) 1 Tabs PO @ 11/07/2024 07:31:57 Plavix 75 mg PO 11/07/2024 07:32:04 SUMMARY OF HEMODYNAMIC DATA Time AIR REST AO 108/83 (95) SA 08:26:38 LV 129/10, 18 08:33:01 LV 126/9, 16 08:33:10 LV 132/29, 35 08:34:44 LV 123/20, 23 08:34:53 LVp 122/18, 22 08:34:57 AOp 128/85 (104) 08:35:05 ECG 08:49:44 08:50:32 Signed By Delonte Sharif MD On 11/07/2024 08:55:02 Delonte Sharif MD
== END 2024-11-07 10:06 | disposition home or self-care (01) ==
PROVIDERS: PCP Student in an Organized Health Care Education/Training Program; Referring Provider Internal Medicine Cardiovascular Disease; Visit Provider Internal Medicine Cardiovascular Disease
DX: T82.855A Stenosis of coronary artery stent, initial encounter (principal); E11.51 Type 2 diabetes mellitus with diabetic peripheral angiopathy without gangrene; I25.5 Ischemic cardiomyopathy; I25.118 Atherosclerotic heart disease of native coronary artery with other forms of angina pectoris; I10 Essential (primary) hypertension; E78.5 Hyperlipidemia, unspecified; I25.2 Old myocardial infarction; F17.200 Nicotine dependence, unspecified, uncomplicated; Z95.5 Presence of coronary angioplasty implant and graft; Z79.82 Long term (current) use of aspirin; Z79.02 Long term (current) use of antithrombotics/antiplatelets; Z79.84 Long term (current) use of oral hypoglycemic drugs; Z79.85 Long-term (current) use of injectable non-insulin antidiabetic drugs; Z79.899 Other long term (current) drug therapy
CPT/HCPCS: 93458; 99152; 99153; Q9967; C1769; C1894

== ENCOUNTER 2025-01-14 16:09 | Emergency (ER) | payer OTHER, SELFPAY ==
[2025-01-14 16:13] VITALS: BP 159/97; PULSE 85; RESP 18; TEMP 36.3; O2SAT 99; BMI 23.7
--- NOTE | 2025-01-14 16:22 | EKG12_ITS ---
Test Reason : GENERAL Blood Pressure : */* mmHG Vent. Rate : 70 BPM Atrial Rate : 70 BPM P-R Int : 142 ms QRS Dur : 92 ms QT Int : 392 ms P-R-T Axes : 39 -23 77 degrees QTcB Int : 423 ms Critical Test Result: STEMI Normal sinus rhythm Inferior infarct , age undetermined Consider right ventricular involvement in acute inferior infarct Abnormal ECG Confirmed by MARYA DOZIER, KAVON ([id number]), avid editor VERNA LIANG ([id number]) on 01/17/2025 11:54:38 AM Referred By: Papito Weiner Confirmed By: KAVON MALHOTRA MD
--- NOTE | 2025-01-14 16:26 | EX.ED.DYSGE1 ---
HPI History of Present Illness Chief Complaint: Hyperglycemia Detail of Chief Complaint: Blood sugar 571 here tachycardic hypoxic Informant: patient Onset/Context/Timing Onset: Days Context: Sudden Onset Timing: Continuous Quality: Elevated blood sugar since bypass surgery. Location: Endocrine Current Severity: Moderate Maximum Severity: Moderate Worsened by: uncertain Relieved by: Nothing Associated Symptoms Associated Symptoms: decreased appetite and weight loss Narrative Narrative: Patient is a 49-year-old male with type 2 diabetes on insulin who had bypass surgery per records November. He said December. He states he has not been doing well the past week with poor p.o. intake and weight loss. He does endorse thirst, dry mouth, polydipsia polyuria as well as nocturia. He states his blood sugar was 571. He denies fever, chills night sweats. He denies upper respiratory tract infectious symptoms. He states he quit smoking the day before surgery. He had three-vessel bypass surgery by Dr. Isaac Langford. Patient had a cardiac catheterization by Dr. Rg on November 07 that revealed multivessel disease and stenosis of prior stents. Patient denies headache, visual, ocular auditory symptoms. Patient denies chest discomfort. Patient did report some abdominal pain and has had a couple episodes of vomiting. Denies diarrhea. He denies dysuria, hematuria but does endorse frequency and nocturia. Patient denies skin lesions. He states he has been fatigued the past several days. Prior similar symptoms: No Recent Illness/Hospitalization: Yes [facility] Medical History Cardiomyopathy, ischemic Hyperlipidemia Essential hypertension Acute [place], anterolateral wall (2011) Chronic back pain Atherosclerotic heart disease of [place] coronary artery without angina pectoris Type 2 diabetes mellitus Femoral artery occlusion, right Pain of right calf Diabetes Heart disease Diabetes mellitus type II Coronary artery disease Chronic back pain Home Medications ?Medication ?Instructions ?Recorded ?Last Taken ?Type aspirin 81 mg tablet,delayed 81 mg PO DAILY BLOOD THINNER 07/11/18 01/25/19 History release (Adult Low Dose Aspirin) nitroglycerin 0.4 mg sublingual 0.4 mg sublingual Q5-15M PRN 08/14/19 Unknown Rx tablet Cardiac/Chest Pain #25 tabs insulin glargine-yfgn 100 unit/mL 36 unit subcut DAILY 06/14/24 Unknown History (3 mL) subcutaneous pen insulin lispro 100 unit/mL 1 sliding scale dose subcut PRN 06/14/24 Unknown History subcutaneous pen metformin 500 mg tablet,extended 2,000 mg PO DAILY 06/14/24 Unknown History release 24 hr rosuvastatin 20 mg tablet 20 mg PO QHS 06/14/24 Unknown History dulaglutide 1.5 mg/0.5 mL 1.5 mg subcut QWEEK 08/13/24 Unknown History subcutaneous pen injector (Trulicity) apixaban 5 mg tablet 5 mg PO BID 12/05/24 Unknown History metoprolol succinate 25 mg 25 mg PO QDAY 12/05/24 Unknown History tablet,extended release 24 hr rosuvastatin 40 mg tablet 40 mg PO QDAY 12/05/24 Unknown History amiodarone 200 mg tablet 200 mg PO QDAY #90 tabs 01/10/25 Unknown Rx Allergy/AdvReac Type Severity Reaction Status Date / Time sertraline Allergy Severe Rash Verified 01/14/25 16:13 Penicillins Allergy Unknown Verified 01/14/25 16:13 Beta-Blockers AdvReac Severe Other Verified 01/14/25 16:13 (Beta-Adrenergic Bloc Family History Father CAD (coronary artery disease) Myocardial infarction, Onset Age: 45 CVA (cerebral vascular accident) Uncle Myocardial infarction, Onset Age: 40 Other Diabetes Heart disease Surgical History S/P CABG x 3 s/p right apll Presence of coronary angioplasty implant and graft Femoral artery occlusion, left History of heart artery stent Social History Smoking Status: Heavy Smoker (>10/day) second hand exposure: Yes alcohol intake: never substance use type: does not use caffeine: Yes what type of physical activity do you participate in: none frequency: does not exercise seatbelt use: always ROS ROS ED Constitutional Constitutional ED: Reports weight loss; Denies chills, fever(s), subjective or sweats Eyes Eyes: Reports blurry vision bilateral; Denies change in vision ENT ENT ED: Denies ear pain, rhinorrhea or sore throat Cardiovascular Cardiovascular: Denies chest pain, orthopnea, palpitations, paroxysmal nocturnal dyspnea or racing heartbeat Respiratory/Chest Respiratory/Chest: Denies cough, dyspnea, dyspnea on exertion, orthopnea or paroxysmal nocturnal dyspnea Gastrointestinal Gastrointestinal: Reports abdominal pain, nausea, vomiting and other Details: He denies hematemesis or coffee-ground emesis. ; Denies constipation, diarrhea or melena Genitourinary Genitourinary ED: Reports urinary frequency; Denies dysuria or hematuria Musculoskeletal Musculoskeletal: Denies arthralgias, back pain or myalgias Integumentary Denies rash Neurologic Neurologic: Reports weakness Psychiatric Psychiatric: Reports depression Endocrine Endocrinology: Reports polydipsia and polyuria; Denies cold intolerance, heat intolerance or polyphagia Hematologic/Lymphatic Hematologic/Lymphatic: Reports systems reviewed and no addt'l complaints, except as documented EXAM Physical Exam Const Vital Signs: 01/14/25 16:13 01/14/25 18:12 01/14/25 20:00 Temperature 97.4 F L Temperature Source Temporal Pulse Rate 85 66 58 L Respiratory Rate 18 16 16 Blood Pressure 159/97 H 115/77 126/82 H Blood Pressure Mean 117 89 96 Pulse Ox 99 100 100 Oxygen Delivery Method Room Air Room Air Room Air Positive well developed Constitutional Narrative: Patient is thin. He does not appear well. His eyes are slightly sunken. Blood pressure is mildly elevated General Appearance ED: well developed and pallor HEENT HEENT Narrative: Tongue is slightly moist. Ears normal. Nares patent. Posterior pharynx is normal Eyes PERRL and EOMs intact bilaterally General Eye ED: Negative for pale conjunctiva or scleral icterus Neck no lymphadenopathy, supple and no JVD Chest Wall inspection of chest normal and palpation of chest normal Chest Narrative: Well-healed lean sternal scar noted. There is no evidence of infection Resp normal respiratory effort and clear to auscultation bilaterally Cardio regular rate, regular rhythm, S1 normal heart sound, S2 normal heart sound and no murmurs GI normal to inspection, nondistended, normoactive bowel sounds, non-tender, non-distended and no masses; Negative for hepatosplenomegaly Back/Spine no CVA tenderness Extremity normal to inspection General Extremety ED: Negative for edema or tenderness General Extremity: Negative for edema Neuro oriented x3, CN's II-XII intact bilaterally and no sensory deficits noted Neuro Narrative: He is awake. Psych Mood & Affect: depressed Skin no wounds and skin turgor normal General Skin Exam: pallor; Negative for elasticity normal or jaundice MDM MDM MDM Narrative Medical decision making narrative: Patient with hyperglycemia. He has symptoms of hyperglycemia. Will obtain electrolyte panel assess glucose, CO2 anion gap as well as his electrolytes. CBC to rule out anemia and determine white count. Patient was treated with Zofran for his nausea. He was given fluids for his hyperglycemia. EKG was obtained to determine if there is any findings that may suggest hyperkalemia. Clinically he does not appear to be in DKA. Prior records were reviewed and documented in the HPI narrative. History & Record Review Additional record(s) reviewed:: Prior inpatient record, Prior outpatient record, Prior ED visit and Prior labs Lab Data Attestation: I reviewed the patient's lab results. Lab results narrative: CBC is unremarkable. Electrolyte panel reveals pseudohyponatremia with a CO2 of 18 and anion gap of 16. Blood sugar is elevated at 602. Second liter of normal saline was ordered. Subcu insulin was ordered as well. Labs: Laboratory Results - last 24 hr 01/14/25 01/14/25 01/14/25 16:29 16:37 17:39 WBC 10.2 RBC 4.77 Hgb 14.9 Hct 43.2 MCV 90.6 MCH 31.2 MCHC 34.5 RDW Std Deviation 42.1 RDW Coeff of Miriam 12.6 Plt Count 396 MPV 9.9 Immature Gran % (Auto) 0.300 Neut % (Auto) 76.3 H Lymph % (Auto) 14.2 L [place] % (Auto) 7.4 Eos % (Auto) 1.1 Baso % (Auto) 0.7 Absolute Neuts (auto) 7.8 H Absolute Lymphs (auto) 1.45 Nucleated RBC % 0 Sodium 129 L Potassium 4.6 Chloride 94 L Carbon Dioxide 18.8 L Anion Gap 16 H BUN 18 Creatinine 1.19 Estim Creat Clear Calc 76.68 Est GFR (MDRD) Non-Af 74 BUN/Creatinine Ratio 15.0 Glucose 602 H* Calcium 9.9 Total Bilirubin 0.54 AST 16 ALT 23 Alkaline Phosphatase 197 H Total Protein 7.9 Albumin 4.5 Globulin 3.3 Albumin/Globulin Ratio 1.4 Urine Color Yellow Urine Clarity Clear Urine pH 6.0 Ur Specific Lissie 1.015 Urine Protein 15 H Urine Glucose (UA) 1000 H Urine Ketones Negative Urine Occult Blood 10 H Urine Nitrite Negative Urine Bilirubin Negative Urine Urobilinogen Normal Ur Leukocyte Esterase 25 H Urine RBC 0-5 SEEN Urine WBC 0-5 SEEN Ur Squamous Epith Cells 0-5 SEEN Urine Bacteria RARE Urine Mucus RARE Urine Yeast RARE POC Glucose > 500 H* 01/14/25 01/14/25 01/14/25 18:47 19:16 19:52 WBC RBC Hgb Hct MCV MCH MCHC RDW Std Deviation RDW Coeff of Miriam Plt Count MPV Immature Gran % (Auto) Neut % (Auto) Lymph % (Auto) [place] % (Auto) Eos % (Auto) Baso % (Auto) Absolute Neuts (auto) Absolute Lymphs (auto) Nucleated RBC % Sodium Potassium Chloride Carbon Dioxide Anion Gap BUN Creatinine Estim Creat Clear Calc Est GFR (MDRD) Non-Af BUN/Creatinine Ratio Glucose Calcium Total Bilirubin AST ALT Alkaline Phosphatase Total Protein Albumin Globulin Albumin/Globulin Ratio Urine Color Urine Clarity Urine pH Ur Specific Lissie Urine Protein Urine Glucose (UA) Urine Ketones Urine Occult Blood Urine Nitrite Urine Bilirubin Urine Urobilinogen Ur Leukocyte Esterase Urine RBC Urine WBC Ur Squamous Epith Cells Urine Bacteria Urine Mucus Urine Yeast POC Glucose 345 H 316 H 320 H 01/14/25 20:42 WBC RBC Hgb Hct MCV MCH MCHC RDW Std Deviation RDW Coeff of Miriam Plt Count MPV Immature Gran % (Auto) Neut % (Auto) Lymph % (Auto) [place] % (Auto) Eos % (Auto) Baso % (Auto) Absolute Neuts (auto) Absolute Lymphs (auto) Nucleated RBC % Sodium Potassium Chloride Carbon Dioxide Anion Gap BUN Creatinine Estim Creat Clear Calc Est GFR (MDRD) Non-Af BUN/Creatinine Ratio Glucose Calcium Total Bilirubin AST ALT Alkaline Phosphatase Total Protein Albumin Globulin Albumin/Globulin Ratio Urine Color Urine Clarity Urine pH Ur Specific Lissie Urine Protein Urine Glucose (UA) Urine Ketones Urine Occult Blood Urine Nitrite Urine Bilirubin Urine Urobilinogen Ur Leukocyte Esterase Urine RBC Urine WBC Ur Squamous Epith Cells Urine Bacteria Urine Mucus Urine Yeast POC Glucose 474 H* Treatment and Re-Evaluation :: 1753. Patient is made aware of his results. Patient made aware of the plan. Patient informed he has not been using his sliding scale as he has not been eating. Comments:: Blood sugars 345. Third liter was ordered and 5 units of insulin subcu was ordered. Suspect patient will be able to go home. He will need to reinstate his sliding scale even though he is not eating. Vital Sign Attestation:: Repeat be GT is 207. Plan is to discharge to home Discharge Plan Triage Chief Complaint: Hyperglycemia ED Provider: Papito Weiner Dx/Rx/DC Orders Clinical Impression: Type 2 diabetes mellitus with hyperglycemia, Essential hypertension, Hyperlipidemia, Hypertension, S/P CABG x 3, High anion gap metabolic acidosis, Pseudohyponatremia Instructions: ED Diabetic Hyperglycemia Prescriptions: No Action aspirin [Adult Low Dose Aspirin] 81 mg tablet,delayed release (DR/EC) 81 mg PO DAILY nitroglycerin 0.4 mg tablet, sublingual 0.4 mg SUBLINGUAL Q5-15M PRN (Reason: Cardiac/Chest Pain) Qty: 25 3RF apixaban 5 mg tablet 5 mg PO BID rosuvastatin 40 mg tablet 40 mg PO QDAY metoprolol succinate 25 mg tablet extended release 24 hr 25 mg PO QDAY metformin 500 mg tablet extended release 24 hr 2,000 mg PO DAILY insulin lispro 100 unit/mL insulin pen 1 sliding scale dose subcut PRN rosuvastatin 20 mg tablet 20 mg PO QHS insulin glargine-yfgn 100 unit/mL (3 mL) insulin pen 36 unit subcut DAILY Trulicity 1.5 mg/0.5 mL pen injector 1.5 mg subcut QWEEK amiodarone 200 mg tablet 200 mg PO QDAY Qty: 90 3RF Primary Care Provider: Srinath Samuels Referrals: Srinath Samuels DO [Primary Care Provider] - 3-5 Days Activity Restrictions/Additional Instructions: Even if you are not eating you still need to check your blood sugars and use your sliding scale. Print Language: Korean Disposition Disposition: Home, Self Care
[2025-01-14] MEDS: 0.9% Normal Saline (1000mL) 1,000 ML 1000 ML IV ×3 (16:41→19:19)
[2025-01-14] MEDS: Ondansetron 4 MG/2 ML Vial IV (16:41)
--- NOTE | 2025-01-14 16:43 | ED.RN ---
PT HAD A BYPASS SURGERY 12/2024 AND LEO FELT TIRED AND FATIGUED SINCE D/C. PT IS NOW WITH [facility] FOR F/IU VISITS. PT [facility]SA HD MORE FREQUENT URINATION, N/V, AND HIGH BS LEVELS. 591 BS.
[2025-01-14 16:48] LABS: Bedside Glucose > 500 mg/dL (74-106)
[2025-01-14 16:58] LABS: Absolute Lymphocyte Count 1.45 X10^3/uL (0.83-4.51); Absolute Neutrophil Count 7.8 X10^3/uL (2.0-7.7); Basophil# 0.07 X10^3/uL; Basophil% 0.7 % (0-1); Eosinophil# 0.11 X10^3/uL; Eosinophils% 1.1 % (0-5); Hematocrit 43.2 % (40-54); Hemoglobin 14.9 g/dL (13.0-16.5); Lymphocyte # 1.45 X10^3/ul (0.83-4.51); Lymphocyte % 14.2 % (19-41); Mean Corp Hgb Conc 34.5 g/dL (32-36); Mean Corpuscular Hgb 31.2 pg (27.0-32.0); Mean Corpuscular Volume 90.6 fL (80-94); Mean Platelet Vol. 9.9 fl (6.2-12.0); Monocyte# 0.75 X10^3/uL; Monocyte% 7.4 % (0-10); NRBC Flagged by Analyzer 0 % (0-5); Neutrophil # 7.77 X10^3/uL (2.7-7.7); Neutrophil % 76.3 % (47-70); Platelet Count 396 K/mm3 (150-450); RBC Distribution Width CV 12.6 % (11.6-14.6); RBC Distribution Width SD 42.1 fl (35.1-43.9); Red Blood Count 4.77 M/mm3 (4.6-6.2); White Blood Count 10.2 K/mm3 (4.4-11.0)
[2025-01-14 17:34] LABS: ALB/GLOB Ratio 1.4 RATIO (0.9-2.4); AST(SGOT) 16 U/L (<=37); Alanine Aminotransfer ALT/SGPT 23 U/L (<=46); Albumin, Serum 4.5 g/dL (3.5-5.0); Alkaline Phosphatase 197 U/L (40-129); Anion Gap 16 (5-15); BUN 18 mg/dL (4-19); Calcium,Total 9.9 mg/dL (7.6-11.0); Carbon Dioxide 18.8 mmol/L (21.0-32.0); Chloride 94 mmol/L (98-108); Creatinine, Serum 1.19 mg/dL (0.70-1.20); EST Glomerular Filtration Rate 74 (>60); Estimated Creatinine Clearance 76.68 ml/min (50-250); Globulin 3.3 g/dL (2.2-4.2); Glucose 602 mg/dL (70-99); Potassium 4.6 mmol/L (3.3-5.1); Protein, Total 7.9 g/dL (5.9-8.4); Sodium Level 129 mmol/L (133-145); Total Bilirubin 0.54 mg/dL (0.00-1.30)
[2025-01-14 17:45] LABS: Color, Urine Yellow (Yellow); Glucose, Dipstick 1000 mg/dl (Normal); Ketone-Dipstick Negative (Negative); Leukocyte Esterase-Dipstick 25 /ul (Negative); Nitrite-Dipstick Negative (Negative); Occult Blood-Urine 10 /ul (Negative); Protein-Dipstick 15 mg/dl (Negative); Specific Gravity, Urine 1.015 (1.002-1.030); Urine Bilirubin Dipstick Negative (Negative); Urine Clarity Clear (Clear); Urine Urobilinogen Normal (Normal)
[2025-01-14 17:52] LABS: Bacteria RARE /hpf (None Seen); Mucous, Urine RARE /hpf (<or=2+); Red Blood Cells-Urine 0-5 SEEN /hpf (0-5); Squamous Epithelial Cells - UA 0-5 SEEN /hpf (0-5); White Blood Cells 0-5 SEEN /hpf (0-5)
[2025-01-14 17:53] LABS: Yeast-Urine RARE /hpf (None Seen)
[2025-01-14 18:12] VITALS: BP 115/77; PULSE 66; RESP 16; O2SAT 100
[2025-01-14] MEDS: Insulin Lispro 100 UNIT/ML INSULN.PEN 8 UNIT SC (18:25)
[2025-01-14 19:07] LABS: Bedside Glucose 345 mg/dL (74-106)
[2025-01-14] MEDS: Insulin Lispro 100 UNIT/ML INSULN.PEN SC (19:19)
[2025-01-14 19:39] LABS: Bedside Glucose 316 mg/dL (74-106)
[2025-01-14 20:00] VITALS: BP 126/82; PULSE 58; RESP 16; O2SAT 100
[2025-01-14 20:11] LABS: Bedside Glucose 320 mg/dL (74-106)
[2025-01-14 21:02] LABS: Bedside Glucose 474 mg/dL (74-106)
[2025-01-14 21:33] LABS: Bedside Glucose 207 mg/dL (74-106)
[2025-01-14 21:53] VITALS: BP 126/80; PULSE 63; RESP 16; TEMP 36.6; O2SAT 99
== END 2025-01-14 21:56 | disposition home or self-care (01) ==
PROVIDERS: Emergency Provider Emergency Medicine; PCP Student in an Organized Health Care Education/Training Program; Referring Provider Emergency Medicine; Visit Provider Emergency Medicine
DX: E11.65 Type 2 diabetes mellitus with hyperglycemia (principal); Z79.4 Long term (current) use of insulin; I25.10 Atherosclerotic heart disease of native coronary artery without angina pectoris; E87.20 Acidosis, unspecified; E78.5 Hyperlipidemia, unspecified; R11.2 Nausea with vomiting, unspecified; I10 Essential (primary) hypertension; M54.9 Dorsalgia, unspecified; G89.29 Other chronic pain; R10.9 Unspecified abdominal pain; R35.1 Nocturia; R35.0 Frequency of micturition; Z79.82 Long term (current) use of aspirin; Z79.85 Long-term (current) use of injectable non-insulin antidiabetic drugs; Z79.899 Other long term (current) drug therapy; I25.2 Old myocardial infarction; Z87.891 Personal history of nicotine dependence; Z95.1 Presence of aortocoronary bypass graft; Z95.5 Presence of coronary angioplasty implant and graft
CPT/HCPCS: 80053; 81001; 82962; 85025; 93005; 96361; 96374; 99285; J2405

== ENCOUNTER 2025-01-24 13:31 | Outpatient (RCR) | payer OTHER, SELFPAY ==
--- NOTE | 2025-01-24 13:43 | PCM.CR.HP2 ---
CR - History & Physical General Arrival date:: 01/24/25 Arrival time:: 13:43 Date of Referral:: 01/17/25 Date of CR Evaluation:: 01/24/25 Referring Physician: Dr. Sharif Primary Diagnosis: CABG History of Present Cardiac Event Onset Date Coronary Artery Bypass Graft:: Yes (11/23/2024 onset) Medications Ambulatory Orders ?Medication ?Instructions ?Recorded aspirin 81 mg tablet,delayed 81 mg PO DAILY BLOOD THINNER 07/11/18 release (Adult Low Dose Aspirin) nitroglycerin 0.4 mg sublingual 0.4 mg sublingual Q5-15M PRN 08/14/19 tablet Cardiac/Chest Pain #25 tabs insulin glargine-yfgn 100 unit/mL 36 unit subcut DAILY 06/14/24 (3 mL) subcutaneous pen insulin lispro 100 unit/mL 1 sliding scale dose subcut PRN 06/14/24 subcutaneous pen metformin 500 mg tablet,extended 2,000 mg PO DAILY 06/14/24 release 24 hr dulaglutide 3 mg/0.5 mL mg subcut 01/17/25 subcutaneous pen injector (Trulicity) metoprolol succinate 25 mg 25 mg PO QDAY #90 tabs 01/17/25 tablet,extended release 24 hr rosuvastatin 40 mg tablet 40 mg PO QDAY #90 tabs 01/17/25 Allergies Allergies sertraline Allergy (Severe, Verified 01/17/25 09:39) Rash Penicillins Allergy (Verified 01/17/25 09:39) Unknown Beta-Blockers (Beta-Adrenergic Bloc Adverse Reaction (Severe, Verified 01/17/25 09:39) Other BRADYCARDIA Sleep Disorder Evaluation Hx of Sleep Apnea: No Do you snore loudly (louder than talking or can be heard through closed doors)?: No Do you often feel tired/ fatigued/ sleepy during daytime?: No Has anyone observed you stop breathing during sleep?: No History of Hypertension (for STOP score): Yes STOP Results: Negative Advanced Directives Advanced Directives Do you have a Healthcare Power of Advice Line Rn?: No Living Will: No Advance Directives Information Provided: No Advance Directives on File: No DNR Order?:: No Past Medical History Covid-19 Screening Physicial Symptoms Other Clinical Concerns Exposure Risk Pertinent Comorbidities Has a serious heart condition:: Yes Diabetic:: Yes Past Medical Illness Medical History Cardiomyopathy, ischemic Hyperlipidemia Essential hypertension Acute [place], anterolateral wall (2011) Chronic back pain Atherosclerotic heart disease of [place] coronary artery without angina pectoris Type 2 diabetes mellitus Femoral artery occlusion, right Pain of right calf Diabetes Heart disease Diabetes mellitus type II Coronary artery disease Chronic back pain Past Surgical History Surgical History S/P CABG x 3 s/p right apll Presence of coronary angioplasty implant and graft Femoral artery occlusion, left History of heart artery stent Surgical History: - (Restorationist removal) Family History Summary Family History Father CAD (coronary artery disease) Myocardial infarction, Onset Age: 45 CVA (cerebral vascular accident) Uncle Myocardial infarction, Onset Age: 40 Other Diabetes Heart disease Social History Smoking History Smoking Status: Former smoker Years Smokin Packs Smoked per Day: 2.5 (Stopped 2 months ago) Hx Tobacco Use: Yes Alcohol Use Alcohol Usage: No Substance Abuse Hx Substance Use: No Occupation Occupation (List type of work in comments):: Employed Hours worked per day:: 10 Social Environment Status Marital Status: Current Living Arrangements Living Environment:: Alone Safety Do you feel safe in your surroundings?: Yes Assistance Do you need any assistance at home?: no Review of Systems Review of Systems Hints Review of Present Symptoms: Reports PVD, Dizziness/Lightheadedness, Fatigue, Heart Arrhythmia/Irregularities, Appetite - Normal and Appetite - Special Diet; Denies Shortness of Breath at Rest, Shortness of Breath with Exertion, Operative Discomfort, Angina, Wound Healing, Sleep - Normal or Sexual Changes Pain Is Patient Pain Free?: Yes Risk Factor Assessment Chief Complaint Chief Complaint: CABG Vital Signs Pulse Ox: 99 Blood Pressure: 118/82 Pulse Pulse Rate: 73 Hypertension How long have you been treated?: unsure Blood Pressure Sitting - Right Arm: 118/82 Stress Stress: Home/Family Diabetes Diabetic History: Type II Nutrition Referral for Diabetes: No Obesity Height: 5 ft 10 in Weight:: 176 lb Weight in Pounds: 176.0 lbs Body Mass Index (BMI): 25.2 Nutritional Referral for Obesity: No Physical Inactivity Physical Inactivity: Reg Exercise 30 min/day Risk Stratification Risk Guidelines: Moderate Risk: Risk Factor for Obesity, Risk Factor for Sedentary Lifestyle and Risk Factor for Depression and Highest Risk: Risk Factor for Smoking, Risk Factor for Dyslipidemia, Risk Factor for Diabetes and Risk Factor for Hypertension For Smoking Smoking Risk Guidelines For Dyslipidemia Dyslipidemia Risk Guidelines For Diabetes Mellitus Diabetes Risk Guidelines For Obesity/Overweight Obesity/Overweight Risk Guidelines For Hypertension Hypertension Risk Guidelines For Sedentary Lifestyle Sedentary Lifestyle Risk Guidelines For Depression Depression Risk Guidelines Family History Family History Father CAD (coronary artery disease) Myocardial infarction, Onset Age: 45 CVA (cerebral vascular accident) Uncle Myocardial infarction, Onset Age: 40 Other Diabetes Heart disease Motivation Motivation to Participate On a scale of 1 to 10, how prepared are you to commit to attending program?: 8 What do you see as barriers to successfully being able to complete the program?: nothing What do you see as the benefits of succesfully completing the program? In other words, what do you hope to get out of participating in the program?: be stronger, resume recreational activities Are there issues you are dealing with that will interfere with completing the program?: no Do you have a spouse or signficant other, family or friends who will help support you to complete the program?: yes
--- NOTE | 2025-01-24 13:53 | PCM.CR.ITP ---
Diagnosis General Information Admitting Diagnosis: CABG Personal Learning Style:: Audio/Visual Barriers to Learning: No Barriers Stage of change r/t lifestyle modifications:: Contemplation Gave educational material for:: Treating Heart Disease, How The Heart Works, What it means to have Heart Disease, How Coronary Artery Disease is Diagnosed, Heart Procedures, What Heart Medications Do, Risk Factors & Modifications, Living an Active Life, Nutrition, Emotions & Heart Disease, Stress Management & Relaxation and Sleep Disorders & Heart Disease Education/Goals Cardiac Rehabilitation Goals Personal Goals: Initial Assessment: Improve energy level, Get back to work, or to resume activities faster, Improve muscle strength and endurance, Improve diet and eating habits (eat healthier) and Control risk factors (learn risk factor modification) Scale for measuring improvement of personal goals Diagnosis & Disease Process Outcomes/Goals: Pt IDs own risk factors & lifestyle modifications by Session 10, Verbalizes symptoms of angina & response by session 3., Pt independently manages and Other Additional Outcomes/Goals: Plan/Interventions: Assist Pt to ID & engage in lifestyle modification to reduce CVD risk, Instruct on individual risk factors, Review symptoms of angina & emergency actions, Review secondary diagnosis & identify educational needs. and Other see comment 30 day Reassessments:: Not Met 30 day Reassessments:: Not Met 30 day Reassessments:: Not Met 30 day Reassessments:: Not Met Final Reassessments:: Not Met Safety Referral to Physical Therapy: No Referral to [facility] Case Management: No Fall Risk Assessed:: Yes Assistive Devices:: None Exercise - Initial Assessment Visit Date of Eval: 01/24/25 (initial eval ) Mets: Pre-: >3 METS for 30 minutes by discharge, >5 METS for 30 minutes by discharge, >7 METS for 30 minutes by discharge and Unable to meet goal due to: (see comment below) Physician Prescribed Exercise Modalities: Treadmill, Schwinn Airdyne AD-7, SciFit Stepper, SciFit Pro-II Ergometer and SciFit Lateral [place] Frequency: 3x/week for 12 weeks [36 sessions] Intensity: 60-80% of age predicted maximum heart rate reserve Duration: 30 - 45 minutes Current METSs:: 3 Target Heart Rate:: 102-128 Resting Blood Pressure: 118/82 EKG Type: SR Outcomes & Goals Goals:: Verbalizes understanding of THR, RPE & goal METS by session 6, Documents in home exercise log/reports 30 min aerobic 5 day/wk by DC, Demonstrates accurate pulse taking by DC and Other additional outcome/goals: see below Intervention & Plan Exercise Program Goals: Instruct on personal THR & RPE, Instruct on MET level & personal MET goal, Show patient to take own pulse /validate performance until accurate, Instruct on home exercise and Other additional plan/int Physical Activity Home Exercise Physical Activity - Home Exercise: Safe Exercise, Warm-up, Self-monitoring, Cool-Down, Home Exercise > 30 min Daily and Sitting Time <3 hours/daily Outcomes & Goals Outcomes/Goals: Demonstrates correct Warm-up/exercise Cool-Down (S3) if = 2.5 METs, Verbalizes symptoms of exercise intolerance by Session 3 (S3), Demonstrate safe equipment use (S3) & follows exercise prescrition (6) and Other: See below Intervention & Plan Plan/Intervention: Instruct warm-up & cool-down if exercising at > 2 METs, Instruct on symptoms of exercise intolerance & actions to take, Instruct & monitor on saf, Assess intial functional capacity & safety risk and Other See below Nutrition - Initial Assessment Program Goals Nutrition Program Goals Patient has diagnosis of Hyperlipidemia (ICD E78)?: Yes Visit Date of Eval: 01/24/25 (initial eval ) Cholesterol/Lipids (Other Core Measures) Determine presence & major risk factors that modify LDL goal: Cigarette smoking, Hypertension or hypertensive medication, Low HDL cholesterol <40 mg/dL*, Family history of premature CHD in Male < 55 years: female <65 yearsFa and Age men > 45 years; women >/= 55 years Outcomes/Goals: Pt IDs own risk factors & lifestyle modifications by Session 10, Verbalizes symptoms of angina & response by session 3., Pt independently manages and Other Additional Outcomes/Goals: Intervention/Plan: Advocate for lipid panel cholesterol medication if applicable, Instruct on personal lipid levels & lipid goals/NCEP guidelines, Instruct on cholesterol and Other additional plan/int Diabetes (Other Core Measures) Diabetes Type: Diagnosis Type II ICD-10 E11 Insulin dependent injection/pump?: Yes Non-Insulin Dependent?: Yes Do you monitor your blood sugar at home?: Yes Referral to Diabetic Clinic:: No Weight Mgt (Other Care) Height: 5 ft 10 in Weight:: 176 lb BMI: 25.2 Outcomes/Goals: Pt sets, maintains & shows weight loss goal & trend during rehab and Other additional outcomes/goals Intervention/Plan: Instruct on ideal BMI & set weight loss goal w/patient, Assist pt to ID & incorporate diet changes for weight loss by S9, Refer to Structured Weight Loss program as appropriate, Encourage goal of using 250-300dcal per session for weight loss and Other additional plan/interventions Healthy Eating Habits Will attend diet classes:: Yes Outcomes/Goals:: Consume diet rich in vegs,fruits,whole grain/high fiber,fish,lean meat, Limit sat/trans fats,cholesterol & added salts & sugars and Other additional outcome/goals: Intervention/Plan:: Assess current eating habits and Other Additional plan/interventions Education Gave educational materials for:: Signs & symptoms of hypoglycemia, Signs & symptoms of hyperglycemia, Relate diabetes to coronary artery disease and Healthy eating Core - Initial Assessment Visit Date of Eval: 01/24/25 (initial eval ) Medication Compliance Preventative Medication(s):: Aspirin, Statin/lipid and Beta fadi H/O mental health issues: depression, anxiety, or addiction?: Yes Doesn?t believe in the benefits of treatment?: No Believes medications are unnecessary or harmful?: No Has a concern about medication side effects?: No Expresses concern over the cost of medications?: No Outcomes/Goals: Verbalizes medications,desired effect & common side effects @ DC, Pt self-reports following medication regimen, Keeps card in wallet w/medications listed by DC and Other additional outcome/goals: Interventions/plans: Instruct on medication effects & side effects, Review medication list w/patient every two weeks, Instruct importance of taking meds as ordered & assist problem solving and Other additional Tobacco Use Tobacco Use: Cigarettes (Pt stopped smoking about 2 months ago) How long ago did you quit using tobacco products?: Less than 6 months ago How many cigarettes do you smoke per day?: 50 Years Smokin Do you use smokeless tobacco?: No Outcomes/Goals: Smoking cessation achieved or maintained by discharge, Identify aids/strategies for achieving smoking cessation by session 6 and Other additional outcome/goals Interventions/plan: Instruct on effects of smoking & provide smoking cessation resource, Assist pt to set quit date & provide encouragement, Assist pt to develop strategies to achieve/maintain quit date, Assist pt w/nicotine replacement & medication for cessation success and Other additional plan/interventions Hypertension Hypertension Diagnosis:: Hypertension ICD-10 I10 Resting Blood Pressure:: 118/82 [place] [employer] Hypertension Guidelines Outcomes/Goals: Able to verbalize/achieve optimal blood pressure <130/80, Incorporates diet changes & exercise for blood pressure control by DC and Other additional outcomes/goals Interventions/plan: Instruct on optimal blood pressure, hypertension & medications, Instruct on effects of sodium, alcohol, stress, exercise &hypertension and Other additional plan/interventions Tobacco Cessation Referral Smoking Cessation Referral:: No Individual Education/Counseling:: No Education Schedule Given:: Yes Psychosocial - Initial Assess VIsit Date of Eval: 01/24/25 (initial eval ) History of previous Mental disease:: Yes History of Emotional Disorders: Depression (Pt states he was on meds years ago but is no longer and is doing well.) Self-reported stressors: Family Target Goals Target Goals Psychosocial Test Tool Used:: [employer] QOL Cardiac and PHQ-9 Questionnaire phq-9 Severity Referral to Behavioral Health PS - Interventions: Yes: Attend Stress Management Classes Outcomes/Goals: See list Psychosocial Outcomes/Goals:: ID's personal stressors & 2 strategies to manage stress by discharge and Other Additional outcome/goals: Intervention/Plan: See List Interventions/Plan:: Assess stressors,coping strategies & signs of derpression on admission, Instruct/assist pt to develop coping & personal stress Mgt strategies, Refer to Behavioral Health if appropriate, Refer to Physician if appropriate, Instruct patient to recognize signs & symptoms of depression, Instruct patient to recog and Other additional plan/intervention CRISTHIAN-Q SV Test Statements CAD is a disease of the arteries in the heart: False Examples of risk factors for heart disease: I Don't Know Angina is chest pain or discomfort: True The benefits of resistance training include: True Eating more meat and dairy products: I Don't Know Anti-platelet medications such as aspirin are important: True The only effective way to manage stress: True An exercise warm-up slowly increases heart rate: False Prepared, processed foods usually have high sodium: True Depression is common after a heart attack: True The statin medications lower cholesterol: False To control blood pressure, lower the amount of sodium: I Don't Know If someone gets chest discomfort during walking: False Transfats are partially hydrogenated vegetable oils: False Sleep apnea that is not treated increases the risk: False To control cholesterol, one should become a vegetarian: False Someone knows if he/she is exercising at the right level: True Diabetes cannot be prevented with exercise & health eating: False Stress is a large risk for heart attack: True A diet that can help lower blood pressure is rich in: True Total Score Total Correct Responses: 13 Self-Efficacy 6-Item Scale Initial Assessment: We would like to know how confident you are in doing certain activities. Please select your confidence level for: Fatigue Select Number: 5 Physical Discomfort or Pain Select Number: 6 Emotional Distress Select Number: 6 Other Symptoms or Health Problems Select Number: 5 Different Tasks and Activities Select Number: 5 Medication Select Number: 5 Total Score:: 5 Nutrition Survey Nutrition Survey Instructions Scoring Instructions Exercise - 30-day Assessment Physician Prescribed Exercise Modalities: Treadmill, Schwinn Airdyne AD-7, SciFit Stepper, SciFit Pro-II Ergometer and SciFit Lateral [employer] Manager Exercise - 60-day Assessment Physician Prescribed Exercise Modalities: Treadmill, Schwinn Airdyne AD-7, SciFit Stepper, SciFit Pro-II Ergometer and SciFit Lateral [place] Exercise - 90-day Assessment Physician Prescribed Exercise Modalities: Treadmill, Schwinn Airdyne AD-7, SciFit Stepper, SciFit Pro-II Ergometer and SciFit Lateral [employer] Manager Exercise - Final/Discharge Physician Prescribed Exercise Modalities: Treadmill, Schwinn Airdyne AD-7, SciFit Stepper, SciFit Pro-II Ergometer and SciFit Lateral [employer] Manager Frequency: 3x/week for 12 weeks [36 sessions] Intensity: 60-80% of age predicted maximum heart rate reserve Current METSs:: 3 Target Heart Rate:: 102-128 Nutrition - 30-Day Assessment Weight Mgt (Other Care) Height: 5 ft 10 in Weight:: 176 lb BMI: 25.2 Nutrition - 60-Day Assessment Weight Mgt (Other Care) Height: 5 ft 10 in Weight:: 176 lb BMI: 25.2 Core - 30-Day Assessment Tobacco Use Years Smokin Core - Final Assessment Hypertension Resting Blood Pressure:: 118/82 [place] [employer] Hypertension Guidelines Core - 60-Day Assessment Hypertension Resting Blood Pressure:: 118/82 [place] [employer] Hypertension Guidelines Psychosocial - 30-Day Assess Target Goals Target Goals Referral to Behavioral Health PS - Interventions: Yes: Attend Stress Management Classes Psychosocial - 60-Day Assess Target Goals Target Goals Referral to Behavioral Health PS - Interventions: Yes: Attend Stress Management Classes Psychosocial - 90-Day Assess Target Goals Target Goals Referral to Behavioral Health PS - Interventions: Yes: Attend Stress Management Classes Psychosocial - Final Assessmen Target Goals Target Goals Referral to Behavioral Health PS - Interventions: Yes: Attend Stress Management Classes Nutrition - 90-Day Assessment Weight Mgt (Other Care) Height: 5 ft 10 in Weight:: 176 lb BMI: 25.2 Nutrition - Final Assessment Program Goals Patient has diagnosis of Hyperlipidemia (ICD E78)?: Yes Weight Mgt (Other Care) Height: 5 ft 10 in Weight:: 176 lb BMI: 25.2
[2025-01-24 14:07] VITALS: BP 118/82; PULSE 73; O2SAT 99
[2025-01-24 14:34] VITALS: BP 118/82; BMI 25.2
[2025-01-24 14:36] VITALS: BMI 25.2
== END 2025-02-17 23:59 ==
LOC: CR 13:31
PROVIDERS: PCP Student in an Organized Health Care Education/Training Program; Referring Provider Internal Medicine Cardiovascular Disease; Visit Provider Internal Medicine Cardiovascular Disease
DX: I25.10 Atherosclerotic heart disease of native coronary artery without angina pectoris (principal); E78.5 Hyperlipidemia, unspecified; I10 Essential (primary) hypertension; I25.2 Old myocardial infarction; E11.9 Type 2 diabetes mellitus without complications; M54.9 Dorsalgia, unspecified; G89.29 Other chronic pain; Z79.4 Long term (current) use of insulin; Z79.84 Long term (current) use of oral hypoglycemic drugs; Z79.82 Long term (current) use of aspirin; Z79.899 Other long term (current) drug therapy; Z95.1 Presence of aortocoronary bypass graft; Z79.85 Long-term (current) use of injectable non-insulin antidiabetic drugs; I25.5 Ischemic cardiomyopathy; Z87.891 Personal history of nicotine dependence

== ENCOUNTER → 2025-02-09 | Outpatient (CLI) | payer OTHER, SELFPAY ==
[2025-01-24 14:34] VITALS: BMI 25.2
--- NOTE | 2025-02-09 14:30 | ECHOD_ITS ---
Reason For Study Reason For Study: [facility] CMP Procedure This was a 2D Doppler, Color Flow transthoracic echocardiogram. Exam performed in department. Left Ventricle Normal size and thickness. Moderate LV systolic dysfunction. Severe inferior hypokinesis. Posterior hypokinesis. Inferior septal hypokinesis. Estimated LVEF 40%. Stage I diastolic dysfunction. Right Ventricle Normal right ventricle. Atria The left and right atria are normal. Mitral Valve Trivial mitral valve insufficiency. Tricuspid Valve Trivial tricuspid valve insufficiency. Unable to estimate RV systolic pressure due to insufficient tricuspid regurgitant envelope. Aortic Valve Trisinus/trileaflet aortic valve. Pulmonic Valve The pulmonic valve is not well visualized. Great Vessels Mildly dilated aortic root. Pericardium/Pleural No pericardial effusion. MMode/2D Measurements & Calculations LVIDd: 4.6 cm IVSd: 0.83 cm LVOT diam: 2.0 cm LVIDs: 3.5 cm LVPWd: 1.0 cm LVOT area: 3.3 cm2 RVDd: 3.5 cm FS: 23.7 % Ao root diam: 3.9 cm LAV(MOD-bp): 24.3 ml LVAd ap4: 28.7 cm2 LAV(MOD-bp) Indexed: 12.5 ml/m2 LVLd ap4: 8.2 cm LAV(MOD-sp2): 33.2 ml EDV(MOD-sp4): 85.0 ml LAV(MOD-sp4): 18.1 ml EDV(sp4-el): 84.9 ml LVAs ap4: 19.6 cm2 LVLs ap4: 7.4 cm ESV(MOD-sp4): 45.2 ml ESV(sp4-el): 44.5 ml EF(MOD-sp4): 46.8 % EF(sp4-el): 47.6 % SV(MOD-sp4): 39.8 ml SV(sp4-el): 40.4 ml LA A4 area: 9.0 cm2 SI(MOD-sp4): 20.4 ml/m2 LA dimension(2D): 3.4 cm RA A4 area: 14.1 cm2 Time Measurements MV dec time: 0.35 sec Doppler Measurements & Calculations MV E max kenan: 66.3 cm/sec Lat Peak E' Kenan: 7.5 cm/sec Med Peak E' Kenan: 6.2 cm/sec MV A max kenan: 61.0 cm/sec E/E' lat: 8.8 E/E' med: 10.6 MV E/A: 1.1 MV V2 max: 97.2 cm/sec Ao V2 max: 83.7 cm/sec MV max P.8 mmHg MV dec slope: 190.5 cm/sec2 Ao max P.8 mmHg MV V2 mean: 43.9 cm/sec Ao V2 mean: 58.2 cm/sec MV mean P.0 mmHg Ao mean P.6 mmHg MV V2 VTI: 32.2 cm Ao V2 VTI: 18.9 cm AV (velocity ratio): 0.90 MVA(VTI): 1.7 cm2 NIRMALA(I,D): 2.9 cm2 NIRMALA(V,D): 2.9 cm2 LV V1 max: 74.4 cm/sec SV(LVOT): 55.4 ml PA V2 max: 75.1 cm/sec LV V1 max P.2 mmHg PA V2 mean: 52.2 cm/sec LV V1 mean P.1 mmHg LV V1 mean: 46.9 cm/sec LV V1 VTI: 17.0 cm ECHO/Echo Complete Interpretation Summary Moderate LV systolic dysfunction. Severe inferior hypokinesis. Posterior hypoki nesis. Inferior septal hypokinesis. Estimated LVEF 40%. Stage I diastolic dysfunction. Mildly dilated aortic root. Ordering Physician: Felisha Collins Referring Physician: Felisha Collins Performed By: Michelle Lloyd RCS
== END | disposition home or self-care (01) ==
LOC: CVS 14:29
PROVIDERS: PCP Student in an Organized Health Care Education/Training Program; Referring Provider Physician Assistant Medical; Visit Provider Physician Assistant Medical
DX: I25.5 Ischemic cardiomyopathy (principal)
CPT/HCPCS: 93306

== ENCOUNTER 2025-02-16 15:15 | Outpatient (RCR) | payer OTHER, SELFPAY | END 2025-02-17 23:59 | LOC: CR 15:15 | PROVIDERS: PCP Student in an Organized Health Care Education/Training Program; Referring Provider Internal Medicine Cardiovascular Disease; Visit Provider Internal Medicine Cardiovascular Disease | DX: Z95.1 Presence of aortocoronary bypass graft (principal); I25.5 Ischemic cardiomyopathy; R06.09 Other forms of dyspnea; Z95.5 Presence of coronary angioplasty implant and graft | CPT/HCPCS: 93798 ==

== ENCOUNTER 2025-02-26 15:15 | Outpatient (RCR) | payer OTHER, SELFPAY | END 2025-03-19 23:59 | LOC: CR 15:15 | PROVIDERS: PCP Student in an Organized Health Care Education/Training Program; Referring Provider Internal Medicine Cardiovascular Disease; Visit Provider Internal Medicine Cardiovascular Disease | DX: Z95.1 Presence of aortocoronary bypass graft (principal); I25.5 Ischemic cardiomyopathy; R06.09 Other forms of dyspnea; Z95.5 Presence of coronary angioplasty implant and graft | CPT/HCPCS: 93798 ==